=== PATIENT | female | born 1950 | race Caucasian/White ===

== ENCOUNTER → 2018-05-22 09:17 | Outpatient (CLI) | payer MEDICARE, BC, SELFPAY ==
--- NOTE | 2018-05-22 09:25 | XR_ITS ---
XR DEXA axial skeleton HISTORY: ITS.REASON: POST MENOPAUSAL ORDERING PHYSICIAN: Akhil Cunningham MD PATIENT AGE: 67 years COMPARISON: None FINDINGS: The BMD measured at the Right femoral neck is 0.922 g/cm squared with a T score of -0.8. This is considered Normal according to the World Health Organization criteria. Fracture risk is Low. Suggest follow-up exam May 2020. IMPRESSION: Normal bone density with low fracture risk
== END ==
PROVIDERS: PCP Family Medicine; Visit Provider Family Medicine
DX: Z78.0 Asymptomatic menopausal state (principal)
CPT/HCPCS: 77080

== ENCOUNTER 2022-08-27 11:24 | Day surgery (SDC) | payer MEDICARE, SELFPAY ==
[2022-08-27] VITALS (14 sets, daily range): BP systolic 119–183; BP diastolic 74–108; PULSE 76–85; RESP 15–17; TEMP 36.2–36.9; O2SAT 96–100; BMI 25.7
--- NOTE | 2022-08-27 12:30 | P.PN_ITS ---
[facility] Disclaimer: The information contained in this section may have been updated after the patient was seen, as this information can be updated by other users. Medical History (Updated 08/27/22 @ 11:50 by Ilene Pastor RN) Hyperlipidemia Hypertension Surgical History (Updated 08/27/22 @ 11:50 by Ilene Pastor, IAN) History of cholecystectomy Family History (Updated 08/27/22 @ 11:50 by Ilene Pastor RN) Other No significant family history Social History (Updated 08/27/22 @ 11:52 by Ilene Pastor RN) Smoking Status: Never smoker alcohol intake: never substance use type: denies use current occupational status: unemployed Travel in the last 8 weeks: None caffeine: Yes [facility] Anesthesia Checklist Patient Identification Patient Identification: Arm Band Structural Data Admitted From: Home Planned Operative Procedure/s: colonoscopy Consent for Planned Operative Procedure(s) Verified: Yes Verified Documents: Surgical Consent and History and Physical NPO Status Verified Time NPO: 00:00 Additional verifications Anesthesia Reactions: No Airway Assessment C-Spine Mobility Assessed: Yes TMJ Mobility Assessed: Yes Dentition: Good Dentition Neurological Assessment Level of Consciousness: Awake and Alert Anesthesia Plan Anesthesia Risk discussed: Yes Anesthesia Plan: Verified ASA Class: II Anesthesia Type: MAC
--- NOTE | 2022-08-27 13:03 | P.PCN_ITS ---
Procedure: Date: 08/27/22 Patient Date of :: 1950 Procedure Performed:: Total colonoscopy with biopsies of right colon mass Indications:: Patient is a 71-year-old female who underwent Cologuard testing which was positive. She was sent for colonoscopy. Has never had previous colonoscopy. Performing Provider:: Mack Ibrahim MD Referring Provider:: Jannet Streeter MD Sedation:: MAC sedation Procedure:: Patient history was obtained and appropriate physical examination was performed. Patient's medications and allergies were reviewed. Informed consent was obtained after explaining the benefits, alternatives, and risks of the procedure including, but not limited to, bleeding, perforation, missed lesions, and adverse reaction to anesthesia medications. Patient was transported to endoscopy procedure room. Patient was connected to monitoring devices. Throughout the procedure the patient's blood pressure, pulse, and oxygen saturations were monitored continuously. Patient identification and planned procedure were verified by the staff. Patient was positioned in lateral decubitus position. Digital anorectal exam was performed. Variable stiffness Olympus colonoscope was inserted and adva nced under direct visualization to the cecum. Adequacy of the colonic preparation was noted. The colonoscope was then slowly withdrawn while carefully examining the color, texture, anatomy, and integrity of the mucosoa circumferentially. Within the rectum retroflexion was performed. Colonoscope was then withdrawn. In the ascending colon there was a large hemicircumferential mass. Several bio psies were obtained using hot snare obtaining significant tissue samples. This was nonobstructing. Findings:: Scattered rare diverticuli Large semicircumferential irregular colon mass in the ascending colon Recommendations:: I will plan to obtain CT scan for radiographic staging as well as CEA level. She will need right hemicolectomy. Complications:: None immediately apparent Estimated blood obtained (mL): 3
--- NOTE | 2022-08-27 13:09 | CT_ITS ---
FINAL REPORT TECHNIQUE: After the administration of oral and intravenous contrast, axial images were obtained through the abdomen and pelvis by computed tomography. The study was performed with techniques to keep radiation dose as low as reasonably achievable, (ALARA). Individual dose reduction techniques using automated exposure control or adjustment of mA and/or kV according to the patient's size were employed. CLINICAL HISTORY: s/p colonoscopy, colon mass seen in ascending colon FINDINGS: Abdomen: There is mild atelectasis or scar in the lung bases. The liver is normal in size and attenuation. The patient is status post cholecystectomy. There is mild biliary ductal dilatation. The spleen is unremarkable. The adrenals are normal. The pancreas is unremarkable. The kidneys enhance appropriately. The aorta is normal in caliber. There is no free fluid or adenopathy. Pelvis: The appendix is not identified. There is an ascending colon mass measuring 3.5 cm worrisome for neoplasm. The cervix is heterogeneous worrisome for a mass. Fluid is seen in the endometrial cavity. The urinary bladder is unremarkable. There is no free fluid or adenopathy. Note is made of L5 pars defects. IMPRESSION: Ascending colon mass worrisome for neoplasm. Heterogeneous cervix worrisome for neoplasm with fluid in the endometrial cavity. Recommend correlation with gynecologic exam. Reviewed, Interpreted and Dictated by Mack Elaien III, MD Transcribed by Gilda Cabrales Authenticated and [facility]
[2022-08-27 13:36] LABS: Basophils % 0.2 % (0.1-2.0); Eosinophils % 0.6 % (0.1-12.0); Hematocrit 37.4 % (37.0-47.0); Lymphocytes # 1.4 K/mm3 (0.7-4.5); Lymphocytes % 26.2 % (10-50); Mean Corpuscular HGB Conc 32.2 g/dL (31.8-35.4); Mean Corpuscular Hemoglobin 29.1 pg (27.0-31.2); Mean Corpuscular Volume 90.2 fl (81-99); Mean Platelet Volume 8.2 fl (7.4-10.4); Monocytes # 0.3 K/mm3 (0.1-1.0); Monocytes % 4.9 % (1.7-9.3); Neutrophils # 3.5 K/mm3 (1.8-7.8); Neutrophils % 68.1 % (37.0-80.0); Platelet Count 269 K/mm3 (142-424); Red Blood Count 4.14 M/mm3 (4.20-5.40); Red Cell Distribution Width 14.4 % (11.5-17.5); White Blood Count 5.1 K/mm3 (4.8-10.8)
[2022-08-27 13:40] LABS: Alanine Aminotransferase 25 U/L (12-78); Albumin Level 3.8 g/dl (3.5-5.0); Albumin/Globulin Ratio 1.4 (1.1-1.8); Alkaline Phosphatase 72 U/L (38-126); Anion Gap 10.9 mEq/L (5-15); Aspartate Amino Transferase 40 U/L (14-36); Bilirubin,Total 0.8 mg/dl (0.2-1.3); Blood Urea Nitrogen 26 mg/dl (7-17); Calcium 8.8 mg/dl (8.4-10.2); Carbon Dioxide 24 mmol/L (22.0-30.0); Chloride 105 mmol/L (98-107); Creatinine Clearance Estimated 49 mL/min (50-200); Estimated Glomerular Filt Rate 49 ml/min (>60); GFR (African American) 59 ML/MIN (>60); Globulin 2.7 g/dL (1.3-3.2); Glucose 76 mg/dl (74-100); Potassium 3.9 mmoL/L (3.5-5.1); Sodium 136 mmol/L (136-145); Total Protein,Serum 6.5 g/dl (6.3-8.2)
--- NOTE | 2022-08-27 13:58 | SUR.PHASEII ---
1337 - Pt finished w/ oral contrast at this time. Rad aware. 1344 - R Feeback,[employer] made aware of elevation BP, HR 70's. Pt asymptomatic. Orders received for 5 mg Hydralazine IV now, may be repeated in 10 minutes if no improvement w/ parameters given. Pt resting comfortably in bed w/ family @ bedside. Call vega w/in reach. No further needs.
--- NOTE | 2022-08-27 15:29 | PC.NURSE ---
Pt resting in bed comfortably. No needs voiced. Awaiting scheduled CT scan w/ oral and IV contrast.
--- NOTE | 2022-08-27 15:43 | SUR.PHASEII ---
1538 - Pt to rad for CT scan.
--- NOTE | 2022-08-27 16:00 | SUR.PHASEII ---
Pt back to post op @ 1600.
--- NOTE | 2022-08-27 16:10 | SUR.PHASEII ---
1610 - Reviewed DC instructions w/ patient and family at bedside. Discussed following up w/ PCP about hypertension, prev mentioned to family and patient by anesthesia as well.
[2022-08-29 18:24] LABS: CEA 17.2 ng/mL (0.0-4.7)
== END 2022-08-27 16:10 | disposition home or self-care (01) ==
PROVIDERS: PCP Family Medicine; Visit Provider Surgery
PROC: 0DJD8ZZ Inspection of Lower Intestinal Tract, Via Natural or Artificial Opening Endoscopic (ICD-10-PCS; principal; 2022-08-27 12:30)
DX: D12.2 Benign neoplasm of ascending colon; R19.5 Other fecal abnormalities; Z79.899 Other long term (current) drug therapy
CPT/HCPCS: 45380; 36415; 74177; 80053; 82378; 85025; 88305; J2704; Q9967

== ENCOUNTER → 2022-09-09 14:15 | Outpatient (CLI) | payer MEDICARE, SELFPAY | PROVIDERS: PCP Family Medicine; Visit Provider Nurse Practitioner | DX: C18.2 Malignant neoplasm of ascending colon (principal); E78.5 Hyperlipidemia, unspecified; I10 Essential (primary) hypertension; Z01.810 Encounter for preprocedural cardiovascular examination | CPT/HCPCS: 93306 ==

== ENCOUNTER → 2022-09-20 15:44 | Outpatient (CLI) | payer MEDICARE, SELFPAY ==
--- NOTE | 2022-09-20 15:44 | MM_ITS ---
PROCEDURE INFORMATION: Exam: MG Bilateral Screening 3D Mammography Exam date and time: 09/20/2022 3:53 PM Age: 71 years old Clinical indication: Screening mammogram TECHNIQUE: Imaging protocol: Bilateral Screening tomosynthesis and 2D mammography including computer-aided detection (CAD) when performed. COMPARISON: No relevant prior studies available. FINDINGS: MAMMOGRAPHY: Breast composition: There are scattered areas of fibroglandular density. Mass: None. Architectural distortion: No new or suspicious architectural distortion. Calcifications: No new or suspicious calcifications are present Asymmetric density: No new or suspicious asymmetric density is present Skin thickening: None. Axillary adenopathy: None. IMPRESSION: No mammographic evidence of malignancy. Recommend annual screening mammography unless otherwise clinically indicated. ASSESSMENT: BI-RADS category 1: Negative
== END ==
PROVIDERS: PCP Family Medicine; Visit Provider Obstetrics & Gynecology
DX: Z12.31 Encounter for screening mammogram for malignant neoplasm of breast (principal)
CPT/HCPCS: 77063; 77067

== ENCOUNTER → 2022-09-30 10:54 | Outpatient (CLI) | payer MEDICARE, SELFPAY ==
[2022-09-30 11:26] LABS: Blood Urea Nitrogen 20 mg/dl (7-17); Estimated Glomerular Filt Rate 44 ml/min (>60); GFR (African American) 53 ML/MIN (>60)
--- NOTE | 2022-09-30 11:39 | MR_ITS ---
FINAL REPORT CLINICAL HISTORY: CERVIAL MASS COMPARISON: CT August 27, 2022 FINDINGS: Multiplanar MR imaging of the pelvis was performed without and with contrast. Many of the images are degraded by motion artifact. A polypoid mass is seen in the region of the cervix measuring up to 4 cm. Fluid is seen surrounding the mass in the upper vagina. Also noted is a moderate amount of fluid in the endometrial cavity. No other mass or adenopathy is identified. The bony structures are intact. The musculature is intact. IMPRESSION: Polypoid 4 cm cervical mass most worrisome for neoplasm. Moderate endometrial fluid likely related to cervical obstruction. Authenticated and [facility]
--- NOTE | 2022-09-30 12:49 | CT_ITS ---
FINAL REPORT TECHNIQUE: After the administration of intravenous contrast, axial images through the chest were performed by computed tomography.This study was performed with techniques to keep radiation doses as low as reasonably achievable, (ALARA). Individualized dose reduction techniques using automated exposure control or adjustment of mA and/or kV according to the patient''s size were employed. CLINICAL HISTORY: ENDOMETRIAL CANCER FINDINGS: There is no axillary adenopathy. There is no hilar or mediastinal adenopathy. There is a 22 mm right thyroid lobe nodule. The heart size is normal. There is no pericardial or pleural effusion. There is mild atelectasis or scar in the lung bases. No suspicious pulmonary nodule is identified. IMPRESSION: No acute cardiopulmonary process. Right thyroid lobe nodule. Thyroid ultrasound is recommended. Reviewed, Interpreted and Dictated by Mack Elaine III, MD Transcribed by Gilda Cabrales Authenticated and [facility]
--- NOTE | 2022-09-30 12:49 | CT_ITS ---
FINAL REPORT TECHNIQUE: After the administration of oral and intravenous contrast, axial images were obtained through the abdomen and pelvis by computed tomography. The study was performed with techniques to keep radiation dose as low as reasonably achievable, (ALARA). Individual dose reduction techniques using automated exposure control or adjustment of mA and/or kV according to the patient's size were employed. CLINICAL HISTORY: ENDOMETRIAL CANCER COMPARISON: 08/27/2022 FINDINGS: Abdomen: The lung bases are clear. The liver is normal in size and attenuation. The patient is status post cholecystectomy. There is mild biliary ductal dilatation, favor post cholecystectomy change. The spleen is unremarkable. The adrenals are normal. The pancreas is unremarkable. The kidneys enhance appropriately. The aorta is normal in caliber. There is no free fluid or adenopathy. Pelvis: The appendix is normal. There is soft tissue fullness in the ascending colon, mass is not excluded. There is a 4 cm polypoid mass in the cervix worrisome for neoplasm. There is a moderate amount of fluid in the endometrial cavity, likely represents cervical obstruction. Fluid is seen in the upper vagina, similar to prior CT. There are prominent parauterine veins which are worse than previous of uncertain significance. There are degenerative changes in the lumbar spine. The urinary bladder is unremarkable. There is no free fluid or adenopathy. IMPRESSION: Soft tissue fullness in the ascending colon, mass is not excluded. This could be further evaluated with colonoscopy. Stable polypoid mass in the cervix worrisome for neoplasm. Worsening prominent parauterine veins of uncertain significance. Reviewed, Interpreted and Dictated by Mack Ealine III, MD Transcribed by Gilda Cabrales Authenticated and [facility]
== END ==
PROVIDERS: PCP Family Medicine; Visit Provider Obstetrics & Gynecology Gynecologic Oncology
DX: N88.8 Other specified noninflammatory disorders of cervix uteri (principal); C54.1 Malignant neoplasm of endometrium
CPT/HCPCS: 36415; 71260; 72197; 74177; 82565; 84520; A9576; Q9967

== ENCOUNTER → 2023-03-11 09:45 | Outpatient (CLI) | payer MEDICARE, SELFPAY ==
--- NOTE | 2023-03-11 09:53 | US_ITS ---
FINAL REPORT CLINICAL HISTORY: SCREENING COMPARISON: None FINDINGS: THYROID ULTRASOUND: The right lobe of the thyroid is large containing multiple nodules. The right lobe measures 5.5 x 2.7 x 2.24 cm in size. The largest nodule measures 25 x 21 x 20 mm in size, is solid, with some cystic component and isoechoic. This is a TI-RADS category 3 nodule. There is a another nodule in the right lobe measuring 13 x 12 x 13 cm in size, cystic and solid, isoechoic, a TI-RADS 2 category nodule. A third nodule on the right side measures 13 x 13 x 7 mm in size, is solid, isoechoic, a TI-RADS category 3 nodule. The left lobe of the thyroid measures 2.8 x 1 x 1.1 cm in size. The largest nodule on the left side measures 9 x 6 x 6 mm in size, is solid, hypoechoic, a TI-RADS category 4 nodule. There are several other nodules present. The isthmus measures 3 mm in thickness and is unremarkable in appearance. IMPRESSION: Multiple large nodules, the largest of which is in the right lobe of the thyroid gland and measures 25 x 21 x 20 mm in size. This is a large TI-RADS category 3 nodule, and biopsy of this nodule is recommended. Reviewed, Interpreted and Dictated by Mack Elaine III, MD Transcribed by Leelee Saez Authenticated and [facility]
== END ==
PROVIDERS: PCP Family Medicine; Visit Provider Family Medicine
DX: R94.6 Abnormal results of thyroid function studies (principal)
CPT/HCPCS: 76536

== ENCOUNTER 2023-06-24 08:20 | Day surgery (SDC) | payer MEDICARE, SELFPAY ==
[2023-06-21 13:50] VITALS: BMI 27.4
[2023-06-24] MEDS: LACTATED RINGERS 1000ML 1,000 ML 25 ML IV (08:43)
[2023-06-24 08:51] VITALS: BP 176/99; PULSE 74; RESP 18; TEMP 36.4; O2SAT 98
[2023-06-24 10:04] VITALS: O2SAT 98
--- NOTE | 2023-06-24 10:15 | EXP.ANES.CKL ---
[facility] Disclaimer: The information contained in this section may have been updated after the patient was seen, as this information can be updated by other users. Medical History Adenocarcinoma in situ of cervix Cervical cancer Cervical mass Hyperlipidemia Hypertension Surgical History History of cholecystectomy History of colon resection History of colonoscopy Family History Other No significant family history Social History Smoking Status: Never smoker alcohol intake: never substance use type: denies use current occupational status: unemployed Travel in the last 8 weeks: None caffeine: Yes [facility] Anesthesia Checklist Patient Identification Patient Identification: Arm Band Structural Data Admitted From: Home Planned Operative Procedure/s: Colonoscopy Consent for Planned Operative Procedure(s) Verified: Yes Verified Documents: Surgical Consent and History and Physical NPO Status Verified Time NPO: 00:00 Additional verifications Anesthesia Reactions: No Airway Assessment Mallampati Score:: Class II C-Spine Mobility Assessed: Yes TMJ Mobility Assessed: Yes Dentition: Good Dentition Neurological Assessment Level of Consciousness: Awake and Alert Anesthesia Plan Anesthesia Risk discussed: Yes Anesthesia Plan: Verified ASA Class: II Anesthesia Type: MAC
[2023-06-24 10:28] VITALS: BP 113/80; PULSE 69; RESP 15; TEMP 36.6; O2SAT 98
--- NOTE | 2023-06-24 10:28 | P.PCN_ITS ---
Procedure: Date: 06/24/23 Patient Date of :: 1950 Procedure Performed:: Total colonoscopy to ileal colic anastomosis with biopsy Indications:: Patient is a 72-year-old female. She had a positive Cologuard and underwent colonoscopy on 08/27/2022 which revealed most notable a large Jeff circumferential irregular colon mass in the ascending colon. Interestingly biopsies revealed tubular adenoma. CEA level was 17.2. Patient also had noted some vaginal discharge. She had a CT scan done for radiographic imaging which revealed ascending colon mass and findings consistent with cervical carcinoma. She ultimately was taking care of of from an oncologic standpoint at [facility]. Consensus was that she needed a follow-up colonoscopy within 1 year. Performing Provider:: Mack Ibrahim MD Referring Provider:: MD Heriberto Balderas MD Sedation:: MAC sedation Procedure:: Patient history was obtained and appropriate physical examination was performed. Patient's medications and allergies were reviewed. Informed consent was obtained after explaining the benefits, alternatives, and risks of the procedure including, but not limited to, bleeding, perforation, missed lesions, and adverse reaction to anesthesia medications. Patient was transported to endoscopy procedure room. Patient was connected to monitoring devices. Throughout the procedure the patient's blood pressure, pulse, and oxygen saturations were monitored continuously. Patient identification and planned procedure were verified by the staff. Patient was positioned in lateral decubitus position. Digital anorectal exam was performed. Variable stiffness Olympus colonoscope was inserted and advanced under direct visualization to the ileocolic anastomosis. Adequacy of the colonic preparation was noted. The colonoscope was advanced a short distance into the terminal ileum. A couple biopsies were obtained at the anastomosis to rule out microscopic early recurrence although this seemed unlikely. The colonoscope was then slowly withdrawn while carefully examining the color, texture, anatomy, and integrity of the mucosoa circumferentially. Within the rectum retroflexion was performed. Colonoscope was then withdrawn. . Findings:: Rare diverticulosis No polyps or evidence of local recurrence Recommendations:: Consensus is from her medical oncology and surgical oncology team to proceed with colonoscopy in 1 year. Complications:: None immediately apparent Estimated blood obtained (mL): 1 Colonoscopy Component Colonoscopy Component Was a colonoscopy performed during today's procedure?: Yes Recommended follow up colonoscopy of at least 10 years?: No If no, follow up colonoscopy recommended in ___ years?: 1 Reason for not recommending >/= 10 yr follow-up interval?: Colon cancer
[2023-06-24 10:38] VITALS: BP 118/80; PULSE 72; RESP 17; O2SAT 97
[2023-06-24 10:48] VITALS: BP 140/82; PULSE 82; RESP 17; O2SAT 97
== END 2023-06-24 11:05 | disposition home or self-care (01) ==
PROVIDERS: PCP Family Medicine; Visit Provider Surgery
PROC: 0DJD8ZZ Inspection of Lower Intestinal Tract, Via Natural or Artificial Opening Endoscopic (ICD-10-PCS; CPT G0105; principal; 2023-06-24 09:30)
DX: Z85.038 Personal history of other malignant neoplasm of large intestine (principal); Z98.0 Intestinal bypass and anastomosis status; Z12.11 Encounter for screening for malignant neoplasm of colon; K57.90 Diverticulosis of intestine, part unspecified, without perforation or abscess without bleeding; Z86.010 Personal history of colon polyps
CPT/HCPCS: G0105; 88305

== ENCOUNTER 2023-09-23 09:15 | Outpatient (CLI) | payer MEDICARE, SELFPAY ==
--- NOTE | 2023-09-23 09:21 | XR_ITS ---
FINAL REPORT TECHNIQUE: Bone mineral density was calculated of the lumbar spine and hip. CLINICAL HISTORY: SCREENING COMPARISON: None FINDINGS: Using L1-4, the bone mineral density of the spine is 1.039 g/cm2, corresponding to T-score of -0.1. Using the left hip, the bone mineral density of the femoral neck is 0.724 g/cm2, corresponding to a T-score of -1.1. Using the right hip, the bone mineral density of the femoral neck is 0.708 g/cm?, corresponding to a T-score of -1.3. NOTE: T-score: Standard deviation compared with peak bone mass of young adult mean. *Following the recommendations of the International Society of Bone densitometry, classification of hip BMD is based on the lower of two T-scores; total hip or femoral neck. IMPRESSION: Diminished bone mineral density of the bilateral hips consistent with low bone density. Normal bone mineral density in the lumbar spine, however this is likely falsely elevated secondary to hypertrophic change. Reviewed, Interpreted and Dictated by Mack Elaine III, MD Transcribed by Leelee Saez Authenticated and [facility]
--- NOTE | 2023-09-23 09:50 | MM_ITS ---
PROCEDURE INFORMATION: Exam: MG Bilateral Screening 3D Mammography Exam date and time: 09/23/2023 9:44 AM Age: 72 years old Clinical indication: Screening examination TECHNIQUE: Imaging protocol: Bilateral Screening tomosynthesis and 2D mammography including computer-aided detection (CAD) when performed. Limited patient mobility COMPARISON: MG MM DIG SCREENING MAMM BI W/CAD 09/20/2022 3:53 PM FINDINGS: MAMMOGRAPHY: Breast composition: There are scattered areas of fibroglandular density. Mass: None. Architectural distortion: None. Calcifications: No suspicious calcifications. Asymmetric density: None. Skin thickening: None. Axillary adenopathy: Limited evaluation of the axilla bilaterally due to the patient's inability to fully cooperate with the examination IMPRESSION: No mammographic evidence of malignancy. Annual screening is recommended unless otherwise clinically indicated. ASSESSMENT: BI-RADS Category 1: Negative
== END 2023-09-23 23:59 | disposition home or self-care (01) ==
LOC: RAD 09:16
PROVIDERS: PCP Family Medicine; Visit Provider Family Medicine
DX: Z12.31 Encounter for screening mammogram for malignant neoplasm of breast (principal); Z13.820 Encounter for screening for osteoporosis; Z78.0 Asymptomatic menopausal state
CPT/HCPCS: 77063; 77067; 77080

== ENCOUNTER 2024-02-10 07:08 | Day surgery (SDC) | payer MEDICARE, SELFPAY ==
[2024-02-07 16:20] VITALS: BMI 25.7
[2024-02-10] VITALS (7 sets, daily range): BP systolic 89–180; BP diastolic 54–100; PULSE 60–64; RESP 14–18; TEMP 36.2–36.6; O2SAT 96–100
[2024-02-10] MEDS: LACTATED RINGERS 1000ML 1,000 ML 25 ML IV (07:26)
--- NOTE | 2024-02-10 07:53 | P.PNANES_ITS ---
[facility] Disclaimer: The information contained in this section may have been updated after the patient was seen, as this information can be updated by other users. Medical History COVID-19 Colon cancer Cervical cancer Adenocarcinoma in situ of cervix Cervical mass Hyperlipidemia Hypertension Surgical History History of colon resection History of colonoscopy History of cholecystectomy Family History Other No significant family history Social History Smoking Status: Never smoker alcohol intake: never substance use type: denies use current occupational status: unemployed Travel in the last 8 weeks: None caffeine: Yes [facility] Anesthesia Checklist Patient Identification Patient Identification: Arm Band Structural Data Admitted From: Home Planned Operative Procedure/s: Colonoscopy Consent for Planned Operative Procedure(s) Verified: Yes Verified Documents: Surgical Consent and History and Physical NPO Status Verified Time NPO: 00:00 Additional verifications Anesthesia Reactions: No Airway Assessment Mallampati Score:: Class II C-Spine Mobility Assessed: Yes TMJ Mobility Assessed: Yes Dentition: Good Dentition Neurological Assessment Level of Consciousness: Awake, Alert and Appropriate Anesthesia Plan Anesthesia Risk discussed: Yes Anesthesia Plan: Verified ASA Class: II Anesthesia Type: MAC
--- NOTE | 2024-02-10 08:37 | HMH.SCOPE ---
Procedure: Date: 02/10/24 Patient Date of :: 1950 Procedure Performed:: Colonoscopy to ileocolic anastomosis with biopsy Indications:: Patient is a 73-year-old female whom I had performed colonoscopy on for positive Cologuard on 08/27/2022. She was found to have a Jeff circumferential irregular colon mass in the ascending colon with biopsies revealing tubular adenoma. She ultimately was taken care of from an oncologic standpoint at [facility] with Dr. Heriberto Gupta performing colon resection for what was proven to be colon cancer and she has also been cared for from the gynecologic oncology team. Consensus was for colonoscopy within 1 year. I performed a colonoscopy on 06/24/2023 which revealed rare diverticulosis with no evidence of any polyps or local recurrence. Her oncology team requested 2 colonoscopies within 1 year for assurance. . Performing Provider:: Mack Ibrahim MD Referring Provider:: MD Heriberto Bazan MD . Sedation:: MAC sedation Procedure:: Patient history was obtained and appropriate physical examination was performed. Patient's medications and allergies were reviewed. Informed consent was obtained after explaining the benefits, alternatives, and risks of the procedure including, but not limited to, bleeding, perforation, missed lesions, and adverse reaction to anesthesia medications. Patient was transported to endoscopy procedure room. Patient was connected to monitoring devices. Throughout the procedure the patient's blood pressure, pulse, and oxygen saturations were monitored continuously. Patient identification and planned procedure were verified by the staff. Patient was positioned in lateral decubitus position. Digital anorectal exam was performed. Variable stiffness Olympus colonoscope was inserted and advanced. Adequacy of the colonic preparation was noted. Ileocolic anastomosis was identified. The colonoscope was advanced a short distance into the terminal ileum. There was some mild granulation tissue. Biopsies were performed. The colonoscope was then slowly withdrawn while carefully examining the color, texture, anatomy, and integrity of the mucosoa circumferentially. She had some sigmoid diverticulosis. Within the rectum retroflexion was performed. There was internal anal papilla. Colonoscope was then withdrawn. . Findings:: No evidence of any recurrence at ileocolic anastomosis, some granulation tissue, biopsied Rare sigmoid diverticulosis Internal anal papilla Recommendations:: Likely repeat colonoscopy 1 year Complications:: None immediately apparent Estimated blood obtained (mL): 1 Colonoscopy Component Colonoscopy Component Was a colonoscopy performed during today's procedure?: Yes Recommended follow up colonoscopy of at least 10 years?: No If no, follow up colonoscopy recommended in ___ years?: 1 Reason for not recommending >/= 10 yr follow-up interval?: Colon cancer
== END 2024-02-10 09:58 | disposition home or self-care (01) ==
PROVIDERS: PCP Family Medicine; Visit Provider Surgery
PROC: 0DJD8ZZ Inspection of Lower Intestinal Tract, Via Natural or Artificial Opening Endoscopic (ICD-10-PCS; CPT 45380; principal; 2024-02-10 08:30)
DX: Z85.038 Personal history of other malignant neoplasm of large intestine (principal); K57.30 Diverticulosis of large intestine without perforation or abscess without bleeding
CPT/HCPCS: 45380; J7120

== ENCOUNTER 2024-09-28 14:53 | Outpatient (CLI) | payer MEDICARE, SELFPAY ==
--- NOTE | 2024-09-28 15:30 | MM_ITS ---
PROCEDURE INFORMATION: Exam: MG Bilateral Screening 3D Mammography Exam date and time: 09/28/2024 3:20 PM Age: 73 years old Clinical indication: Screening. No family history of breast cancer. TECHNIQUE: Imaging protocol: Bilateral Screening tomosynthesis and 2D mammography including computer-aided detection (CAD) when performed. COMPARISON: 1. MG MM DIG SCREENING MAMM BI W/CAD 09/23/2023 9:44 AM 2. MG MM DIG SCREENING MAMM BI W/CAD 09/20/2022 3:53 PM FINDINGS: MAMMOGRAPHY: Breast composition: There are scattered areas of fibroglandular density. Mass: None. Architectural distortion: None. Calcifications: No suspicious calcifications. Asymmetric density: None. Skin thickening: None. Axillary adenopathy: None. IMPRESSION: No mammographic evidence of malignancy. Annual screening is recommended unless otherwise clinically indicated. ASSESSMENT: BI-RADS Category 1: Negative.
== END 2024-09-28 23:59 | disposition home or self-care (01) ==
LOC: RAD 14:54
PROVIDERS: PCP Family Medicine; Visit Provider Obstetrics & Gynecology
DX: Z12.31 Encounter for screening mammogram for malignant neoplasm of breast (principal); R92.323 Mammographic fibroglandular density, bilateral breasts
CPT/HCPCS: 77063; 77067

== ENCOUNTER 2024-12-25 14:35 | Outpatient (CLI) | payer MEDICARE, SELFPAY ==
--- OUTSIDE RECORDS SUMMARY | 2024-12-04 08:05 | XMS_ITS | Encounter Summary ---
Author Organization [facility] Address [address] [place] [address] Care Team Providers Care Decorating Supervisor Name Role Phone Nolberto Streeter MD Primary Care Provider [phone] Aniya Kathleen MD Unavailable [phone] Encounter Details Date Type Department Care Team (Late st Contact Info) Description 12/04/2024 8:05 AM EDT Ancillary Procedure [facility] [address] [place] [address] Social History Tobacco Use Types [...] [address] [place] [address] Anne Garland MD [address] [place] [address] 06/07/2025 9:15 AM EST Office Visit [facility] [address] [place] [address] Triston Velasquez MD [address] [place] [address] 06/28/2025 9:30 AM EST Appointment [facility] [id number] [place] [address] Aniya Kathleen MD [address] [place] [address] documented as of this encounter [...] documented as of this encounter Care Teams Decorating Supervisor Relationship Specialty Start Date End Date Nolberto Streeter MD 430 [facility] [address] [place] [address] PCP - General 09/28/22 Aniya Kathleen MD 800 [facility] [address] [place] [address] Consulting Physician Radiation Therapy 08/05/23 documented as of this encounter
--- OUTSIDE RECORDS SUMMARY | 2024-12-04 08:15 | XMS_ITS | Encounter Summary ---
Author Organization [facility] Address [address] [place] [address] Care Team Providers Care Client Director Name Role Phone Nolberto Streeter MD Primary Care Provider [phone] Aniya Kathleen MD Unavailable [phone] Reason for Visit * Reason Comments At high risk for open angle glaucoma of both eyes Encounter Details Date Type Department Care Team (Late st Contact Info) Description 12/04/2024 8:15 AM EDT Office Visit [facility] [address] [place] [address] Triston Velasquez MD [address] [address] At high risk for open [...] [address] [place] [address] Anne Garland MD [address] [place] [address] 06/07/2025 9:15 AM EST Office Visit [facility] [address] [place] [address] Triston Velasquez MD [address] [place] [address] 06/28/2025 9:30 AM EST Appointment [facility] [id number] [place] [address] Aniya Kathleen MD [address] [place] [address] documented as of this encounter [...] documented as of this encounter Care Teams Client Director Relationship Specialty Start Date End Date Nolberto Streeter MD 430 [facility] [address] [place] [address] PCP - General 09/28/22 Aniya Kathleen MD [address] [place] [address] [address] [place] [address] Consulting Physician Radiation Therapy 08/05/23 documented as of this encounter
--- OUTSIDE RECORDS SUMMARY | 2024-12-07 08:29 | XMS_ITS | Encounter Summary ---
Author Organization [facility] Address [address] [place] [address] Care Team Providers Care Day Care Director Name Role Phone Nolberto Streeter MD Primary Care Provider [phone] Aniya Kathleen MD Unavailable [phone] Reason for Visit * Reason Comments Follow-up Encounter Details Date Type Department Care Team (Latest Contact Info) Description 12/07/2024 8:29 AM EDT - 12/07/2024 11:59 PM EDT Hospital Encounter [facility] [id number] [place] [address] Aniya Kathleen MD [address] [place] [address] Malignant neoplasm of overlapping sites [...] vaginla discharge and was seen by a range operator that, in the pelvic exam identified a [...] four extremities. No edema. Pelvic: Performed with warhead maintenance specialist. normal external genitalia, vagina shows possible post-radiation [...] [address] [place] [address] Anne Garland MD [address] [facility] [address] [place] [address] 06/07/2025 9:15 AM EST Office Visit [facility] [address] [facility] [place] [address] Triston Velasquez MD [address] [facility] [address] [place] [address] 06/28/2025 9:30 AM EST Appointment [facility] [id number] [place] [address] Aniya Kathleen MD [address] [place] [address] documented as of this encounter Visit Diagnoses [...] documented as of this encounter Care Teams Day Care Director Relationship Specialty Start Date End Date Nolberto Streeter MD 430 [facility] [address] [place] [address] PCP - General 09/28/22 Aniya Kathleen MD [address] [address] Consulting Physician Radiation Therapy 08/05/23 documented as of this encounter
--- NOTE | 2024-12-25 14:39 | XR_ITS ---
FINAL REPORT CLINICAL HISTORY: RIB PAIN fall tuesday posterior rib pain COMPARISON: None FINDINGS: A single view of the chest with 2 views of the ribs were obtained. There is no acute cardiopulmonary process. No pneumothorax is identified. There is a questionable fracture of the posterior left 10th rib. IMPRESSION: Questionable left 10th posterior rib fracture. Reviewed, Interpreted and Dictated by Heriberto Rodríguez MD Transcribed by Chanelle Palencia Authenticated and [facility]
--- OUTSIDE RECORDS SUMMARY | 2024-12-25 14:39 | XMS_ITS | Encounter Summary ---
Author Organization [facility] Address [address] [place] [address] Care Team Providers Care Special Education Coordinator Name Role Phone Nolberto Streeter MD Primary Care Provider [phone] Aniya Kathleen MD Unavailable [phone] Encounter Details Date Type Department Care Team (Latest Contact Info) Description 12/07/2024 Travel Social History Tobacco Use Types Packs/Day Years [...] Upcoming Encounters Date Type Department Care Team ( Contact Info) Description 03/15/2025 8:00 AM EST Office Visit [facility] [address] [place] [address] Anne Garland MD [address] [place] [address] 06/07/2025 9:15 AM EST Office Visit [facility] [address] [place] [address] Triston Velasquez MD [address] [facility] [address] [place] [address] 06/28/2025 9:30 AM EST Appointment [facility] [id number] [place] [address] Aniya Kathleen MD 800 [facility] [address] [place] [address] documented as of this encounter Visit Diagnoses Not on filedocumented in this encounter Additional Health Concerns Assessment Noted Time A fall risk assessment has been complete d for the patient 12/07/2024 8:48 AM EDT A Body Mass Index follow-up plan has been documented for the patient 12/04/2024 9:30 AM EDT documented as of this encounter Care Teams Special Education Coordinator Relationship Specialty Start Date End Date Nolberto Streeter MD [address] [place] [address] [address] [place] [address] PCP - General 09/28/22 Aniya Kathleen MD [address] [place] [address]D [place] [address] Consulting Physician Radiation Therapy 08/05/23 documented as of this encounter
--- OUTSIDE RECORDS SUMMARY | 2024-12-25 14:39 | XMS_ITS | Encounter Summary ---
Author Organization [facility] Address [address] [place] [address] Care Team Providers Care School Nurse Name Role Phone Nolberto Streeter MD Primary Care Provider [phone] Aniya Kathleen MD Unavailable [phone] Encounter Details Date Type Department Care Team (Late st Contact Info) Description 09/30/2022 Lab Requisition [facility] [address] [place] [address] Anne Garland MD 800 [facility] [address] [place] [address] Other specified noninflammatory disorders of uterus Social History Tobacco Use Types Packs/Day Years Used Date Smoking Tobacco: Never Passive Smoke Exposure: Past Smokeless Tobacco: Never Alcohol Use Standard Drinks/Week Comments Never 0 (1 standard drink = 0.6 oz pur e alcohol) PHQ-2 Answer Date Recorded Patient Health Questionnaire-2 Score 0 09/29/2022 Comments No Sex and Gender Information Value [...] [address] [address] Anne Garland MD [address] [place] [address] 06/07/2025 9:15 AM EST Office Visit [facility] [address] [place] [address] Triston Velasquez MD [address] [facility] [address] [place] [address] 06/28/2025 9:30 AM EST Appointment [facility] Radiation [address] [id number] [place] [address] Aniya Kathleen MD [address] [place] [address] documented as of this encounter Procedures Procedure Name Priority Date/Time Associated Diagnosis Comments SURGICAL PATHOLOGY CONSULT Routine 09/30/2022 10:59 AM EDT Other specified noninflammatory disorders of uterus documented in this encounter Results * Surgical Pathology Consult (09/30/2022 10:59 AM EDT) Case Report Sugical Pathology Consult Case: [id number] Authorizing Provider: Anne Garland MD Collected: 09/30/2022 1059 Ordering Location: [facility] Received: 09/30/2022 1059 Pathologist: Xiomara Almonte MD Specimen: Cervix, [id number] 10/05/2022 3:42 PM EDT [facility] Final Diagnosis A. CERVIX, BIOPSY (OUTSIDE SLIDES [id number], 09/16/22): - AT LEAST ENDOCERVICAL ADENOCARCINOMA IN SITU; NO DEFINITE INVASION IDENTIFIED 10/05/2022 3:42 PM EDT [facility] at 1542 EDT Comment The tumor is morphologically similar to the subsequent biopsy [id number]. Please refer to that report for the immunohistochemical results. 10/05/2022 3:[address] [facility] Clinical Information N85.8 - Other specified noninflammatory disorders of uterus [ICD-10-CM] 10/05/2022 3:42 PM EDT [facility] Gross Description A. [id number] Received along with a corresponding pathology report from [facility] is 1 slide labeled outside case: [id number] collected on 09/16/2022. 10/05/2022 3:42 PM EDT [facility] Note: A resident was involved in the service. I attest I examined the relevant preparations for the specimens and confirmed the diagnosis or interpretation. 10/05/2022 3:[address] [facility] Tissue Cervix uteri structure / Unknown 09/30/2022 10:59 AM EDT 09/30/2022 10:59 AM EDT Anne Garland MD LAB PATHOLOGY ORDERABLES Final Result [facility] [address] [place] [address] documented in this encounter Visit Diagnoses Diagnosis Other specified noninflammatory disorders of uterus documented in this encounter Additional Health Concerns Assessment Noted Time A fall risk assessment has been complete d for the patient 09/29/2022 12:27 PM EDT A Body Mass Index follow-up plan has been documented for the patient 10/05/2022 9:28 AM EDT documented as of this encounter Care Teams School Nurse Relationship Specialty Start Date End Date Nolberto Streeter MD [address] [place] [address] [address] [place] [address] PCP - General 09/28/22 Aniya Kathleen MD [address] [place] [address] [address] [place] [address] Consulting Physician Radiation Therapy 08/05/23 documented as of this encounter
--- OUTSIDE RECORDS SUMMARY | 2024-12-25 14:39 | XMS_ITS ---
Author Organization [facility] Address [address] [place] [address] Care Team Providers Care Page Makeup System Operator Name Role Phone Nolberto Streeter MD Primary Care Provider [phone] Aniya Kathleen MD Unavailable [phone] Active Problems Problem Noted Date Diagnosed Date Primary hypertension 12/06/2022 Malignant neoplasm of overlapping sites of cervi x 11/30/2022 Cancer Staging:Clinical:FIGO Stage IIA2(cT2a2, cN0, cM0) - Signed by Anne Garland MD on 12/06/2022 Adenomatous polyp of ascending colon 10/05/2022 Overview (10/05/2022): Added automatically from request for surgery [id number] Current Treatment and Therapy Plans No current plan information found. Past Treatment and Therapy Plans Line Care Plan Name Start Date Discontinue Date Treatment Medications Discontinue Reason Plan Provider (ONC) MED ONC OUTPATIENT ELECTROLYTE REPLACEMENT PROTOCOL 01/11/2023 02/17/2024 No medications scheduled. Therapy Complete Anne Garland MD Oncology Treatment Plan Name Start Date Discontinue Date Treatment Medications Discontinue Reason Plan Provider Cycles CISplatin Weekly x 5 + XRT 12/28/2022 05/11/2023 CISplatin (Platinol) IVPB Therapy Complete Anne Garland MD 1 of 1 cycle started Current Radiation Episodes * VMAT: PelvisOverview* First Treatment Date Latest Treatment Date Treatment Site Technique Goal Episode Provider 12/29/2022 02/07/2023 Pelvis VMAT Curative * Linked Problems Cervical cancer Treatment Courses* Course C1 12/29/2022 - 02/07/2023 Treatment Period Fraction Dose Fractions Total Dose Plans Planned [id number] 12/29/2022 - 02/07/2023 220 cGy 5 ,500 cGy Reference Points Delivered [id number]_55Gy 12/29/2022 - 02/07/2023 5,500 cGy Resolved Problems Problem Noted Date Diagnosed Date Resolved Date Malignant neoplasm of cervix , unspecified site 12/09/2022 12/10/2022 Malignant neoplasm of ascending colon 09/29/2022 11/30/2022
--- OUTSIDE RECORDS SUMMARY | 2024-12-25 14:39 | XMS_ITS | Clinical Summary ---
Author Organization [facility] Address [address] [place] [address] Care Team Providers Care Silver Miner Blasting Name Role Phone Nolberto Streeter MD Primary Care Provider [phone] Aniya Kathleen MD Unavailable Allergies Active Allergy Reactions Criticality Noted Date Comments Hydrochlorothiazide Dizziness,Other - pl ease document in the comment field Low 08/27/2022 Medications atenolol (Tenormin) 25 MG tablet Take 1 tablet (25 mg) by mouth 2 (two) times a day. 3 Active aspirin 81 MG EC tablet Take 1 tablet (81 mg) by mouth daily. Active Multiple Vitamins-Minera ls (Womens Multi Vitamin & Mineral) tablet Take 1 tablet by mouth 1 (one) time each day. Active atorvastatin (Lipitor) 20 MG tablet Take 1 tablet (20 mg) by mouth daily. Active Dorzolamide HCl-Timolol Mal PF 2-0.5 % solution INSTILL 1 TWICE DAILY INTO EACH EYE 4 Active latanoprost (Xalatan) 0.005 % ophthalmic solution Administer 1 drop into both eyes every night. 2.5 mL 3 4 Active Additional Information Patient not taking.Reported on 12/07/2024 ofloxacin (Ocuflox) 0.3 % ophthalmic solution Administer 1 drop into the left eye 3 (three) times a day. 10 mL 1 10/14/202 4 Active Additional Information Patient not taking.Reported on 12/07/2024 prednisoLONE acetate (Pred-Forte) 1 % ophthalmic suspension Administer 1 drop into the right eye 4 (four) times a day. 10 mL 3 4 Active Additional Information Patient not taking.Reported on 12/07/2024 dorzolamide-paola olol (Cosopt) 2-0.5 % ophthalmic solution Administer 1 drop into both eyes in the morning and 1 drop before bedtime. 10 mL 6 5 Active dorzolamide-paola olol (Cosopt) 2-0.5 % ophthalmic solution Administer 1 drop into both eyes 2 times a day. 10 mL 6 5 Active Active Problems Problem Noted Date Diagnosed Date Primary hypertension 12/06/2022 Malignant neoplasm of overlapping sites of cervi x 11/30/2022 Cancer Staging:Clinical:FIGO Stage IIA2(cT2a2, cN0, cM0) - Signed by Anne Garland MD on 12/06/2022 Adenomatous polyp of ascending colon 10/05/2022 Overview (10/05/2022): Added automatically from request for surgery [id number] Resolved Problems Problem Noted Date Diagnosed Date Resolved Date Malignant neoplasm of cervix , unspecified site 12/09/2022 12/10/2022 Malignant neoplasm of ascending colon 09/29/2022 11/30/2022 Encounters Date Type Department Care Team Description 12/07/2024 8:29 AM EDT - 12/07/2024 11:59 PM EDT Hospital Encounter [facility] 800 [facility]. [id number] [place] [address] Aniya Kathleen MD Malignant neoplasm of overlapping sites of cervix (CMS/HCC) (Primary Dx) Discharge Disposition: Still a Patient 12/07/2024 Travel 12/04/2024 8:15 AM EDT Office Visit [facility] [address] [place] [address] Triston Velasquez MD At high risk for open angle glaucoma of both eyes (Primary Dx); Pseudophakia of both eyes 12/04/2024 8:05 AM EDT Ancillary Procedure [facility] [address] [place] [address] 12/04/2024 Telephone [facility] [id number] [place] [address] Aniya Kathleen MD 12/04/2024 Travel from Last 3 Months Immunizations Immunization Administration Dates Next Due Moderna COVID-19 Vaccine (Re d Cap) 12+ years 08/19/2021,03/18/2021,07/16/2020,2020 Moderna COVID-19 Vaccine Biv alent 6months+ 02/10/2022 Moderna Covid-19 Vaccine 12y +, Herson Protein, Preservative free 03/03/2023 Social History Tobacco Use Types Packs/Day Years [...] AM EDT Sexual Orientation Not on file Last Filed Vital Signs Vital Sign Reading [...] lb 11.7 oz) 8:45 AM EDT Height 162.6 cm (5' 4 ) 07/06/2024 8:02 AM EST Body Mass Index 27.25 07/06/2024 8:02 AM EST Plan of Treatment Upcoming Encounters Date Type Department Care Team (Late st Contact Info) Description 03/15/2025 8:00 AM EST Office Visit [facility] [address] [place] [address] Anne Garland MD [address] [place] [address] 06/07/2025 9:15 AM EST Office Visit [facility] [address] [place] [address] Triston Velasquez MD [address] [place] [address] 06/28/2025 9:30 AM EST Appointment [facility] [address] PG[address] [place] [address] Aniya Kathleen MD [address] [place] [address] Health Maintenance Due Date Last Done Comments [facility]-Bone Density Scan 1950 [facility]-Hepatitis C Screening 1950 [facility]-Medicare Annual Wellness (AWV) 1950 [facility]-Infant/Child/Adol SDOH Screenings 1948 [facility]- SDOH Screenings 1966 [facility]-Adult SDOH Screenings 1966 [facility]-Pneumococcal Vaccine: 50+ Years (1 of 2 - PCV) 12/14/1967 [facility]-Zoster Vaccines (1 of 2) 12/14/1967 [facility]-RSV Vaccine: 60+ Years or (1 - 1-dose 75+ series) 12/14/2023 [id number] Vaccine (8 - Moderna risk 2023- season) 2024 05/07/2024, 03/03/2023, 02/10/2022, Additional history exists [facility]-Influenza Vaccine (#1) 2025 05/07/2024, [facility]-Depression Screening 08/17/2025 08/17/2024 [facility]-DTaP,Tdap,and Td Vaccines (2 - Td or Tdap) 07/26/2033 07/27/2023 [facility]-Obesity Intervention Completed 025, 07/31/2024, 07/16/2024, Additional history exists HPV Vaccines Aged Out No longer eligi ble based on patient's age to complete this topic [facility]-HIB Vaccines Aged Out No longer e ligible based on patient's age to complete this topic [facility]-Hepatitis A Vaccines Aged Out No longer eligible based on patient's age to complete this topic [facility]-IPV Vaccines Aged Out No longer e ligible based on patient's age to complete this topic [facility]-Rotavirus Vaccines Aged Out No lo nger eligible based on patient's age to complete this topic Procedures Procedure Name Priority Date/Time Associated Diagnosis Comments OCT, OPTIC NERVE - OU - BOTH EYES Routine 12/04/2024 9:24 AM EDT At high risk for open angle glaucoma of both eyes from Last 3 Months Results * OCT, Optic Nerve - OU [...] Triston Velasquez MD OPHTH TOMOGRAPHY Final Result from Last 3 Months Insurance [facility] MEDICARE Advance Directives * Full Code (Latest Code Status on File) Date Activated Date Inactivated Comments 10/27/2022 11:51 AM 10/30/2022 2:28 PM Question Answer Comments Patient has decision-making capacity? Yes Care Teams Silver Miner Blasting Relationship Specialty Start Date End Date Nolberto Streeter MD [address] [place] [address] [address] [place] [address] PCP - General 09/28/22 Aniya Kathleen MD [address] [place] [address] [address] [place] [address] Consulting Physician Radiation Therapy 08/05/23
--- OUTSIDE RECORDS SUMMARY | 2024-12-25 14:39 | XMS_ITS | Encounter Summary ---
Author Organization [facility] Address [address] [place] [address] Care Team Providers Care Product Marketing Consultant Name Role Phone Nolberto Streeter MD Primary Care Provider [phone] Aniya Kathleen MD Unavailable [phone] Encounter Details Date Type Department Care Team (Late st Contact Info) Description 12/04/2024 Telephone [facility] [address] [place] [address] Aniya Kathleen MD [address] [place] [address] Social History Tobacco Use Types Packs/Day Years [...] [address] [place] [address] Anne Garland MD 800 [facility] [address] [facility] [address] [place] [address] 06/07/2025 9:15 AM EST Office Visit [facility] [address] [place] [address] Triston Velasquez MD 110 [facility] [address] [place] [address] 06/28/2025 9:30 AM EST Appointment [facility] 800 [facility]. [id number] [place] [address] Aniya Kathleen MD 800 [facility] [address] [place] [address] documented as of this encounter Visit Diagnoses Not on filedocumented in this encounter Additional Health Concerns Assessment Noted Time A fall risk assessment has been complete d for the patient 12/04/2024 8:31 AM EDT A Body Mass Index follow-up plan has been documented for the patient 12/04/2024 9:30 AM EDT documented as of this encounter Care Teams Product Marketing Consultant Relationship Specialty Start Date End Date Nolberto Streeter MD [address] [place] [address] [address] [place] [address] PCP - General 09/28/22 Aniya Kathleen MD [id number] [place] [address] Consulting Physician Radiation Therapy 08/05/23 documented as of this encounter
--- OUTSIDE RECORDS SUMMARY | 2024-12-25 14:39 | XMS_ITS | Encounter Summary ---
Author Organization [facility] Address [address] [address] Care Team Providers Care Cupola Tender Helper Name Role Phone Nolberto Streeter MD Primary Care Provider [phone] Aniya Kathleen MD Unavailable [phone] Encounter Details Date Type Department Care Team (Late st Contact Info) Description 08/27/2022 Orders Only External Location [address] [place] [address] Mack Ibrahim MD [address] [place], [place] [id number] Social History Tobacco Use Types Packs/Day Years Used Date Smoking Tobacco: Never Assessed Comments Unknown Sex and Gender Information Value Date Recorded Sex Assigned at Female 10/27/2022 8:11 AM EDT Legal Sex Female 3:50 PM EDT Gender Identity Female 10/27/2022 8:11 AM EDT Sexual Orientation Not on file documented as of this encounter Plan of Treatment Upcoming Encounters Date Type Department Care Team (Late Contact Info) Description 03/15/2025 8:00 AM EST Office Visit [facility] [address] [place] [address] Anne Garland MD [address] [place] [address] 06/07/2025 9:15 AM EST Office Visit [facility] [address] [place] [address] Triston Velasquez MD [address] [facility] [address] [place] [address] 06/28/2025 9:30 AM EST Appointment [facility] 800 [facility]. [id number] [place] [address] Aniya Kathleen MD [address] [address] documented as of this encounter Procedures Procedure Name Priority Date/Time Associated Diagnosis Comments CT ABDOMEN PELVIS W IV CONTRAST 08/27/2022 3:40 PM EDT documented in this encounter Results * CT Abdomen Pelvis w IV Contrast (08/27/2022 3:40 PM EDT) Anatomical Region Laterality Modality Abdomen, Pelvis Computed Tomogra phy 08/27/2022 3:40 PM EDT Mack Ibrahim MD IMG CT PROCEDURES Final Resu lt documented in this encounter Visit Diagnoses Not on filedocumented in this encounter Care Teams Cupola Tender Helper Relationship Specialty Start Date End Date Nolberto Streeter MD [address] [place] [address] [address] [place], [place] [id number] PCP - General 09/28/22 Aniya Kathleen MD [address] [address] Consulting Physician Radiation Therapy 08/05/23 documented as of this encounter
--- OUTSIDE RECORDS SUMMARY | 2024-12-25 14:39 | XMS_ITS | Encounter Summary ---
Author Organization [facility] Address [address] [place] [address] Care Team Providers Care Lokie Engineer Name Role Phone Nolberto Streeter MD Primary Care Provider [phone] Aniya Kathleen MD Unavailable [phone] Encounter Details Date Type Department Care Team (Latest Contact Info) Description 12/04/2024 Travel Social History Tobacco Use Types Packs/Day [...] Gynecology [address] [place] [address] Anne Garland MD [address] [place] [address] 06/07/2025 9:15 AM EST Office Visit [facility] [address] [place] [address] Triston Velasquez MD [address] [facility] [address] [place] [address] 06/28/2025 9:30 AM EST Appointment [facility] [address] [place] [address] Aniya Kathleen MD 800 [facility] [address] [place] [address] documented as of this encounter Visit Diagnoses Not on filedocumented in this encounter Additional Health Concerns Assessment Noted Time A fall risk assessment has been complete d for the patient 12/04/2024 8:31 AM EDT A Body Mass Index follow-up plan has been documented for the patient 12/04/2024 9:30 AM EDT documented as of this encounter Care Teams Lokie Engineer Relationship Specialty Start Date End Date Nolberto Streeter MD [address] [place] [address] [address] [place] [address] PCP - General 09/28/22 Aniya Kathleen MD [address] [place], [place] 852534D [place] [address] Consulting Physician Radiation Therapy 08/05/23 documented as of this encounter
--- OUTSIDE RECORDS SUMMARY | 2024-12-25 14:39 | XMS_ITS | Encounter Summary ---
Author Organization [facility] Address [address] [place] [address] Care Team Providers Care Founder Name Role Phone Nolberto Streeter MD Primary Care Provider [phone] Aniya Kathleen MD Unavailable [phone] Encounter Details Date Type Department Care Team (Late st Contact Info) Description 09/28/2022 Lab Requisition [facility] [address] [place] [address] Heriberto Gupta MD [address] [facility] [address] [place] [address] Malignant neoplasm of colon, unspecified (CMS/HCC) Social History Tobacco Use Types Packs/Day Years Used Date Smoking Tobacco: Never Smokeless Tobacco: Never PHQ-2 Answer Date Recorded Patient Health Questionnaire-2 Score 0 09/29/2022 Comments Unknown Sex and Gender Information Value Date Recorded Sex Assigned at Female 10/27/2022 8:11 AM EDT Legal Sex Female 3:50 PM EDT Gender Identity Female 10/27/2022 8:11 AM EDT Sexual Orientation Not on file documented as of this encounter Functional Status * Over the past 2 weeks, how often have you been bothered by any of the following problems? Question Answer Date of Assessment Author Little interest or pleasure in doing things Not at all 09/29/2022 12:27 PM EDT Terrell, Frederic K Feeling down, depressed, or hopeless Not at all 09/07 12:27 PM EDT Frederic Tejada Patient Health Questionnaire-2 Score 0 09/07 12:27 PM EDT Frederic Tejada documented as of this encounter Plan of Treatment Upcoming Encounters Date Type Department Care Team (Late st Contact Info) Description 03/15/2025 8:00 AM EST Office Visit [facility] [address] [place] [address] Anne Garland MD [address] [place] [address] 06/07/2025 9:15 AM EST Office Visit [facility] [address] [place] [address] Triston Velasquez MD [address] [place] [address] 06/28/2025 9:30 AM EST Appointment [facility] [id number] [place] [address] Aniya Kathleen MD [address] [place] [address] documented as of this encounter Procedures Procedure Name Priority Date/Time Associated Diagnosis Comments SURGICAL PATHOLOGY CONSULT Routine 09/28/2022 1:02 PM EDT Malignant neoplasm of colon, unspecified (CMS/HCC) documented in this encounter Results * Surgical Pathology Consult (09/28/2022 1:02 PM EDT) Case Report Sugical Pathology Consult Case: [id number] Authorizing Provider: Heriberto Gupta MD Collected: 09/28/2022 1302 Ordering Location: [facility] Received: 09/28/2022 1302 Pathologist: Jose Antonio Victor MD Specimen: Colon, [id number] 10/06/2022 6:56 PM EDT [facility] Final Diagnosis ASCENDING COLON, MASS, BIOPSY (OUTSIDE: [id number]; COLLECTION: 08/27/2022): - TUBULAR ADENOMA; LOW GRADE DYSPLASIA ONLY (SEE COMMENT) 10/06/2022 6:56 PM EDT [facility] at 1856 EDT Comment The apparent impression of a mass lesion is noted. Sections reveal the presence of low grade dysplasia, harboring some villous features which may indicate an advanced polyp, but no evidence of high grade dysplasia or carcinoma. Given this discordance, the specimen may not be entirely appeals representative of the targeted lesion. 10/06/2022 6:56 PM EDT [facility] Clinical Information C18.9 - Malignant neoplasm of colon, unspecified [ICD-10-CM] 10/06/2022 6:56 PM EDT [facility] Gross Description A. [id number] Received along with a corresponding pathology report from [facility] are 1 slide labeled outside case: [id number] collected on 08/27/2022. 10/06/2022 6:56 PM EDT [facility] Note: A resident was involved in the service. I attest I examined the relevant preparations for the specimens and confirmed the diagnosis or interpretation. 10/06/2022 6:56 PM EDT [facility] Tissue Colon structure / Unknown 09/28/2022 1:02 PM EDT 09/28/2022 1:02 PM EDT us Heriberto Gupta MD LAB PATHOLOGY ORDERABLES Final Result [facility] [address] [place] [address] documented in this encounter Visit Diagnoses Diagnosis Malignant neoplasm of colon, unspecified (CMS/HCC) documented in this encounter Additional Health Concerns Assessment Noted Time A fall risk assessment has been complete d for the patient 09/28/2022 8:00 AM EDT A Body Mass Index follow-up plan has been documented for the patient 10/05/2022 9:28 AM EDT documented as of this encounter Care Teams Founder Relationship Specialty Start Date End Date Nolberto Streeter MD [address] [place] [address] [address] [place] [address] PCP - General 09/28/22 Aniya Kathleen MD [address] [place] [address] [address] [place] [address] Consulting Physician Radiation Therapy 08/05/23 documented as of this encounter
== END 2024-12-25 23:59 | disposition home or self-care (01) ==
LOC: RAD 14:36
PROVIDERS: PCP Family Medicine; Visit Provider Family Medicine
DX: R93.7 Abnormal findings on diagnostic imaging of other parts of musculoskeletal system (principal); R07.81 Pleurodynia
CPT/HCPCS: 71101

== ENCOUNTER 2024-12-29 06:49 | Emergency (ER) | payer MEDICARE, SELFPAY ==
--- OUTSIDE RECORDS SUMMARY | 2024-12-04 08:05 | XMS_ITS | Encounter Summary ---
Author Organization [facility] Address [address] [place] [address] Care Team Providers Care Unleavened Dough Mixer Name Role Phone Nolberto Streeter MD Primary Care Provider [phone] Aniya Kathleen MD Unavailable [phone] Encounter Details Date Type Department Care Team (Late st Contact Info) Description 12/04/2024 8:05 AM EDT Ancillary Procedure [facility] [address] [place] [address] Social History Tobacco Use Types Packs/Day [...] Care Team (Late st Contact Info) Description 03/15/2025 8:00 AM EST Office Visit [facility] [address] [place] [address] Anne Garland MD [address] [place] [address] 06/07/2025 9:15 AM EST Office Visit [facility] [address] [place] [address] Triston Velasquez MD [address] [place] [address] 06/28/2025 9:30 AM EST Appointment [facility] [id number] [place] [address] Aniya Kathleen MD [address] [place] [address] documented as of this encounter [...] documented as of this encounter Care Teams Unleavened Dough Mixer Relationship Specialty Start Date End Date Nolberto Streeter MD [address] [facility] [address] [place] [address] PCP - General 09/28/22 Aniya Kathleen MD 800 [facility] [address] [place] [address] Consulting Physician Radiation Therapy 08/05/23 documented as of this encounter
--- OUTSIDE RECORDS SUMMARY | 2024-12-04 08:15 | XMS_ITS | Encounter Summary ---
Author Organization [facility] Address [address] [place] [address] Care Team Providers Care Vamp Stitcher Name Role Phone Nolberto Streeter MD Primary Care Provider [phone] Aniya Kathleen MD Unavailable [phone] Reason for Visit * Reason Comments At high risk for open angle glaucoma of both eyes Encounter Details Date Type Department Care Team (Late st Contact Info) Description 12/04/2024 8:15 AM EDT Office Visit [facility] [address] [place] [address] Triston Velasquez MD [address] [address] At high risk for open angle glaucoma of both eyes (Primary Dx); Pseudophakia of both eyes Social History Tobacco Use Types Packs/Day Years [...] on file documented as of this encounter Miscellaneous Notes * Progress Notes - Triston Velasquez MD - 12/04/2024 8:15 AM EDT Subjective Chief Complaint At high risk for open angle glaucoma of both eyes HPI 73 y o f presents to the clinic today for a 4 month follow up for At high risk for open angle glaucoma of both eyes and Pseudophakia of both eyes. Patient is using white top four times daily both eyes . Patient denies any vision changes, denies any pain/redness/pressure both eyes . Last edited by Sonya Swift on 12/04/2024 8:34 AM. ROS Positive for: Eyes (see hpi) Negative for: Constitutional, Gastrointestinal, Neurological, Skin, Genitourinary, Musculoskeletal,HENT, Endocrine, Cardiovascular, Respiratory, Psychiatric, Allergic/Imm, Heme/Lymph Last edited by Sonya Swift on 12/04/2024 8:33 AM. Objective Base Eye Exam Visual Acuity (Snellen - Linear) Right Left Dist sc 20/20-1 20/20 Near sc J7 -2 J7 -2 Tonometry (Tonopen, 8:38 AM) Right Left Pressure 14 14 Pupils Pupils Right PERRL Left PERRL Neuro/Psych Oriented x3: Yes Mood/Affect: Normal Assessment/Plan Assessment & Plan At high risk for open angle glaucoma of both eyes Orders: OCT, Optic Nerve - OU - Both Eyes Pseudophakia of both eyes Cpm as IOPs/rnfl stable ou; new Rx issued Rtc 6 mos oct rnfl ou Pt squeezes ou documented in this encounter Plan of Treatment Upcoming Encounters Date Type Department Care Team (Late st Contact Info) Description 03/15/2025 8:00 AM EST Office Visit [facility] [address] [place] [address] Anne Garland MD [address] [place] [address] 06/07/2025 9:15 AM EST Office Visit [facility] [address] [place] [address] Triston Velasquez MD [address] [place] [address] 06/28/2025 9:30 AM EST Appointment [facility] [id number] [place] [address] Aniya Kathleen MD [address] [place] [address] documented as of this encounter [...] Result documented in this encounter Visit Diagnoses Diagnosis At high risk for open angle glaucoma of both eyes- Primary Pseudophakia of both eyes Lens replaced by other means documented in this encounter Additional Health Concerns Assessment Noted Time A fall risk assessment has been complete d for the patient 12/04/2024 8:31 AM EDT A Body Mass Index follow-up plan has been documented for the patient 12/04/2024 9:30 AM EDT documented as of this encounter Care Teams Vamp Stitcher Relationship Specialty Start Date End Date Nolberto Streeter MD 430 [facility] [address] [place] [address] PCP - General 09/28/22 Aniya Kathleen MD [address] [place] [address] [address] [place] [address] Consulting Physician Radiation Therapy 08/05/23 documented as of this encounter
--- OUTSIDE RECORDS SUMMARY | 2024-12-07 08:29 | XMS_ITS | Encounter Summary ---
Author Organization [facility] Address [address] [place] [address] Care Team Providers Care Real Estate Listing Consultant Name Role Phone Nolberto Streeter MD Primary Care Provider [phone] Aniya Kathleen MD Unavailable [phone] Reason for Visit * Reason Comments Follow-up Encounter Details Date Type Department Care Team (Latest Contact Info) Description 12/07/2024 8:29 AM EDT - 12/07/2024 11:59 PM EDT Hospital Encounter [facility] [id number] [place] [address] Aniya Kathleen MD [address] [place] [address] Malignant neoplasm of overlapping sites [...] vaginla discharge and was seen by a brim plater that, in the pelvic exam identified a [...] four extremities. No edema. Pelvic: Performed with egg caser. normal external genitalia, vagina shows possible post-radiation [...] [address] [place] [address] Anne Garland MD [address] [facility] [address] [place] [address] 06/07/2025 9:15 AM EST Office Visit [facility] [address] [place] [address] Triston Velasquez MD [address] [facility] [address] [place] [address] 06/28/2025 9:30 AM EST Appointment [facility] [id number] [place] [address] Aniya Kathleen MD [address] [place] [address] documented as of this encounter Visit Diagnoses [...] documented as of this encounter Care Teams Real Estate Listing Consultant Relationship Specialty Start Date End Date Nolberto Streeter MD 430 [facility] [address] [place] [address] PCP - General 09/28/22 Aniya Kathleen MD [address] [address] Consulting Physician Radiation Therapy 08/05/23 documented as of this encounter
[2024-12-29] VITALS (11 sets, daily range): BP systolic 144–167; BP diastolic 49–103; PULSE 77–88; RESP 16–19; TEMP 36.6–36.9; O2SAT 98–100; BMI 29.0
--- NOTE | 2024-12-29 07:01 | ECG_ITS ---
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
--- OUTSIDE RECORDS SUMMARY | 2024-12-29 07:08 | XMS_ITS | Encounter Summary ---
Author Organization [facility] Address [address] [place] [address] Care Team Providers Care Seasonal Recruiter Name Role Phone Nolberto Streeter MD Primary Care Provider [phone] Aniya Kathleen MD Unavailable [phone] Encounter Details Date Type Department Care Team (Late st Contact Info) Description 09/30/2022 Lab Requisition [facility] [address] [place] [address] Anne Garland MD 800 [facility] [address] [place] [address] Other specified noninflammatory disorders of uterus Social [...] [address] [address] Anne Garland MD [address] [place] [address] 06/07/2025 9:15 AM EST Office Visit [facility] [address] [place] [address] Triston Velasquez MD 110 [facility] [address] [place] [address] 06/28/2025 9:30 AM EST Appointment [facility] Radiation [id number] [place] [address] Aniya Kathleen MD [address] [place] [address] documented as of this encounter Procedures Procedure Name Priority Date/Time Associated Diagnosis Comments SURGICAL PATHOLOGY CONSULT Routine 09/30/2022 10:59 AM EDT Other specified noninflammatory disorders of uterus documented in this encounter Results * Surgical Pathology Consult (09/30/2022 10:59 AM EDT) Case Report Sugical Pathology Consult Case: [id number] Authorizing Provider: Anne Garland MD Collected: 09/30/2022 1059 Ordering Location: [facility] Lab Received: 09/30/2022 1059 Pathologist: Xiomara Almonte MD Specimen: Cervix, [id number] 10/05/2022 3:42 PM EDT [facility] Final Diagnosis A. CERVIX, BIOPSY (OUTSIDE SLIDES [id number], 09/16/22): - AT LEAST ENDOCERVICAL ADENOCARCINOMA IN SITU; NO DEFINITE INVASION IDENTIFIED 10/05/2022 3:42 PM EDT [facility] at 1542 EDT Comment The tumor is morphologically similar to the subsequent biopsy [id number]. Please refer to that report for the immunohistochemical results. 10/05/2022 3:42 PM ED[address] [facility] Clinical Information N85.8 - Other specified noninflammatory disorders of uterus [ICD-10-CM] 10/05/2022 3:42 PM EDT [facility] Gross Description A. [id number] Received along with a corresponding pathology report from [facility] is 1 slide labeled outside case: [id number] collected on 09/16/2022. 10/05/2022 3:42 PM EDT [facility] Note: A resident was involved in the service. I attest I examined the relevant preparations for the specimens and confirmed the diagnosis or interpretation. 10/05/2022 3:42 PM EDT [facility] Tissue Cervix uteri structure / Unknown 09/30/2022 10:59 AM EDT 09/30/2022 10:59 AM EDT Anne Garland MD LAB PATHOLOGY ORDERABLES Final Result [facility] [address] [place] [address] documented in this encounter Visit Diagnoses Diagnosis Other specified noninflammatory disorders of uterus documented in this encounter Additional Health Concerns Assessment Noted Time A fall risk assessment has been complete d for the patient 09/29/2022 12:27 PM EDT A Body Mass Index follow-up plan has been documented for the patient 10/05/2022 9:28 AM EDT documented as of this encounter Care Teams Seasonal Recruiter Relationship Specialty Start Date End Date Nolberto Streeter MD [address] [place] [address] [address] [place] [address] PCP - General 09/28/22 Aniya Kathleen MD [address] [place] [address] [address] [place] [address] Consulting Physician Radiation Therapy 08/05/23 documented as of this encounter
--- OUTSIDE RECORDS SUMMARY | 2024-12-29 07:08 | XMS_ITS | Encounter Summary ---
Author Organization [facility] Address [address] [place] [address] Care Team Providers Care Jewelry Sales Associate Name Role Phone Nolberto Streeter MD Primary Care Provider [phone] Aniya Kathleen MD Unavailable [phone] Encounter Details Date Type Department Care Team (Late st Contact Info) Description 08/27/2022 Orders Only External Location [address] [place] [address] Mack Ibrahim MD [address] [place], [place] [id number] Social History Tobacco Use Types Packs/Day Years [...] Gynecology [address] [place] [address] Anne Garland MD [address] [place] [address] 06/07/2025 9:15 AM EST Office Visit [facility] [address] [place] [address] Triston Velasquez MD [address] [facility] [address] [place] [address] 06/28/2025 9:30 AM EST Appointment [facility] Radiation 800 [facility]. [id number] [place] [address] Aniya Kathleen MD [address] [address] documented as of this encounter [...] on filedocumented in this encounter Care Teams Jewelry Sales Associate Relationship Specialty Start Date End Date Nolberto Streeter MD [address] [place] [address] [address] [place], [place] [id number] PCP - General 09/28/22 Aniya Kathleen MD [address] [address] Consulting Physician Radiation Therapy 08/05/23 documented as of this encounter
--- OUTSIDE RECORDS SUMMARY | 2024-12-29 07:08 | XMS_ITS | Encounter Summary ---
Author Organization [facility] Address [address] [place] [address] Care Team Providers Care Wet And Dry Sugar Bin Operator Name Role Phone Nolberto Streeter MD Primary Care Provider [phone] Aniya Kathleen MD Unavailable [phone] Encounter Details Date Type Department Care [...] Gynecology [address] [place] [address] Anne Garland MD [address] [place] [address] 06/07/2025 9:15 AM EST Office Visit [facility] [address] [place] [address] Triston Velasquez MD 110 [address] [facility] [address] [place] [address] 06/28/2025 9:30 AM EST Appointment [facility] Radiation [id number] [place] [address] Aniya Kathleen MD 800 [facility] [address] [place] [address] documented as of this encounter Visit Diagnoses Not on filedocumented in this encounter Additional Health Concerns Assessment Noted Time A fall risk assessment has been complete d for the patient 12/04/2024 8:31 AM EDT A Body Mass Index follow-up plan has been documented for the patient 12/04/2024 9:30 AM EDT documented as of this encounter Care Teams Wet And Dry Sugar Bin Operator Relationship Specialty Start Date End Date Nolberto Streeter MD [address] [place] [address] [address] [place] [address] PCP - General 09/28/22 Aniya Kathleen MD [address] [place], [place] 56[address]64D [place] [address] Consulting Physician Radiation Therapy 08/05/23 documented as of this encounter
--- OUTSIDE RECORDS SUMMARY | 2024-12-29 07:08 | XMS_ITS | Encounter Summary ---
Author Organization [facility] Address [address] [place] [address] Care Team Providers Care Supervising Nurse Name Role Phone Nolberto Streeter MD Primary Care Provider [phone] Aniya Kathleen MD Unavailable [phone] Encounter Details Date Type Department Care Team (Late st Contact Info) Description 09/28/2022 Lab Requisition [facility] [address] [place] [address] Heriberto Gupta MD [address] [facility] [address] [place] [address] Malignant neoplasm of colon, unspecified (CMS/HCC) Social [...] [address] [place] [address] Anne Garland MD [address] [place] [address] 06/07/2025 9:15 AM EST Office Visit [facility] [address] [place] [address] Triston Velasquez MD [address] [place] [address] 06/28/2025 9:30 AM EST Appointment [facility] Radiation [id number] [place] [address] Aniya Kathleen MD [address] [place] [address] documented as of this encounter Procedures Procedure Name Priority Date/Time Associated Diagnosis Comments SURGICAL PATHOLOGY CONSULT Routine 09/28/2022 1:02 PM EDT Malignant neoplasm of colon, unspecified (CMS/HCC) documented in this encounter Results * Surgical Pathology Consult (09/28/2022 1:02 PM EDT) Case Report Sugical Pathology Consult Case: [id number] Authorizing Provider: Heriberto Gupta MD Collected: 09/28/2022 1302 Ordering Location: [facility] Lab Received: 09/28/2022 1302 Pathologist: Jose Antonio Victor MD Specimen: Colon, [id number] 10/06/2022 6:56 PM EDT [facility] Final Diagnosis ASCENDING COLON, MASS, BIOPSY (OUTSIDE: [id number]; COLLECTION: 08/27/2022): - TUBULAR ADENOMA; LOW GRADE DYSPLASIA ONLY (SEE COMMENT) 10/06/2022 6:56 PM EDT [facility] at 1856 EDT Comment The apparent impression of a mass lesion is noted. Sections reveal the presence of low grade dysplasia, harboring some villous features which may indicate an advanced polyp, but no evidence of high grade dysplasia or carcinoma. Given this discordance, the specimen may not be entirely administrative representative of the targeted lesion. 10/06/2022 6:56 PM EDT [facility] Clinical Information C18.9 - Malignant neoplasm of colon, unspecified [ICD-10-CM] 10/06/2022 6:56 PM EDT [facility] Gross Description A. [id number] Received along with a corresponding pathology report from [facility] are 1 slide labeled outside case: [id number] collected on 08/27/2022. 10/06/2022 6:56 PM EDT [facility] Note: A resident was involved in the service. I attest I examined the relevant preparations for the specimens and confirmed the diagnosis or interpretation. 10/06/2022 6:56 PM EDT [facility] Tissue Colon structure / Unknown 09/28/2022 1:02 PM EDT 09/28/2022 1:02 PM EDT us Heriberto Gupta MD LAB PATHOLOGY ORDERABLES Final Result [facility] [address] [place] [address] documented in this encounter Visit Diagnoses Diagnosis Malignant neoplasm of colon, unspecified (CMS/HCC) documented in this encounter Additional Health Concerns Assessment Noted Time A fall risk assessment has been complete d for the patient 09/28/2022 8:00 AM EDT A Body Mass Index follow-up plan has been documented for the patient 10/05/2022 9:28 AM EDT documented as of this encounter Care Teams Supervising Nurse Relationship Specialty Start Date End Date Nolberto Streeter MD [address] [place] [address] [address] [place] [address] PCP - General 09/28/22 Aniya Kathleen MD [address] [place] [address] [address] [place] [address] Consulting Physician Radiation Therapy 08/05/23 documented as of this encounter
--- OUTSIDE RECORDS SUMMARY | 2024-12-29 07:09 | XMS_ITS | Clinical Summary ---
Author Organization [facility] Address [address] [place] [address] Care Team Providers Care Warehouse Supervisor Name Role Phone Nolberto Streeter MD Primary Care Provider [phone] Aniya Kathleen MD Unavailable [phone] Allergies Active Allergy Reactions Criticality Noted Date [...] (10/05/2022): Added automatically from request for surgery [id number] Resolved Problems Problem Noted Date Diagnosed Date Resolved Date Malignant neoplasm of cervix , unspecified site 12/09/2022 12/10/2022 Malignant neoplasm of ascending colon 09/29/2022 11/30/2022 Encounters Date Type Department Care Team Description 12/07/2024 8:29 AM EDT - 12/07/2024 11:59 PM EDT Hospital Encounter [facility] Radiation 800 [facility]. [id number] [place] [address] Aniya Kathleen MD Malignant neoplasm of overlapping sites of cervix (CMS/HCC) (Primary Dx) Discharge Disposition: Still a Patient 12/07/2024 Travel 12/04/2024 8:15 AM EDT Office Visit [facility] [address] [place] [address] Triston Velasquez MD At high risk for open angle glaucoma of both eyes (Primary Dx); Pseudophakia of both eyes 12/04/2024 8:05 AM EDT Ancillary Procedure [facility] [address] [place] [address] 12/04/2024 Telephone [facility]iation [id number] [place] [address] Aniya Kathleen MD 12/04/2024 Travel [...] [address] [place] [address] Anne Garland MD [address] [place] [address] 06/07/2025 9:15 AM EST Office Visit [facility] [address] [place] [address] Triston Velasquez MD [address] [place] [address] 06/28/2025 9:30 AM EST Appointment [facility] [id number] [place] [address] Aniya Kathleen MD [address] [place] [address] Health Maintenance Due Date Last Done Comments [facility]-Bone Density Scan 1948 [facility]-Hepatitis C Screening 1950 [facility]-Medicare Annual Wellness (AWV) 1948 [facility]-Infant/Child/Adol SDOH Screenings 1948 [facility]- SDOH Screenings 1966 [facility]-Adult SDOH Screenings 1966 [facility]-Pneumococcal Vaccine: 50+ Years (1 of 2 - PCV) 12/14/1967 [facility]-Zoster Vaccines (1 of 2) 12/14/1967 [facility]-RSV Vaccine: 60+ Years or (1 - 1-dose 75+ series) 12/14/2023 [id number]-[id number] Vaccine (8 - Moderna risk 2023- season) [...] Final Result from Last [address] [facility] MEDICARE Advance Directives * Full Code (Latest Code Status on File) Date Activated Date Inactivated Comments 10/27/2022 11:51 AM 10/30/2022 2:28 PM Question Answer Comments Patient has decision-making capacity? Yes Care Teams Warehouse Supervisor Relationship Specialty Start Date End Date Nolberto Streeter MD [address] [place] [address] [address] [place] [address] PCP - General 09/28/22 Aniya Kathleen MD [address] [place] [address] [address] [place] [address] Consulting Physician Radiation Therapy 08/05/23
--- OUTSIDE RECORDS SUMMARY | 2024-12-29 07:09 | XMS_ITS ---
Author Organization [facility] Address [address] [place] [address] Care Team Providers Care Rn Social Work Name Role Phone Nolberto Streeter MD Primary Care Provider Aniya Kathleen MD Unavailable [phone] Active Problems Problem Noted Date Diagnosed Date Primary hypertension 12/06/2022 Malignant neoplasm of overlapping sites of cervi x 11/30/2022 Cancer Staging:Clinical:FIGO Stage IIA2(cT2a2, cN0, cM0) - Signed by Anne Garland MD on 12/06/2022 Adenomatous polyp of ascending colon 10/05/2022 Overview (10/05/2022): Added automatically from request for surgery [id number] Current Treatment and Therapy Plans No current [...] Fraction Dose Fractions Total Dose Plans Planned [id number] 12/29/2022 - 02/07/2023 220 cGy 5 ,500 cGy Reference Points Delivered PTV_55Gy 12/29/2022 - 02/07/2023 5,500 cGy Resolved Problems Problem Noted Date Diagnosed Date Resolved Date Malignant neoplasm of cervix , unspecified site 12/09/2022 12/10/2022 Malignant neoplasm of ascending colon 09/29/2022 11/30/2022
--- OUTSIDE RECORDS SUMMARY | 2024-12-29 07:09 | XMS_ITS | Encounter Summary ---
Author Organization [facility] Address [address] [place] [address] Care Team Providers Care Supply Crib Attendant Name Role Phone Nolberto Streeter MD Primary Care Provider [phone] Aniya Kathleen MD Unavailable [phone] Encounter Details Date Type Department Care Team (Late st Contact Info) Description 12/04/2024 Telephone [facility] [id number] [place] [address] Aniya Kathleen MD [address] [place] [address] Social History Tobacco Use Types Packs/Day Years [...] [address] [place] [address] Anne Garland MD 800 [facility] [address] [facility] [address] [place] [address] 06/07/2025 9:15 AM EST Office Visit [facility] [address] [place] [address] Triston Velasquez MD 110 [facility] [address] [place] [address] 06/28/2025 9:30 AM EST Appointment [facility] Radiation 800 [id number] [place] [address] Aniya Kathleen MD 800 [facility] [address] [place] [address] documented as of this encounter Visit Diagnoses Not on filedocumented in this encounter Additional Health Concerns Assessment Noted Time A fall risk assessment has been complete d for the patient 12/04/2024 8:31 AM EDT A Body Mass Index follow-up plan has been documented for the patient 12/04/2024 9:30 AM EDT documented as of this encounter Care Teams Supply Crib Attendant Relationship Specialty Start Date End Date Nolberto Streeter MD [address] [place] [address] [address] [place] [address] PCP - General 09/28/22 Aniya Kathleen MD [address] [place] [address] Consulting Physician Radiation Therapy 08/05/23 documented as of this encounter
--- OUTSIDE RECORDS SUMMARY | 2024-12-29 07:09 | XMS_ITS | Encounter Summary ---
Author Organization [facility] Address [address] [place] [address] Care Team Providers Care Flatwork Supervisor Name Role Phone Nolberto Streeter MD Primary Care Provider [phone] Aniya Kathleen MD Unavailable [phone] Encounter Details Date Type Department Care [...] Gynecology [address] [place] [address] Anne Garland MD [address] [place] [address] 06/07/2025 9:15 AM EST Office Visit [facility] [address] [place] [address] Triston Velasquez MD [address] [facility] [address] [place] [address] 06/28/2025 9:30 AM EST Appointment [facility] [id number] [place] [address] Aniya Kathleen MD 800 [facility] [address] [place] [address] documented as of this encounter Visit Diagnoses Not on filedocumented in this encounter Additional Health Concerns Assessment Noted Time A fall risk assessment has been complete d for the patient 12/07/2024 8:48 AM EDT A Body Mass Index follow-up plan has been documented for the patient 12/04/2024 9:30 AM EDT documented as of this encounter Care Teams Flatwork Supervisor Relationship Specialty Start Date End Date Nolberto Streeter MD [address] [place] [address] [address] [place] [address] PCP - General 09/28/22 Aniya Kathleen MD [address] [place], [place] 275[address]D [place] [address] Consulting Physician Radiation Therapy 08/05/23 documented as of this encounter
--- NOTE | 2024-12-29 07:11 | CT_ITS ---
PROCEDURE INFORMATION: Exam: CT Head Without Contrast Exam date and time: 12/29/2024 7:24 AM Age: 74 years old Clinical indication: Injury or trauma; Fall; Blunt trauma (contusions or hematomas); Additional info: Fall, on aspirin, hit head TECHNIQUE: Imaging protocol: Computed tomography of the head without contrast. Radiation optimization: All CT scans at this facility use at least one of these dose optimization techniques: automated exposure control; mA and/or kV adjustment per patient size (includes targeted exams where dose is matched to clinical indication); or iterative reconstruction. COMPARISON: US THYROID 03/11/2023 10:03 AM FINDINGS: Brain: 3.7 mm hyperdensity in the left frontal lobe may be within a sulcus series 3, image 36, 37. This may represent small amount of subarachnoid hemorrhage.. There is mild diffuse heterogeneity of the white matter attenuation, consistent with chronic white matter ischemic changes. Mild cerebral atrophy Cerebral ventricles: No ventriculomegaly. Paranasal sinuses: Visualized sinuses are unremarkable. No fluid levels. Mastoid air cells: Visualized mastoid air cells are well aerated. Bones: Unremarkable. No acute fracture. Soft tissues: Unremarkable. IMPRESSION: 3.7 mm hyperdensity in the left frontal lobe may be within a sulcus series 3, image 36, 37. This may represent small amount of subarachnoid hemorrhage.. THIS REPORT CONTAINS FINDINGS THAT MAY BE CRITICAL TO PATIENT CARE. The findings were verbally communicated via telephone conference with Marco Antonio Case at 8:20 AM EDT on 12/29/2024. The findings were acknowledged and understood.
--- NOTE | 2024-12-29 07:11 | XR_ITS ---
PROCEDURE INFORMATION: Exam: XR Chest Exam date and time: 12/29/2024 7:29 AM Age: 74 years old Clinical indication: Injury or trauma; Fall; Blunt trauma (contusions or hematomas); Additional info: Fall, has known left rib frx TECHNIQUE: Imaging protocol: Radiologic exam of the chest. Views: 1 view. COMPARISON: CR XR RIBS LT MIN 3V W CXR1V 12/25/2024 2:40 PM FINDINGS: Lungs: Unremarkable. No consolidation. Pleural spaces: Unremarkable. No pleural effusion. No pneumothorax. Heart/Mediastinum: Unremarkable. No cardiomegaly. Bones/joints: The left 10th rib fracture suggested on prior imaging is not appreciated on the current exam. There are chronic degenerative changes at each shoulder. IMPRESSION: No radiographic evidence of acute cardiopulmonary disease.
--- NOTE | 2024-12-29 07:11 | CT_ITS ---
PROCEDURE INFORMATION: Exam: CT Cervical Spine Without Contrast Exam date and time: 12/29/2024 7:27 AM Age: 74 years old Clinical indication: Injury or trauma; Fall; Blunt trauma; Additional info: Fall, hit head, on blood thinners TECHNIQUE: Imaging protocol: Computed tomography of the cervical spine without contrast. Radiation optimization: All CT scans at this facility use at least one of these dose optimization techniques: automated exposure control; mA and/or kV adjustment per patient size (includes targeted exams where dose is matched to clinical indication); or iterative reconstruction. COMPARISON: CT HEAD/BRAIN WO CON 12/29/2024 7:24 AM FINDINGS: Bones: No acute fracture of the cervical spine. No subluxation or dislocation of the cervical spine. Intervertebral disc space narrowing C5 through C7 may represent degenerative disc disease.. Anterior osteophyte formation C5 through C7. Posterior osteophyte formation C5 through C7. Degenerative changes in the facets at multiple levels. Degenerative changes at C1/C2 Paranasal sinuses: Air-fluid level in the left sphenoid sinus may represent acute sinusitis or hemorrhage Lungs: Lung apices are normal. Thyroid: The thyroid is heterogeneous with calcifications. 2.3 cm nodule right lobe of the thyroid Soft tissues: Unremarkable. IMPRESSION: 1. No acute fracture of the cervical spine. 2. No subluxation or dislocation of the cervical spine. 3. Intervertebral disc space narrowing C5 through C7 may represent degenerative disc disease.. 4 2.3 cm nodule right lobe of the thyroid. Recommend thyroid ultrasound
--- NOTE | 2024-12-29 07:11 | XR_ITS ---
PROCEDURE INFORMATION: Exam: XR Pelvis Exam date and time: 12/29/2024 7:29 AM Age: 74 years old Clinical indication: Injury or trauma; Fall; Blunt trauma (contusions or hematomas); Bilateral; Pelvic region TECHNIQUE: Imaging protocol: Radiologic exam of the pelvis. Views: 1 or 2 view. COMPARISON: CT ABDOMEN PELVIS W CON 09/30/2022 1:06 PM FINDINGS: Bones/joints: No evidence of a pelvic fracture or hip fracture on either side. There are chronic degenerative changes in the lower lumbar spine. There are chronic degenerative changes at each hip. There are sclerotic changes of the pubic symphysis. Soft tissues: Unremarkable. IMPRESSION: Chronic degenerative changes but no evidence of a hip fracture or pelvic fracture.
--- NOTE | 2024-12-29 07:15 | ED_ITS ---
Discharge Plan Disposition Patient Disposition: Still a Patient Condition: Good Prescriptions Prescriptions: No Action multivitamin [Daily Multi-Vitamin] Tablet 1 tab PO DAILY amlodipine 5 mg tablet PO DAILY Patient Comments: TAKE 1 TABLET BY MOUTH ONCE DAILY dorzolamide-timolol 22.3-6.8 mg/mL drops Eye-Both ONCE Patient Comments: INSTILL 1 DROP INTO EACH EYE TWICE DAILY hydrochlorothiazide 12.5 mg tablet PO DAILY Patient Comments: TAKE 1 TABLET BY MOUTH ONCE DAILY IN THE MORNING atorvastatin 20 mg Tablet 20 mg PO HS aspirin 81 mg Capsule 81 mg PO DAILY Referrals Follow up/Referrals: Tashi Streeter MD [Primary Care Provider, Medical] - See instructions Clinical Impressions Clinical Impression: SAH (subarachnoid hemorrhage) Print Language Print Language: Korean Discharge ED Provider: Marco Antonio Case JR General Adult HPI General Chief complaint: Fall Stated complaint: fall 299, broken rib past fall, low bp, confusion Time Seen by Provider: 12/29/24 07:03 Mode of Arrival: Ambulatory Source of Information: Patient and Relative Limitations: No Limitations Description of Symptoms (Recalled from ER Triage Doc. by RN): PT brought to the ED for evaluation of confusion post fall. Son stated Pt fell around 0300 and was dazed and confused . Pt remembers falling and stated she tripped over her flipflops, son stated she had on socks with flip flops. Pt denies pain. PT has a dx of a broke rib from a fall 2 weeks ago. Pt has Hypertension dx. History of Present Illness HPI narrative: 74 year old female patient with hx of recent fall 2 weeks resulting in left rib fracture, HTN, hyperlipidemia, hx of colon cancer presents to the Emergency Department after mechanical fall at home. Patient was walking around wearing flip flops at home when she excellently tripped and fell. Ground-level fall. No loss consciousness. Patient did fall and hit her head. She has no acute complaints this time. She is able to walk without difficulty and is tolerating p.o. intake. She denies headache, neck pain, chest pain, pelvic pain. Able to move all 4 extremities without difficulty. On daily aspirin. No further complaints at this time. Acting appropriately per family. Onset (ago): hour(s) (Fall 1 hour ago) Related Data Home Medications ?Medication ?Instructions ?Recorded ?Confirmed aspirin 81 mg capsule 81 mg PO DAILY heart [facility] 08/27/22 07/03/24 atorvastatin 20 mg tablet 20 mg PO HS High cholesterol 08/27/22 07/03/24 multivitamin (Daily Multi-Vitamin 1 tab PO DAILY 07/0307/03/24 tablet) amlodipine 5 mg tablet mg PO DAILY 12/25/24 5 dorzolamide 22.3 mg-timolol 6.8 Eye-Both ONCE 12/25/24 12/25/24 mg/mL eye drops hydrochlorothiazide 12.5 mg tablet mg PO DAILY 5 12/25/24 Allergies Allergy/AdvReac Type Severity Reaction Status Date / Time hydrochlorothiazide Allergy Unknown SYNCOPE Verified 12/25/24 13:38 (HYDROCHLOROTHIAZIDE) [facility] Disclaimer: The information contained in this section may have been updated after the patient was seen, as this information can be updated by other users. Medical History Impacted cerumen of both ears Hearing loss COVID-19 Colon cancer Cervical cancer Adenocarcinoma in situ of cervix Cervical mass Hyperlipidemia Hypertension Surgical History History of colon resection History of colonoscopy History of cholecystectomy Family History Other No significant family history Social History Smoking Status: Never smoker alcohol intake: never substance use type: denies use current occupational status: unemployed Travel in the last 8 weeks?: None caffeine: Yes Have you lived/traveled outside [place] in past 30 days?: No Contact w/someone who lives/traveled outside US past 30 days?: No Exposure to someone with infectious disease in past 14 days?: No Do you have a fever (greater than 100.4 F or 38 C)?: No Have you tested positive for COVID-19?: No Exposed to someone with COVID-19 in past 14 days?: No Do you have a sore throat?: No Do you have a cough?: No Do you have any weakness?: No Do you have any diarrhea?: No Are you experiencing any unusual bleeding?: No Do you have any muscle aches/pain?: No Do you have any abdominal pain?: No Are you experiencing loss of taste or smell?: No Other Medical History Have you received the Pneumonia Vaccine: Yes ROS Obtained: Yes All systems reviewed & no additional complaints except as documented and Yes Systems reviewed as appropriate & no additional complaints except as documented Constitutional Constitutional: Reports system reviewed and no additional complaints, except as documented, Reports as per HPI and Denies headache(s) Eyes Eyes: Reports system reviewed and no additional complaints, except as documented, Reports as per HPI and Denies loss of vision ENT Ears, Nose, Mouth, and Throat: Reports system reviewed and no additional complaints, except as documented, Reports as per HPI, Denies dizziness, Denies headache(s) and Denies neck pain Cardiovascular Cardiovascular: Reports system reviewed and no additional complaints, except as documented, Reports as per HPI and Denies chest pain Respiratory Respiratory: Denies shortness of breath Gastrointestinal Gastrointestingal: Denies abdominal pain Genitourinary Female Genitourinary: Reports system reviewed and no additional complaints, except as documented Musculoskeletal Musculoskeletal: Reports as per HPI, Denies abnormal gait, Denies arthralgias, Denies back pain, Denies deformity, Denies neck pain, Denies numbness and Denies tingling Neurologic Neurologic: Denies abnormal gait, Denies confusion, Denies dizziness, Denies focal weakness, Denies headache(s), Denies lack of coordination, Denies loss of vision, Denies memory loss, Denies numbness, Denies restless legs, Denies seizure-like activity, Denies sensory deficit and Denies tingling Physical Exam General General appearance: alert and in no apparent distress Head Head exam: atraumatic, normocephalic and normal inspection Eye Eye exam: Present PERRL and EOMI ENT ENT exam: Present normal exam Neck Neck exam: Present normal inspection and full ROM; Absent tenderness Chest Chest inspection: Present normal inspection; Absent tenderness Respiratory Respiratory exam: Present normal lung sounds bilaterally; Absent respiratory distress Cardiovascular Cardiovascular exam: Present regular rate and normal rhythm Abdominal Exam Abdominal exam: Present soft; Absent tenderness, guarding or rebound Extremities Exam Extremities exam: Present normal inspection and full ROM; Absent tenderness or joint swelling Back Exam Back exam: Present normal inspection and full ROM; Absent tenderness Neurological Exam Neurological exam: Present alert and oriented X3; Absent CN II-XII intact or motor sensory deficit Skin Skin exam: Present warm and dry Medical Decision Making Medical Records Screening: Per USPSTF and CDC recommendations, given the prevalence of disease in our region, it is our hospital?s policy to screen for HIV and viral Hepatitis for all patients aged 18 and over and those with ongoing risk factors. Mau Inquiry Pt receiving controlled substance: No Vital Signs: 12/29/24 07:01 12/29/24 07:25 12/29/24 07:40 Temperature 98.4 F Temperature Source Oral Pulse Rate 79 Pulse Rate [Right] 77 Respiratory Rate 16 19 Blood Pressure 158/101 H Blood Pressure [Right Arm] 163/103 H Blood Pressure Mean 124 Blood Pressure Mean [Right Arm] 123 02 Sat by Pulse Oximetry 100 100 98 Oxygen Delivery Method Room Air Room Air Room Air 12/29/24 08:00 12/29/24 08:23 12/29/24 08:30 Temperature Temperature Source Pulse Rate 83 84 81 Pulse Rate [Right] Respiratory Rate 17 19 Blood Pressure 157/97 H 158/102 H 167/100 H Blood Pressure [Right Arm] Blood Pressure Mean 134 129 130 Blood Pressure Mean [Right Arm] 02 Sat by Pulse Oximetry 98 99 98 Oxygen Delivery Method Room Air Room Air Room Air 12/29/24 08:35 12/29/24 08:38 12/29/24 08:38 Temperature Temperature Source Pulse Rate 88 83 Pulse Rate [Right] Respiratory Rate 17 Blood Pressure 157/103 H 147/93 H Blood Pressure [Right Arm] Blood Pressure Mean 123 Blood Pressure Mean [Right Arm] 02 Sat by Pulse Oximetry 98 98 Oxygen Delivery Method Room Air Orders (Tests/Meds): ED MEDICATIONS Generic Name Dose Route Start Last Admin Trade Name Freq PRN Reason Stop Dose Admin Levetiracetam 2,000 mg/ Sodium 120 mls @ 220 mls/hr 12/29/24 08:45 Chloride IV 12/29/24 09:17 ONCE ONE Levetiracetam 2,000 mg/ Sodium 120 mls @ 240 mls/hr 12/29/24 08:35 Chloride IV 12/29/24 08:36 ONCE ONE Labetalol HCl 10 mg 12/29/24 08:22 12/29/24 08:35 Labetalol 5mg/Ml 20ml Mdv IV 01/28/25 08:21 10 mg NEEDED PRN Administration systolic goal under 150 ORDERS Category Date Time Status CT cervical spine wo con Stat Cat Scan 12/29/24 07:[address] head/brain wo con Stat Cat Scan 12/29/24 07:11 Completed CXR --portable [XR chest portable] Stat Exams 12/29/24 07:11 Completed Pelvis XR 1-2 views [XR pelvis 1-2V] Stat Exams 12/29/24 07:11 Completed Complete Blood Count Auto Diff Stat Lab 12/29/24 08:25 Received Comprehensive Metabolic Panel Stat Lab 12/29/24 08:25 Received Troponin I Q3H Lab 12/29/24 11:30 Ordered Troponin I Q3H Lab 12/29/24 14:30 Ordered Troponin I Stat Lab 12/29/24 08:[address] CT Scan: Head (Reviewed and independently interpreted, significant for small subarachnoid hemorrhage) Time Received: 08:[address] Reviewed: Yes I have reviewed the patient's CT results, I discussed the CT results w/the radiologist and I have viewed the radiologist's interpretation US Data ED US Reviewed: Yes I have reviewed the patient's US results, I discussed the US results w/the radiologist and I have viewed radiologist's interpretation Physician Consults Physician Consulted: Discussed case with transfer center, accepted to emergency department Reason -: Transfer to another facilty Reason -: Transfer to another facilty Reason -: Transfer to another facilty Medical Decision Narrative: This is a 74-year-old female presenting after a mechanical fall at home. Patient was walking with flip flops and tripped and fell. Family reports that patient hit her head. Patient denies loss of consciousness. No focal deficits. Patient denies any chest pain or pelvic pain. No vomiting or seizures. Arrives here stable, no acute distress, tolerating p.o. intake, able to ambulate without difficulty. Family was concerned due to patient's recent left rib fracture. Patient does take aspirin daily. Due to patient being on aspirin daily, will obtain CT imaging of the head. Due to patient having recent left rib fracture, we will obtain chest x-ray. Patient denies any chest pain or shortness of breath. EKG reviewed and independent interpreted, significant for normal sinus rhythm, no salvation, no STEMI. CT imaging reviewed and independently interpreted, significant for subarachnoid hemorrhage. Please see radiology report for further details. Chest x-ray, pelvic x-ray, CT cervical spine reviewed and independently interpreted, significant for no acute findings. No DDAVP available here. On aspirin daily. Will load with Keppra for seizure prophylaxis. Labetalol as needed ordered for systolic goal under 150. Discussed case with transfer center. Patient will need to be transferred for neurosurgery evaluation, repeat head CT in 6 hours, discussion with neurosurgery about reversal, and likely admission for observation. Accepeted to emergency department. Accepting physician Dr. Villegas. Radiology reads of CT imaging IMPRESSION: 1. No acute fracture of the cervical spine. 2. No subluxation or dislocation of the cervical spine. 3. Intervertebral disc space narrowing C5 through C7 may represent degenerative disc disease.. 4 2.3 cm nodule right lobe of the thyroid. Recommend thyroid ultrasound IMPRESSION: 3.7 mm hyperdensity in the left frontal lobe may be within a sulcus series 3, image 36, 37. This may represent small amount of subarachnoid hemorrhage.. Critical Care Critical Care Time Critical Care Time: No
--- NOTE | 2024-12-29 08:28 | PC.NURSE ---
Alessandra Gandhi is on the phone with for a patient transfer per Dr. Case.
--- NOTE | 2024-12-29 08:34 | PC.NURSE ---
pt has been accepted to [facility] for neuro.
[2024-12-29] MEDS: LABETALOL 5MG/ML 20ML MDV 10 MG IV (08:35)
[2024-12-29 08:40] LABS: Albumin Level 4.5 g/dl (3.5-5.0); Chloride 101 mmol/L (98-107); Hematocrit 36.1 % (37.0-47.0); Hemoglobin 12.1 g/dL (12.2-16.2); Immature Granulocytes % 0.4 %; Mean Corpuscular HGB Conc 33.5 g/dL (31.8-35.4); Mean Corpuscular Hemoglobin 30.4 pg (27.0-31.2); Mean Corpuscular Volume 90.7 fl (81-99); Nucleated Red Blood Cells % 0 %; Platelet Count 256 K/mm3 (142-424); Red Blood Count 3.98 M/mm3 (4.20-5.40); Red Cell Distribution Width-SD 42.8 fL; Sodium 140 mmol/L (136-145); White Blood Count 5.3 K/mm3 (4.8-10.8)
[2024-12-29 08:43] LABS: Alanine Aminotransferase 23 U/L (12-78); Albumin/Globulin Ratio 1.6 (1.1-1.8); Alkaline Phosphatase 88 U/L (38-126); Anion Gap 11.9 mEq/L (5-15); Aspartate Amino Transferase 34 U/L (14-36); Bilirubin,Total 0.7 mg/dl (0.2-1.3); Blood Urea Nitrogen 34 mg/dl (7-17); Calcium 10.0 mg/dl (8.4-10.2); Carbon Dioxide 30 mmol/L (22.0-30.0); Creatinine Clearance Estimated 38 mL/min (50-200); Creatinine,Serum 1.40 mg/dl (0.52-1.04); Estimated Glomerular Filt Rate 37 ml/min (>60); GFR (African American) 44 ML/MIN (>60); Globulin 2.9 g/dL (1.3-3.2); Glucose 103 mg/dl (74-100); Total Protein,Serum 7.4 g/dl (6.3-8.2)
--- NOTE | 2024-12-29 08:48 | PC.NURSE ---
Report called to [facility] to IAN Galaviz.
[2024-12-29 08:54] LABS: Potassium 2.9 mmoL/L (3.5-5.1)
[2024-12-29] MEDS: levETIRAcetam 2,000 MG in 0.9 % SODIUM CHLORIDE 100 ML 220 MG IV (08:55)
[2024-12-29] MEDS: POTASSIUM CHLORIDE 20MEQ TAB 60 MEQ PO (08:58)
[2024-12-29 09:01] LABS: Troponin I < 0.01 ng/ml (0.00-0.034)
--- NOTE | 2024-12-29 09:10 | PC.NURSE ---
EMS at bedside for transport to [facility]. Patient is alert with mild confusion, VSS, Respirations even and unlabored. and [id number] at bedside.
== END 2024-12-29 09:15 | disposition short-term general hospital (02) ==
PROVIDERS: Emergency Provider Student in an Organized Health Care Education/Training Program; PCP Family Medicine
DX: S06.6X0A Traumatic subarachnoid hemorrhage without loss of consciousness, initial encounter (principal); E78.5 Hyperlipidemia, unspecified; I10 Essential (primary) hypertension; W01.0XXA Fall on same level from slipping, tripping and stumbling without subsequent striking against object, initial encounter
CPT/HCPCS: 70450; 71045; 72125; 72170; 80053; 84484; 85025; 93005; 96365; 96375; 99285; J1920; J1953

== ENCOUNTER 2025-01-17 08:39 | Emergency (ER) | payer MEDICARE, SELFPAY ==
--- OUTSIDE RECORDS SUMMARY | 2024-12-04 08:05 | XMS_ITS | Encounter Summary ---
Author Organization [facility] Address [address] [place] [address] Care Team Providers Care Hr Associate Name Role Phone Nolberto Streeter MD Primary Care Provider [phone] Aniya Kathleen MD Unavailable [phone] Encounter Details Date Type Department Care Team (Late Contact Info) Description 12/04/2024 8:05 AM EDT Ancillary Procedure [facility] [address] [place] [address] Social History Tobacco Use Types Packs/Day [...] Department Care Team (Late Contact Info) Description 03/15/2025 8:00 AM EST Office Visit [facility] [address] [place] [address] Anne Garland MD [address] [place] [address] 06/07/2025 9:15 AM EST Office Visit [facility] [address] [place] [address] Triston Velasquez MD [address] [place] [address] 06/28/2025 9:30 AM EST Appointment [facility] [id number] [place] [address] Aniya Kathleen MD [address] [place] [address] documented as of this encounter [...] documented as of this encounter Care Teams Hr Associate Relationship Specialty Start Date End Date Nolberto Streeter MD 430 [facility] [address] [place] [address] PCP - General 09/28/22 Aniya Kathleen MD 800 [facility] [address] [place] [address] Consulting Physician Radiation Therapy 08/05/23 documented as of this encounter
--- OUTSIDE RECORDS SUMMARY | 2024-12-04 08:15 | XMS_ITS | Encounter Summary ---
Author Organization [facility] Address [address] [place] [address] Care Team Providers Care Warehouse Traffic Supervisor Name Role Phone Nolberto Streeter MD Primary Care Provider [phone] Aniya Kathleen MD Unavailable [phone] Reason for Visit * Reason Comments At high risk for open angle glaucoma of both eyes Encounter Details Date Type Department Care Team (Late st Contact Info) Description 12/04/2024 8:15 AM EDT Office Visit [facility] [address] [place] [address] Triston Velasquez MD [address] [address] At high risk for open [...] [address] [place] [address] Anne Garland MD [address] [place] [address] 06/07/2025 9:15 AM EST Office Visit [facility] [address] [place] [address] Triston Velasquez MD [address] [place] [address] 06/28/2025 9:30 AM EST Appointment [facility] [id number] [place] [address] Aniya Kathleen MD [address] [place] [address] documented as of this encounter Procedures Procedure [...] documented as of this encounter Care Teams Warehouse Traffic Supervisor Relationship Specialty Start Date End Date Nolberto Streeter MD [address] [place] [address] [address] [place] [address] PCP - General 09/28/22 Aniya Kathleen MD [address] [place] [address] [address] [place] [address] Consulting Physician Radiation Therapy 08/05/23 documented as of this encounter
--- OUTSIDE RECORDS SUMMARY | 2024-12-07 08:29 | XMS_ITS | Encounter Summary ---
Author Organization [facility] Address [address] [place] [address] Care Team Providers Care Liquid Compounder Name Role Phone Nolberto Streeter MD Primary Care Provider [phone] Aniya Kathleen MD Unavailable [phone] Reason for Visit * Reason Comments Follow-up Encounter Details Date Type Department Care Team (Latest Contact Info) Description 12/07/2024 8:29 AM EDT - 12/07/2024 11:59 PM EDT Hospital Encounter [facility] Rad[facility] [id number] [place] [address] Aniya Kathleen MD [id number] [place] [address] Malignant neoplasm of overlapping sites of cervix (CMS/HCC) (Primary Dx) Discharge Disposition: Still a Patient Social History Tobacco Use Types Packs/Day Years [...] on file documented as of this encounter Last Filed Vital Signs Vital Sign Reading Time Taken Comments Blood Pressure 145/89 12/07/2024 8:50 AM EDT notified Pulse 53 12/07/2024 8:45 AM EDT Temperature 36.4 C (97.5 F) 12/07/2024 8:45 AM EDT Respiratory Rate 16 12/07/2024 8:45 AM EDT Oxygen Saturation 98% 12/07/2024 8:4 5 AM EDT Inhaled Oxygen Concentration - - Weight 72 kg (158 lb 11.7 oz) 8:45 AM EDT Height - - Body Mass Index 27.25 07/06/2024 8:02 AM EST documented in this encounter Medications at Time of Discharge aspirin 81 MG EC tablet Take 1 tablet (81 mg) by mouth daily. atenolol (Tenormin) 25 MG tablet Take 1 tablet (25 mg) by mouth 2 (two) times a day. 07/10/2022 atorvastatin (Lipitor) 20 MG tablet Take 1 tablet (20 mg) by mouth daily. Dorzolamide HCl-Timolol Mal PF 2-0.5 % solution INSTILL 1 TWICE DAILY INTO EACH EYE 11/22/2023 dorzolamide-huang lol (Cosopt) 2-0.5 % ophthalmic solution Administer 1 drop into both eyes in the morning and 1 drop before bedtime. 10 mL 6 07/31/2024 dorzolamide-huang lol (Cosopt) 2-0.5 % ophthalmic solution Administer 1 drop into both eyes 2 times a day. 10 mL 6 12/04/2024 latanoprost (Xalatan) 0.005 % ophthalmic solution Administer 1 drop into both eyes every night. 2.5 mL 3 12/30/2023 Multiple Vitamins-Mineral s (Womens Multi Vitamin & Mineral) tablet Take 1 tablet by mouth 1 (one) time each day. ofloxacin (Ocuflox) 0.3 % ophthalmic solution Administer 1 drop into the left eye 3 (three) times a day. 10 mL 1 02/20/2024 prednisoLONE acetate (Pred-Forte) 1 % ophthalmic suspension Administer 1 drop into the right eye 4 (four) times a day. 10 mL 3 02/20/2024 documented as of this encounter Miscellaneous Notes * Progress Notes - Harrison Villanueva MD - 12/07/2024 9:00 AM EDT RADIATION ONCOLOGY FOLLOW-UP VISIT CC/ID: Tania Irby is a 73 y.o. 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 History of Present Illness: Oncologic History: Patient is previously asymptomatic. She was seen by her PCP a few months ago that requested a screening occult blood test, which resulted positive. By this reason, she was referred for a colonoscopy.The exam was performed on 08/27/2022 and revealed an ascending colon mass, worrisome for neoplasm .Biopsy was performed and resulted negative. In this meantime, the patient started occasional vaginla discharge and was seen by a java android developer that, in the pelvic exam identified a carvical mass. Biopsy on 09/16/2022 resulted endocervical adenocarcinoma in situ. She underwent pre-op work-up with: 09/30/2022. CT chest, abdomen and pelvis with contrast: Soft tissue fullness in the ascending colon, mass is not excluded. This could be further evaluated with colonoscopy. Stable polypoid mass in the cervix worrisome for neoplasm. 09/30/2022. MRI pelvis with contrast: Polypoid 4 centimerers cervical mass most worrisome for neoplasm. Moderate endometrial fluid likelyrelated to cervical obstruction. She was seen by Dr. Garland on 09/29/2022, that proceed with in clinic biopsy. Pathology showed at least endocervical adenocarcinoma in situ , HPV associated. On 10/27/2022, she underwent right colectomy and regional lymph node resection (Dr. Gupta), in addition to exam under anesthesia and cervical biopsy (Dr. Garland), exam findings described below: circumferential replacement of cervix with polypoid tissue, ~5-6cm in diameter. Fixed to vaginal apex with obliterated fornices, some apparent extension to vaginal mucosa on right apex. No obvious parametrial disease. Surgical pathology resulted negative for malignancy in the right colon and in the 16 regional lymphnodes resected. Cervical biopsy resulted at least endocervical adenocarcinoma in situ , no definitive invasion identified. PET 12/17/2022 showedThe biopsy-proven cervical malignancy shows expected intense hypermetabolic uptake with a hypermetabolic right common/external iliac lymph node. 02/17/2023- Completed chemoradiation and brachytherapy. -EBRT: 4500 cGy in 25 fractions to the pelvis and regional lymphatics with a SIB to 5500 cGy in 25 fractions to jong disease was delivered sing VMAT photon plan-tandem and ovoid HDR brachytherapy: 5 fractions, at 550 cGy per fraction Concurrent chemotherapy: yes, cisplatin TREATMENT DATES: 12/29/2022 to 02/17/2023 04/22/2023: PET shows Remarkable treatment response with near complete metabolic resolution of the irradiated primary cervical malignancy as well as suspected right external iliac lymph node (compared to PET/CT 12/17/2022. 05/11/2023: Clinic visit with KYM Morales 08/05/2023: Clinic visit with KYM Shah 08/12/2023: Clinic f/u with Dr. Garland. Hernandez area in vagina, no scans but will repeat exam in 3 months 11/18/2023: Repeat pelvic exam redemonstrated hernandez area. Couldn't obtain biopsy. Pap smear returned ASCUS. 07/06/24: Last saw Dr. Kathleen. Doing well with KYM on exam. 08/17/24: Visit with Dr. Garland. Doing well with KYM on exam. Interval History: Today, patient reports doing very well. Energy and appetite good. States that she is not having diarrhea, abdominal pain, dysuria, vaginal bleeding or discharge. No pain. Using dilator regularly 3x weekly. Radiation Treatment History: Treatment Site: Pelvis Total Dose: 45 Gy in 25 fractions with a 55 Gy SIB in 25 fractions to lymph nodes Treatment Site: Pelvic Brachythearpy Total Dose: 550cGy x 5 fractions Date RT completed: 02/17/2023 Ms. Irby has no history of collagen vascular diseases, such as lupus or scleroderma. She does havea history of prior radiation therapy as detailed above. Ms. Irby had prior systemic therapy concurrent cisplatin. I have reviewed Ms. Irby's medical, surgical and other pertinent history in detail, and have updated medication and allergy information in the computerized patient record. Past Medical History: She has a past medical history of Cancer (CMS/HCC), Cataracts, bilateral, Glaucoma (increased eye pressure), Heartburn, abnormal cervical Pap smear, Hyperlipidemia, and Hypertension. Past Surgical History: She has a past surgical history that includes Colonoscopy; endoscopy; Cholecystectomy; Colon surgery (12/01/2022); Cataract extraction, extracapsular w/ intraocular lens implant (Left, 02/27/2024); and Cataract extraction w/ intraocular lens implant (Right, 03/12/2024). Medications: Current Outpatient Medications Medication Instructions aspirin 81 mg, Daily atenolol (TENORMIN) 25 mg, 2 times daily atorvastatin (LIPITOR) 20 mg, Daily Dorzolamide HCl-Timolol Mal PF 2-0.5 % solution INSTILL 1 TWICE DAILY INTO EACH EYE dorzolamide-timolol (Cosopt) 2-0.5 % ophthalmic solution 1 drop, Both Eyes, 2 times daily dorzolamide-timolol (Cosopt) 2-0.5 % ophthalmic solution 1 drop, Both Eyes, 2 times daily latanoprost (Xalatan) 0.005 % ophthalmic solution 1 drop, Both Eyes, Nightly Multiple Vitamins-Minerals (Womens Multi Vitamin & Mineral) tablet 1 tablet, Daily ofloxacin (Ocuflox) 0.3 % ophthalmic solution 1 drop, Left Eye, 3 times daily prednisoLONE acetate (Pred-Forte) 1 % ophthalmic suspension 1 drop, Right Eye, 4 times daily Allergies: Hydrochlorothiazide Physical Exam: Vital Signs: Visit Vitals LMP 09/30/1979 (Approximate) OB Status Postmenopausal Smoking Status Never General/Constitutional: Well developed, well nourished female, who looks her stated age of 73 y.o..No acute distress. HEENT: Head: Normocephalic and atraumatic. Moist mucus membranes. Eyes: Extraocular movements are intact. Sclerae are anicteric. Neck: Supple, with no lymphadenopathy. Cardiac: Regular rate and rhythm. Pulmonary/Chest: Normal respiratory effort. Symmetric chest rise. Neurological: Conscious, alert and oriented. Cranial nerves II through XII are intact grossly. No focal neurologic deficit. Gait is coordinated and non-antalgic. Skin: Skin is warm and dry. Flush, pallor and rash absent. Abdomen: Soft, non-tender, non-distended. Extremities: Normal range of motion in all four extremities. No edema. Pelvic: Performed with brake mechanic. normal external genitalia, vagina shows possible post-radiation changes. She has a L healed vaginal laceration with surrounding tissue brown has continue to heal. Data: Radiographic Studies: PET 04/22/2023 IMPRESSION: Remarkable treatment response with near complete metabolic resolution of the irradiated primary cervical malignancy as well as suspected right external iliac lymph node (compared to PET/CT 12/17/2022. Other unchanged potentially benign FDG avid and non-FDG avid findings are described above. Pathology: Interpretation (no units) Date/Time Value 11/18/2023 1417 (A) ATYPICAL SQUAMOUS CELLS OF UNDETERMINED SIGNIFICANCE (ASCUS) Laboratory studies: Asymptomatic Assessment and Plan: In summary, Tania Irby is a 73 y.o. 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 In overall assessment: Diagnosis of endocervical adenocarcinoma: She has done well, exam no obvious evidence of disease recurrence Sequelae of treatment: none Vaginal dilator with instructions given: yes Follow-up plan: She will see Dr. Garland in 03/2025. We will have her return in 06/2025. No orders of the defined types were placed in this encounter. Thank you for allowing us to participate in the care of this very pleasant patient. Please do not hesitate to contact me should any questions arise. I spent approximately 30 minutes with the patient and with patient-related care coordination. Harrison Villanueva MD, MPH Radiation Oncology PGY2 Cosigned by Aniya Kathleen MD at 12/07/2024 10:10 AM EDT Associated attestation - Aniya Kathleen MD - 12/07/2024 10:10 AM EDT I saw and evaluated the patient with the resident/fellow. I discussed the case with the resident/fellow and agree with the findings and plan as documented. documented in this encounter Plan of Treatment Upcoming Encounters Date Type Department Care Team (Late st Contact Info) Description 03/15/2025 8:00 AM EST Office Visit [facility] [address] [place] [address] Anne Garland MD 800 [facility] [address] [facility] [address] [place] [address] 06/07/2025 9:15 AM EST Office Visit [facility] [address] [place] [address] Triston Velasquez MD 110 [facility] [address] [place] [address] 06/28/2025 9:30 AM EST Appointment [facility] [id number] [place] [address] Aniya Kathleen MD 800 [facility] [address] [place] [phone] documented as of this encounter Visit Diagnoses Diagnosis Malignant neoplasm of overlapping sites of cervix (CMS/HCC)- Primary documented in this encounter Additional Health Concerns Assessment Noted Time A fall risk assessment has been complete d for the patient 12/07/2024 8:48 AM EDT A Body Mass Index follow-up plan has been documented for the patient 12/04/2024 9:30 AM EDT documented as of this encounter Care Teams Liquid Compounder Relationship Specialty Start Date End Date Nolberto Streeter MD [address] [place] [address] [address] [place] [address] PCP - General 09/28/22 Aniya Kathleen MD [address] [place] [address] [address] [place] [address] Consulting Physician Radiation Therapy 08/05/23 documented as of this encounter
--- OUTSIDE RECORDS SUMMARY | 2024-12-29 10:19 | XMS_ITS | Encounter Summary ---
Author Organization Healthcare Address [address] [place] [address] Care Team Providers Care Energy Control Officer Name Role Phone Nolberto Streeter MD Primary Care Provider [phone] Aniya Kathleen MD Unavailable Reason for Referral * Consultation (Routine) - Authorized Specialty Diagnoses / Procedures Referred By Giana ferrer Referred To Contact Neurosurgery Diagnoses Other closed fracture of eleventh thoracic vertebra, initial encounter ([facility]) Fall, initial encounter Mario Montesinos MD [address] [place] [id number] Phone: tel: fax: Referral ID Status Reason Start Date Expiration Date Visits Requested Visits Authorized [id number] Authorized Specialty Services Required 12/29/2024 06/30/2026 1 1 Reason for Visit * Reason Comments Fall Encounter Details Date Type Department Care Team ([facility] Contact Info) Description 12/29/2024 10:19 AM EDT - 12/29/2024 3:18 PM EDT Emergency [facility] [address] [place] [address] Mario Montesinos MD [address] [place] [phone] Other closed fracture of eleventh thoracic vertebra, initial encounter ([facility]) (Primary Dx); Fall, initial encounter [...] MD Resident Physician, PGY-2 Department of Neurosurgery [facility] [1] No family history on file. [2] [...] and time. EASI ?? Total Score: 0 [place] Coma Scale Score: 15 TRST Assessment Total: [...] fracture of eleventh thoracic vertebra, initial encounter ([facility]) Fall, initial encounter Social Determinates of Health Risks (including Economic Stability, Education and level of understanding, Healthcare access and quality and concerning social factors): None identified on this visit Ultimately, this patient was Was discharged Home (Discharge) The primary encounter diagnosis was Other closed fracture of eleventh thoracic vertebra, initial encounter ([facility]). A diagnosis of Fall, initial [...] OSH scans. Pt takes aspirin. GCS 15. Plsds7a keppra and 10mg labetolol at osh. Also has right rib fx from fall 2 weeks ago. documented in this encounter Plan of Treatment Upcoming Encounters Date Type Department Care Team (Late st Contact Info) Description 03/15/2025 8:00 AM EST Office Visit [facility] [address] [place] [phone] Anen Garland MD [address] [place] [phone] 06/07/2025 9:15 AM EST Office Visit [facility] [address] [place] [address] Triston Velasquez MD [address] [place] [address] 06/28/2025 9:30 AM EST Appointment [facility] Radiation [address] [place] [phone] Aniya Kathleen MD [address] [place] [phone] Scheduled Referrals Name Type Priority Associated Diagnoses Order Schedule Discharge Ambulatory referral to Neurosurgery Outpatient Referral Routine Other closed fracture of eleventh thoracic vertebra, initial encounter ([facility]) Fall, initial encounter Expected: 12/29/2024 [...] Total DLP (Dose-Length Product): 2367.61 mGy.cm (accession [id number]), 2367.61 mGy.cm (accession [id number]). Please note: The reported value represents the [...] Total DLP (Dose-Length Product): 2367.61 mGy.cm (accession [id number]),2367.61 mGy.cm (accession [id number]). Please note: The reported valuerepresents the total [...] Total DLP (Dose-Length Product): 2367.61 mGy.cm (accession [id number]), 2367.61 mGy.cm (accession [id number]). Please note: The reported value represents the [...] Total DLP (Dose-Length Product): 2367.61 mGy.cm (accession [id number]),2367.61 mGy.cm (accession [id number]). Please note: The reported valuerepresents the total [...] Total DLP (Dose-Length Product): 2367.61 mGy.cm (accession [id number]), 2367.61 mGy.cm (accession [id number]), 2367.61 mGy.cm (accession [id number]). Please note: The reported value represents the [...] Total DLP (Dose-Length Product): 2367.61 mGy.cm (accession [id number]),2367.61 mGy.cm (accession [id number]), 2367.61 mGy.cm (accession [id number]).Please note: The reported value represents the total [...] 1:21 PM EDT) Anatomical Region Laterality Modality [place] Computed Tomogr aphy Impressions 12/29/2024 [...] Total DLP (Dose-Length Product): 2367.61 mGy.cm (accession [id number]), 2367.61 mGy.cm (accession [id number]), 2367.61 mGy.cm (accession [id number]). Please note: The reported value represents the [...] Total DLP (Dose-Length Product): 2367.61 mGy.cm (accession [id number]),2367.61 mGy.cm (accession [id number]), 2367.61 mGy.cm (accession [id number]).Please note: The reported value represents the total [...] Total DLP (Dose-Length Product): 2367.61 mGy.cm (accession [id number]), 2367.61 mGy.cm (accession [id number]), 2367.61 mGy.cm (accession [id number]). Please note: The reported value represents the [...] Total DLP (Dose-Length Product): 2367.61 mGy.cm (accession [id number]),2367.61 mGy.cm (accession [id number]), 2367.61 mGy.cm (accession [id number]).Please note: The reported value represents the total [...] HIV 1/2 Differentiation (12/29/2024 11:13 AM EDT) HIV 1 & 2 Antibody/Antigen Screen Non Reactive Non Reactive 12/29/2024 12:13 PM EDT [facility] Comment:Screening for HIV 1 & 2 antibodies, and P24 antigen is NONREACTIVE. No confirmatory testing is required. Blood Venous blood specimen / Unknown Venipuncture / Unknown 12/29/2024 11:13 AM EDT 12/29/2024 11:32 AM EDT us Mario Montesinos MD LAB BLOOD ORDERABLES Final Result [facility] [address] [place] [address] * Hepatitis C Antibody - ED (12/29/2024 11:13 AM EDT) Hepatitis C Antibody Negative Negative 12/29/2024 12:10 PM EDT [facility] Blood Venous blood specimen / Unknown Venipuncture / Unknown 12/29/2024 11:13 AM EDT 12/29/2024 11:29 AM EDT us Mario Montesinos MD LAB BLOOD ORDERABLES Final Result [facility] [address] [place] [address] * (ABNORMAL) CBC w/diff (12/29/2024 11:13 AM EDT) WBC Count 5.48 3.70 - 10.30 10*3/uL LAB HEMATOLOGY METHOD 12/29/2024 11:17 AM EDT [facility] RBC Count 3.92 3.90 - 5.20 10*6/uL LAB HEMATOLOGY METHOD 12/29/2024 11:17 AM EDT [facility] HGB 11.8 11.2 - 15.7 g/dL LAB HEMATOLOGY METHOD 12/29/2024 11:17 AM EDT [facility] HCT 35.4 34.0 - 45.0 % LAB HEMATOLOGY METHOD 12/29/2024 11:17 AM EDT [facility] Platelet Count 236 155 - 369 10*3/uL LAB HEMATOLOGY METHOD 12/29/2024 11:17 AM EDT [facility] MCV 90 79 - 98 fL LAB HEMATOLOGY METHOD 12/29/2024 11:17 AM EDT [facility] MCH 30.1 26.0 - 32.0 pg LAB HEMATOLOGY METHOD 12/29/2024 11:17 AM EDT [facility] MCHC 33.3 30.7 - 35.5 g/dL LAB HEMATOLOGY METHOD 12/29/2024 11:17 AM EDT [facility] RDW 13.1 11.5 - 14.5 % LAB HEMATOLOGY METHOD 12/29/2024 11:17 AM EDT [facility] MPV 8.1(L) 8.8 - 12.5 fL LAB HEMATOLOGY METHOD 12/29/2024 11:17 AM EDT [facility] nRBC 0.0 <=0.0 per 100 WBCs LAB HEMATOLOGY METHOD 12/29/2024 11:17 AM EDT [facility] Differential Type Automated LAB HEMATOLOGY METHOD 12/29/2024 11:17 AM EDT [facility] Neutrophils % 69 % LAB HEMATOLOGY METHOD 12/29/2024 11:17 AM EDT [facility] Lymphocytes % 21 % LAB HEMATOLOGY METHOD 12/29/2024 11:17 AM EDT [facility] Monocytes % 7 % LAB HEMATOLOGY METHOD 12/29/2024 11:17 AM EDT [facility] Eosinophils % 2 % LAB HEMATOLOGY METHOD 12/29/2024 11:17 AM EDT [facility] Basophils % 1 % LAB HEMATOLOGY METHOD 12/29/2024 11:17 AM EDT [facility] Immature Granulocytes % 0 % LAB HEMATOLOGY METHOD 12/29/2024 11:17 AM EDT [facility] Neutrophils Absolute 3.81 1.60 - 6.10 10*3/uL LAB HEMATOLOGY METHOD 12/29/2024 11:17 AM EDT [facility] Lymphocytes Absolute 1.16(L) 1.20 - 3.90 10*3/uL LAB HEMATOLOGY METHOD 12/29/2024 11:17 AM EDT [facility] Monocytes Absolute 0.36 0.30 - 0.90 10*3/uL LAB HEMATOLOGY METHOD 12/29/2024 11:17 AM EDT [facility] Eosinophils Absolute 0.10 0.00 - 0.50 10*3/uL LAB HEMATOLOGY METHOD 12/29/2024 11:17 AM EDT [facility] Basophils Absolute 0.04 0.00 - 0.10 10*3/uL LAB HEMATOLOGY METHOD 12/29/2024 11:17 AM EDT [facility] Immature Granulocytes Absolute 0.01 0.00 - 0.06 10*3/uL LAB HEMATOLOGY METHOD 12/29/2024 11:17 AM EDT [facility] Blood Venous blood specimen / Unknown Venipuncture / Unknown 12/29/2024 11:13 AM EDT 12/29/2024 11:15 AM EDT Narrative [facility] - 12/29/2024 11:17 AM EDT Therapeutic decision making should be based on absolute values, rather than percentages. us Mario Montesinos MD LAB BLOOD ORDERABLES Final Result [facility] [address] [place] [address] * (ABNORMAL) CMP (12/29/2024 11:13 AM EDT) Glucose, Plasma 95 74 - 99 mg/dL 12/29/2024 11:37 AM EDT [facility] BUN, Plasma 30(H) 8 - 23 mg/dL 12/29/2024 11:37 AM EDT [facility] Creatinine, Plasma 1.25(H) 0.60 - 1.10 mg/dL 12/29/2024 11:37 AM EDT [facility] BUN/Creatinine Ratio 24 12/29/2024 11:37 AM EDT [facility] Sodium, Plasma 138 136 - 145 mmol/L 12/29/2024 11:37 AM EDT [facility] Potassium, Plasma 2.9(L) 3.6 - 4.9 mmol/L 12/29/2024 11:37 AM EDT [facility] Chloride, Plasma 98 97 - 107 mmol/L 12/29/2024 11:37 AM EDT [facility] CO2, Plasma 26 22 - 29 mmol/L 12/29/2024 11:37 AM EDT [facility] Anion Gap 14 6 - 16 mmol/L 12/29/2024 11:37 AM EDT [facility] Total Calcium, Plasma 9.8 8.9 - 10.2 mg/dL 12/29/2024 11:37 AM EDT [facility] Total Protein 7.1 6.3 - 7.9 g/dL 12/29/2024 11:37 AM EDT [facility] Albumin, Plasma 4.2 3.5 - 5.2 g/dL 12/29/2024 11:37 AM EDT [facility] AST, Plasma 22 10 - 35 U/L 12/29/2024 11:37 AM EDT [facility] ALT, Plasma 20 10 - 35 U/L 12/29/2024 11:37 AM EDT [facility] Alkaline Phosphatase, Plasma 72 46 - 142 U/L 12/29/2024 11:37 AM EDT [facility] Total Bilirubin, Plasma 0.5 0.2 - 1.1 mg/dL 12/29/2024 11:37 AM EDT [facility] eGFRcr 44.8 mL/min/1.7 3m*2 12/29/2024 11:37 AM EDT [facility] Comment:Reported eGFRcr in m L/min/1.73m2 is based the CKD-EPI 2020 equation that does not use a race coefficient. Blood Venous blood specimen / Unknown Venipuncture / Unknown 12/29/2024 11:13 AM EDT 12/29/2024 11:15 AM EDT us Mario Montesinos MD LAB BLOOD ORDERABLES Final Result [facility] [address] [place] [id number] documented in this encounter Visit Diagnoses Diagnosis Other closed fracture of eleventh thoracic vertebra, initial encounter ([facility])- Primary Fall, initial encounter documented [...] Routine 1313 (Given - Provid er: Fabi Dennsi RN) documented in this encounter Additional Health Concerns Assessment Noted Time A fall risk assessment has been complete d for the patient 12/07/2024 8:48 AM EDT A Body Mass Index follow-up plan has been documented for the patient 12/04/2024 9:30 AM EDT documented as of this encounter Care Teams Energy Control Officer Relationship Specialty Start Date End Date Nolberto Streeter MD [address] [facility] [address] [place] [address] PCP - General 09/28/22 Aniya Kathleen MD [address] [place] [address] [address] [place] [address] Consulting Physician Radiation Therapy 08/05/23 documented as of this encounter
[2025-01-17] VITALS (11 sets, daily range): BP systolic 80–155; BP diastolic 53–91; PULSE 79–98; RESP 11–17; TEMP 36.5–36.9; O2SAT 96–100; BMI 27.8
--- NOTE | 2025-01-17 08:46 | ECG_ITS ---
APPROVED REPORT Exam: Resting ECG HR:84 bpm ECG Measurements Heart Rate 84 AXES TN 183 P 57 QRSd 96 QRS -26 QT 383 T 53 QTc 425 Conclusion SINUS RHYTHM WITH OCCASIONAL VENTRICULAR PREMATURE COMPLEXES BORDERLINE LEFT AXIS DEVIATION [QRS AXIS < -20] No STEMI Electronically signed by : EDWARD VAUGHAN, 01/18/2025 02:52:42
--- NOTE | 2025-01-17 08:52 | HMH.EDGENADL ---
Discharge Plan Disposition Patient Disposition: Home, Self-Care Condition: Fair Prescriptions Prescriptions: New potassium chloride [Klor-Con M20] 20 mEq tablet,ER particles/crystals 40 meq PO DAILY Qty: 14 0RF Continued multivitamin [Daily Multi-Vitamin] Tablet 1 tab PO DAILY dorzolamide-timolol 22.3-6.8 mg/mL drops 1 drp Eye-Both BID Patient Comments: INSTILL 1 DROP INTO EACH EYE TWICE DAILY atorvastatin 20 mg Tablet 20 mg PO HS aspirin 81 mg Capsule 81 mg PO DAILY Held amlodipine 5 mg tablet 5 mg PO DAILY Hold Instructions: pcp f/u Patient Comments: TAKE 1 TABLET BY MOUTH ONCE DAILY hydrochlorothiazide 12.5 mg tablet 12.5 mg PO DAILY Hold Instructions: until PCP f/u Discontinued atenolol 25 mg tablet 25 mg PO BID Referrals Follow up/Referrals: Tashi Streeter MD [Primary Care Provider, Medical] - 01/23/25 9:15 am Patrick Low MD [Staff Physician, Cardiology] - 01/23/25 10:30 am Activity Restrictions/Add. Instructions Additional Instructions/Restrictions: Stop taking your HCTZ and start taking potassium chloride. Return to the emergency department for new or worsening symptoms. Follow-up with cardiology as soon as possible. Clinical Impressions Clinical Impression: Diuretic-induced hypokalemia Instructions Patient Instructions: DI for Syncope in Adults (Fainting), DI for Syncope in Children (Fainting) Print Language Print Language: Azeri Discharge ED Provider: Jerilyn Carranza General Adult HPI General Chief complaint: Syncope Stated complaint: confusion, passing out Time Seen by Provider: 01/17/25 08:46 History of Present Illness HPI narrative: Patient is a 74-year-old with past medical history significant for hypertension hyperlipidemia presents to the emergency department with syncopal episodes. Patient has had multiple syncopal episodes 2 in the last 24 hours that are worse than ever she stands up. She had a fall 2 weeks ago that caused her to have rib fractures and a subarachnoid hemorrhage due to similar problems in the past was given a referral to neurology but was unable to get insurance to approve it yet. Patient says that whenever she stands up she feels lightheaded like she is about to pass out will have a shuffling gait and then will have to lower herself to the ground. This episode happened this morning. Patient was caught by her loved 1 and was lowered to the ground but was fully passed out for approximately 1 minute. They have also been checking patient's blood pressure that has been variable and on the lower side. Patient denies any headache chest pain shortness of breath or palpitations. She says that she has been eating and drinking normally but per this is not very much. Related Data Home Medications ?Medication ?Instructions ?Recorded ?Confirmed aspirin 81 mg capsule 81 mg PO DAILY 08/27/22 01/17/25 atorvastatin 20 mg tablet 20 mg PO HS 08/27/22 01/17/25 multivitamin (Daily Multi-Vitamin 1 tab PO DAILY 07/03/24 01/17/25 tablet) amlodipine 5 mg tablet 5 mg PO DAILY 12/25/24 01/17/25 Held on 01/17/25. Instructions: pcp f/u dorzolamide 22.3 mg-timolol 6.8 1 drp Eye-Both BID 12/25/24 01/17/25 mg/mL eye drops hydrochlorothiazide 12.5 mg tablet 12.5 mg PO DAILY 01/17/25 01/17/25 Held on 01/17/25. Instructions: until PCP f/u Previous Rx's ?Medication ?Instructions ?Recorded potassium chloride 20 mEq 40 meq (2 x 20 mEq) PO DAILY #14 01/17/25 tablet,extended tabs release(part/cryst) (Klor-Con M) Allergies Allergy/AdvReac Type Severity Reaction Status Date / Time hydrochlorothiazide Allergy Unknown SYNCOPE Verified 12/25/24 13:38 (HYDROCHLOROTHIAZIDE) [facility] Disclaimer: The information contained in this section may have been updated after the patient was seen, as this information can be updated by other users. Medical History Impacted cerumen of both ears Hearing loss COVID-19 Colon cancer Cervical cancer Adenocarcinoma in situ of cervix Cervical mass Hyperlipidemia Hypertension Surgical History History of colon resection History of colonoscopy History of cholecystectomy Family History Other No significant family history Social History Smoking Status: Never smoker alcohol intake: never substance use type: denies use current occupational status: unemployed Travel in the last 8 weeks?: None caffeine: Yes Other Medical History Have you received the Pneumonia Vaccine: Yes ROS Obtained: Yes All systems reviewed & no additional complaints except as documented Physical Exam General General appearance: alert and in no apparent distress Head Head exam: atraumatic Eye Eye exam: Present normal appearance, PERRL and EOMI ENT ENT exam: Present normal exam and mucous membranes moist Neck Neck exam: Present normal inspection and full ROM Chest Chest inspection: Present normal inspection and symmetric chest wall rise Respiratory Respiratory exam: Present normal lung sounds bilaterally; Absent respiratory distress Cardiovascular Cardiovascular exam: Present regular rate and normal rhythm Abdominal Exam Abdominal exam: Present soft; Absent distention or tenderness Neurological Exam Neurological exam: Present alert, oriented X3, CN II-XII intact, normal gait and other (Normal [id number] and qmyh-[id number]); Absent motor sensory deficit Skin Skin exam: Present warm and dry Medical Decision Making Medical Records Screening: Per USPSTF and CDC recommendations, given the prevalence of disease in our region, it is our hospital?s policy to screen for HIV and viral Hepatitis for all patients aged 18 and over and those with ongoing risk factors. Mau Inquiry Pt receiving controlled substance: No Vital Signs: 01/17/25 08:54 01/17/25 09:00 01/17/25 09:24 Temperature 97.7 F Temperature Source Oral Pulse Rate 84 94 H Pulse Rate [Left] 85 Pulse Rate [Orthostatic Lying Left] Pulse Rate [Orthostatic Sitting Left] Pulse Rate [Orthostatic Standing Left] Respiratory Rate 16 16 14 Blood Pressure 136/85 115/74 Blood Pressure [Orthostatic Lying Right Arm] Blood Pressure [Orthostatic Sitting Right Arm] Blood Pressure [Orthostatic Standing Right Arm] Blood Pressure [Right Arm] 153/90 H Blood Pressure Mean 102 Blood Pressure Mean [Right Arm] 111 Blood Pressure Source [Right Arm] Automatic Cuff Blood Pressure Position [Right Arm] Supine 02 Sat by Pulse Oximetry 98 97 96 Oxygen Delivery Method Room Air Room Air 01/17/25 09:25 01/17/25 09:27 01/17/25 09:31 Temperature Temperature Source Pulse Rate 88 80 Pulse Rate [Left] Pulse Rate [Orthostatic Lying Left] 79 Pulse Rate [Orthostatic Sitting Left] 89 Pulse Rate [Orthostatic Standing Left] 90 Respiratory Rate 11 L 14 Blood Pressure 113/69 140/88 Blood Pressure [Orthostatic Lying Right Arm] 115/74 Blood Pressure [Orthostatic Sitting Right Arm] 113/69 Blood Pressure [Orthostatic Standing Right Arm] 80/53 L Blood Pressure [Right Arm] Blood Pressure Mean Blood Pressure Mean [Right Arm] Blood Pressure Source [Right Arm] Blood Pressure Position [Right Arm] 02 Sat by Pulse Oximetry 98 98 Oxygen Delivery Method 01/17/25 10:30 01/17/25 11:00 01/17/25 11:30 Temperature Temperature Source Pulse Rate 94 H 94 H 98 H Pulse Rate [Left] Pulse Rate [Orthostatic Lying Left] Pulse Rate [Orthostatic Sitting Left] Pulse Rate [Orthostatic Standing Left] Respiratory Rate 14 14 15 Blood Pressure 117/78 140/77 137/85 Blood Pressure [Orthostatic Lying Right Arm] Blood Pressure [Orthostatic Sitting Right Arm] Blood Pressure [Orthostatic Standing Right Arm] Blood Pressure [Right Arm] Blood Pressure Mean 98 Blood Pressure Mean [Right Arm] Blood Pressure Source [Right Arm] Blood Pressure Position [Right Arm] 02 Sat by Pulse Oximetry 100 98 98 Oxygen Delivery Method Room Air 01/17/25 12:00 01/17/25 12:50 Temperature 98.5 F Temperature Source Oral Pulse Rate 95 H 79 Pulse Rate [Left] Pulse Rate [Orthostatic Lying Left] Pulse Rate [Orthostatic Sitting Left] Pulse Rate [Orthostatic Standing Left] Respiratory Rate 15 17 Blood Pressure 155/91 H 124/79 Blood Pressure [Orthostatic Lying Right Arm] Blood Pressure [Orthostatic Sitting Right Arm] Blood Pressure [Orthostatic Standing Right Arm] Blood Pressure [Right Arm] Blood Pressure Mean 108 Blood Pressure Mean [Right Arm] Blood Pressure Source [Right Arm] Blood Pressure Position [Right Arm] 02 Sat by Pulse Oximetry 98 Oxygen Delivery Method Room Air Room Air Lab Data Lab Results 01/17/25 08:50: WBC 7.3, RBC 4.15 L, Hgb 12.1 L, Hct 37.5, MCV 90.4, MCH 29.2, MCHC 32.3, RDW 12.8, Plt Count 259, MPV 9.1, Neut % (Auto) 72.5, Lymph % (Auto) 18.2, [place] % (Auto) 7.0, Eos % (Auto) 1.5, Baso % (Auto) 0.5, Neut # (Auto) 5.3, Lymph # (Auto) 1.3, [place] # (Auto) 0.5, Eos # (Auto) 0.1, Baso # (Auto) 0.0, Sodium 139, Potassium 2.9 L*, Chloride 96 L, Carbon Dioxide 34 H, Anion Gap 11.9, BUN 29 H, Creatinine 1.20 H, Estimated Creat Clear 43, Estimated GFR 44 L, Est GFR ( Amer) 53 L, Glucose 112 H, Calcium 9.9, Phosphorus 3.0, Magnesium 1.7, Total Bilirubin 1.0, AST 34, ALT 21, Alkaline Phosphatase 72, Troponin I < 0.01, NT-Pro-B Natriuret Pep 365, Total Protein 7.3, Albumin 4.6, Globulin 2.7, Albumin/Globulin Ratio 1.7 01/17/25 10:30: Troponin I < 0.01 01/17/25 08:50 01/17/25 08:50 Orders (Tests/Meds): ED MEDICATIONS Discontinued Medications Generic Name Dose Route Start Last Admin Trade Name Ezequiel PRN Reason Stop Dose Admin Lactated Ringer's 500 mls @ 999 mls/hr 01/17/25 09:05 01/17/25 10:31 Lactated Ringer's 500ml IV 01/17/25 09:35 Infused .Q31M ONE Infusion Lactated Ringer's 500 mls @ 999 mls/hr 01/17/25 11:39 01/17/25 12:49 Lactated Ringer's 500ml IV 01/17/25 12:09 Infused .Q31M ONE Infusion Iopamidol 160 ml 01/17/25 10:01 01/17/25 10:02 Iopamidol-370 (76%);100ml Bottle IV 01/17/25 10:02 160 ml ONCE ONE Administration Potassium Chloride 40 meq 01/17/25 09:44 01/17/25 10:26 Potassium Chloride 20meq Tab PO 01/17/25 09:45 40 meq ONCE ONE Administration Sodium Chloride 10 ml 01/17/25 10:01 01/17/25 10:02 Sodium Chloride 0.9% 10ml Syr (Rad Only) IV 01/17/25 10:02 10 ml ONCE ONE Administration Sodium Chloride 100 ml 01/17/25 10:01 01/17/25 10:02 0.9 % Sodium Chloride 50 Ml Vial IV 01/17/25 10:02 100 ml ONCE ONE Administration ORDERS Category Date Time Status CT angio chest PE protocol Stat Cat Scan 01/17/25 09:[address] angio head Stat Cat Scan 01/17/25 09:[address] angio neck Stat Cat Scan 01/17/25 09:[address] head/brain wo con Stat Cat Scan 01/17/25 09:02 Completed CA echo limited Stat Exams 01/17/25 09:14 Completed POCUS Point of Care (ER Only) Stat Exams 01/17/25 09:02 Completed Complete Blood Count Auto Diff Stat Lab 01/17/25 08:50 Completed Comprehensive Metabolic Panel Stat Lab 01/17/25 08:50 Completed Magnesium Stat Lab 01/17/25 08:50 Completed NT Pro Brain Natriuretic Pep. Stat Lab 01/17/25 08:50 Completed Phosphorous Stat Lab 01/17/25 08:50 Completed Troponin I Q3H Lab 01/17/25 10:30 Completed Troponin I Stat Lab 01/17/25 08:50 Completed Medical Decision Narrative: In summary, this 74-year-old female presents to the emergency department today with syncopal episode. On initial evaluation patient is hemodynamically stable saturating appropriately on room air afebrile in no acute distress. Differential diagnosis includes but is not limited to polypharmacy, medication side effect, orthostatic syncope, cardiogenic syncope including valvular disease, vertebrobasilar or carotid insufficiency. Based on these concerns, I ordered CBC CMP orthostatic vitals CTA head and neck CT PE BMP phosphorus troponin magnesium ECG personally interpreted demonstrates normal sinus rhythm no ST elevation ST pression T wave inversions concerning for ischemia Patient received 1 L LR and 40 mg of p.o. for treatment. Labs personally reviewed demonstrate hypokalemia, elevated bicarb mild elevation in creatinine. CT imaging personally interpreted demonstrate no saddle PE no intracranial hemorrhage no large vessel occlusion I had an interactive discussion with hospitalist due to concern of orthostatic syncope in the setting of HCTZ side effect. They evaluated patient and at this time patient and family feel that they can manage patient's hypoglycemia and orthostatic syncope at home. Ultimately patient was discharged with outpatient follow-up with her PCP instructed to hold HCTZ at this time as it is likely contributing to her syncope. Was given prescription for outpatient potassium and outpatient follow-up with cardiology as well. Procedures Limited Ultrasound Indication:: Syncope Findings:: Limited Cardiac Ultrasound Indication: Syncope Identified cardiac views: [-Cardiac parasternal long axis] [-Cardiac apical four-chamber] Findings: [-Cardiac activity present -Gross wall motion normal -Pericardial effusion absent -Right heart strain absent Impression: - Normal limited cardiac ultrasound Images saved to permanent archive The study was technically adequate CPT: 48577 This study was performed by me, and I personally interpreted all images/videos. Based on my clinical judgement, these images were [adequate/inadequate] and [did/did not] necessitate further imaging. Critical Care Critical Care Time Critical Care Time: No
--- NOTE | 2025-01-17 09:02 | CT_ITS ---
FINAL REPORT TECHNIQUE: Thin section axial images were obtained from the aortic arch to the skull base after intravenous contrast injection per CTA protocol. Multiplanar reconstruction images were obtained. Exam was performed using dose reduction techniques and the ALARA principle. CLINICAL HISTORY: syncope, cp FINDINGS: CTA NECK: Aortic arch: There is a normal three-vessel configuration to the aortic arch. There is no significant stenosis of the great vessels at their origins. Right carotid artery: The right common carotid artery is patent without stenosis. The cervical portions of the right internal carotid artery are patent without stenosis. 0% stenosis per NASCET criteria. Left carotid artery: The left common carotid artery is patent without stenosis. The cervical portions of the left internal carotid artery are patent without stenosis. 0% stenosis per NASCET criteria. Vertebral arteries: The vertebral arteries are patent. No significant stenosis. Other soft tissues: No acute soft tissue abnormality.. IMPRESSION: No evidence of carotid stenosis. Patent vertebral arteries. Reviewed, Interpreted and Dictated by Nanda Gregorio MD Transcribed by Gilda Cabrales Authenticated and [facility]
--- NOTE | 2025-01-17 09:02 | CT_ITS ---
FINAL REPORT TECHNIQUE: Thin section axial images were obtained through the head after contrast administration per CT angiogram protocol. Multiplanar reconstruction images were obtained from the axial data. Exam was performed using dose reduction techniques such as automated exposure control, adjustment of the mA and kV according to patient's size, and use of iterative reconstruction technique. CLINICAL HISTORY: syncope, cp FINDINGS: CTA HEAD: The intracerebral portions of the carotid arteries are patent. The anterior and posterior circulation are patent. The basilar artery is patent. The vertebral arteries are patent. There is no significant stenosis, aneurysm, or AVM. IMPRESSION: No evidence of stenosis or major branch occlusion. Reviewed, Interpreted and Dictated by Nanda Gregorio MD Transcribed by Gilda Cabrales Authenticated and . [facility]
--- NOTE | 2025-01-17 09:02 | CT_ITS ---
FINAL REPORT TECHNIQUE: Axial imaging of the chest is obtained after the administration of contrast. 3-D MIP reformatted images were also obtained and reviewed per PE protocol. This study was performed with techniques to keep radiation doses as low as reasonably achievable, (ALARA). Individualized dose reduction techniques using automated exposure control or adjustment of mA and/or kV according to the patient's size were employed. CLINICAL HISTORY: syncope, cp FINDINGS: The pulmonary arteries are well filled. There is no evidence of pulmonary embolus. There is no aortic dissection. Heart size is normal. There is a complex right thyroid nodule. There is no mediastinal, hilar, or axillary lymphadenopathy. The lungs are clear. There is no pleural or pericardial effusion. Limited evaluation of the upper abdomen is without acute abnormality. No acute osseous abnormality. IMPRESSION: No evidence of pulmonary embolism or aortic dissection. Complex right thyroid nodule. Consider follow-up ultrasound. Reviewed, Interpreted and Dictated by Nanda Gregorio MD Transcribed by Gilda Cabrales Authenticated and [facility]
--- NOTE | 2025-01-17 09:02 | CT_ITS ---
FINAL REPORT TECHNIQUE: Thin section axial images were obtained from skull base to vertex without contrast. Coronal reconstruction images were obtained from the axial data. Exam was performed using dose reduction techniques such as automated exposure control, adjustment of the mA and kV according to patient size, and use of iterative reconstruction technique. CLINICAL HISTORY: syncope, cp FINDINGS: There is atrophy. No mass effect or midline shift. No intracranial hemorrhage. No hydrocephalus. Periventricular low density is likely related to changes of chronic small vessel ischemia. The basilar cisterns are preserved. The posterior fossa is without acute abnormality. There is mild mucoperiosteal thickening of the sphenoid sinus. No acute osseous abnormality is identified. IMPRESSION: No acute intracranial abnormality. Atrophy and changes suggesting chronic small vessel ischemia. Reviewed, Interpreted and Dictated by Nanda Gregorio MD Transcribed by Gilda Cabrales Authenticated and [facility]
--- OUTSIDE RECORDS SUMMARY | 2025-01-17 09:07 | XMS_ITS | Encounter Summary ---
Author Organization [facility] Address [address] [place] [address] Care Team Providers Care Armament Installer Name Role Phone Nolberto Streeter MD Primary Care Provider [phone] Aniya Kathleen MD Unavailable [phone] Encounter Details Date Type Department Care Team [...] Gynecology [address] [place] [id number] Anne Garland MD [address] [place] [id number] 06/07/2025 9:15 AM EST Office Visit [facility] [address] [place] [address] Triston Velasquez MD [address] [place] [address] 06/28/2025 9:30 AM EST Appointment [facility] [id number] [place] [phone] Aniya Kathleen MD [address] [facility] [address] [place] [address] documented as of this encounter Visit Diagnoses Not on filedocumented in this encounter Additional Health Concerns Assessment Noted Time A fall risk assessment has been complete d for the patient 12/04/2024 8:31 AM EDT A Body Mass Index follow-up plan has been documented for the patient 12/04/2024 9:30 AM EDT documented as of this encounter Care Teams Armament Installer Relationship Specialty Start Date End Date Nolberto Streeter MD [address] [place] [address] [address] [place], [place] [id number] PCP - General 09/28/22 Aniya Kathleen MD [id number] [place] [id number] Consulting Physician Radiation Therapy 08/05/23 documented as of this encounter
[2025-01-17] MEDS: RINGERS SOLUTION,LACTATED 500 ML 999 ML IV ×2 (09:09→12:01)
--- OUTSIDE RECORDS SUMMARY | 2025-01-17 09:09 | XMS_ITS | Encounter Summary ---
Author Organization [facility] Address [address] [place] [address] Care Team Providers Care Airline Station Agent Name Role Phone Nolberto Streeter MD Primary Care Provider [phone] Aniya Kathleen MD Unavailable [phone] Encounter Details Date Type Department Care Team (Late st Contact Info) Description 12/29/2024 Orders Only External Location [address] [place] [address] Provider, External Social History Tobacco Use Types Packs/Day Years [...] as of this encounter Functional Status * Calculated C-SSRS Risk Score (Lifetime/Recent) Answer Date of Assessment Author No Risk Indicated 12/29/2024 10:47 AM EDT Blanka ross, Fabi Akins RN * Question Answer Date of Assessment Author 1. Wish to be (Past 1 Month) No 12/29/2024 10:47 AM EDT Deejay Dennis RN 2. Non-Specific Active Suicidal Thoughts (Past 1 Month) No 12/29/2024 10:47 AM EDT Deejay Dennis RN 6. Suicidal Behavior (Lifetime) No 12/29/2024 10:47 AM EDT Deejay Dennis RN documented as of this encounter Plan of Treatment Upcoming Encounters Date Type Department Care Team (Late st Contact Info) Description 03/15/2025 8:00 AM EST Office Visit [facility] [address] [place] [address] Anne Garland MD [address] [place] [phone] 06/07/2025 9:15 AM EST Office Visit [facility] [address] [place] [address] Triston Velasquez MD [address] [place] [address] 06/28/2025 9:30 AM EST Appointment [facility] [id number] [place] [phone] Aniya Kathleen MD [address] [place] [phone] documented as of this encounter Procedures Procedure Name Priority Date/Time Associated Diagnosis Comments CT NEURO OUTSIDE IMAGES 12/29/2024 7:27 AM EDT documented in this encounter Results * CT NEURO OUTSIDE IMAGES (12/29/2024 7:27 AM EDT) Anatomical Region Laterality Modality Computed Tomogra phy 12/29/2024 7:27 AM EDT us External Provider IMG CT PROCEDURES Final Result documented in this encounter Visit Diagnoses Not on filedocumented in this encounter Additional Health Concerns Assessment Noted Time A fall risk assessment has been complete d for the patient 12/07/2024 8:48 AM EDT A Body Mass Index follow-up plan has been documented for the patient 12/04/2024 9:30 AM EDT documented as of this encounter Care Teams Airline Station Agent Relationship Specialty Start Date End Date Nolberto Streeter MD [address] [facility] [address] [place] [address] PCP - General 09/28/22 Aniya Kathleen MD [address] [place], [place] [id number] [place] [address] Consulting Physician Radiation Therapy 08/05/23 documented as of this encounter
--- OUTSIDE RECORDS SUMMARY | 2025-01-17 09:09 | XMS_ITS | Encounter Summary ---
Author Organization [facility] Address [address] [id number] Care Team Providers Care Orientation And Mobility Instructor Name Role Phone Nolberto Streeter MD Primary Care Provider [phone] Aniya Kathleen MD Unavailable [phone] Encounter Details Date Type Department Care Team (Late Contact Info) Description 09/30/2022 Lab Requisition [facility] [address] [place] [address] Anne Garland MD 800 [facility] [address] [place] [address] Other specified noninflammatory disorders of uterus Social [...] [address] [place] [address] Anne Garland MD [address] [place] [address] 06/07/2025 9:15 AM EST Office Visit [facility] [address] [place] [address] Triston Velasquez MD [address] [place] [address] 06/28/2025 9:30 AM EST Appointment [facility] Radiation [address] [id number] [place] [address] Aniya Kathleen MD 800 [facility] [address] [place] [address] documented as of this encounter Procedures Procedure Name Priority Date/Time Associated Diagnosis Comments SURGICAL PATHOLOGY CONSULT Routine 09/30/2022 10:59 AM EDT Other specified noninflammatory disorders of uterus documented in this encounter Results * Surgical Pathology Consult (09/30/2022 10:59 AM EDT) Case Report Sugical Pathology Consult Case: [id number] Authorizing Provider: Anne Garland MD Collected: 09/30/2022 1059 Ordering Location: [facility] Lab Received: 09/30/2022 1059 Pathologist: Xiomara Almonte MD Specimen: Cervix, [id number] 10/05/2022 3:42 PM EDT [facility] Final Diagnosis A. 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 Please refer to that report for the immunohistochemical results. 10/05/2022 3:42 PM EDT [facility] Clinical Information N85.8 - Other specified noninflammatory disorders of uterus [ICD-10-CM] 10/05/2022 3:42 PM EDT [facility] Gross Description A. [id number] Received along with a corresponding pathology report from [facility] is 1 slide labeled outside case: [id number] collected on 09/16/2022. 10/05/2022 3:42 PM EDT [facility] Note: A resident was involved in the service. I attest I examined the relevant preparations for the specimens and confirmed the diagnosis or interpretation. 10/05/2022 3:42 PM EDT [facility] Tissue Cervix uteri structure / Unknown 09/30/2022 10:59 AM EDT 09/30/2022 10:59 AM EDT Anne Garland MD LAB PATHOLOGY ORDERABLES Final Result [facility] [address] [place] [address] documented in this encounter Visit Diagnoses Diagnosis Other specified noninflammatory disorders of uterus documented in this encounter Additional Health Concerns Assessment Noted Time A fall risk assessment has been complete d for the patient 09/29/2022 12:27 PM EDT A Body Mass Index follow-up plan has been documented for the patient 10/05/2022 9:28 AM EDT documented as of this encounter Care Teams Orientation And Mobility Instructor Relationship Specialty Start Date End Date Nolberto Streeter MD [address] [place] [address] [address] [place] [address] PCP - General 09/28/22 Aniya Kathleen MD [address] [place] [address] [address] [place] [address] Consulting Physician Radiation Therapy 08/05/23 documented as of this encounter
--- OUTSIDE RECORDS SUMMARY | 2025-01-17 09:09 | XMS_ITS | Encounter Summary ---
Author Organization [facility] Address [address] [place] [address] Care Team Providers Care Derrick Worker Name Role Phone Nolberto Streeter MD Primary Care Provider [phone] Aniya Kathleen MD Unavailable [phone] Encounter Details Date Type Department Care Team (Late st Contact Info) Description 12/04/2024 Telephone [facility] Radiation [address] [id number] [place] [address] Aniya Kathleen MD [address] [place] [address] Social History Tobacco Use Types Packs/Day Years [...] [address] [place] [address] Anne Garland MD [address] Singer [facility] [address] [place] [address] 06/07/2025 9:15 AM EST Office Visit [facility] [address] [place] [address] Triston Velasquez MD [address] [place] [address] 06/28/2025 9:30 AM EST Appointment [facility] Radiation 800 [facility] [id number] [place] [address] Aniya Kathleen MD 800 [facility] [address] [place] [address] documented as of this encounter Visit Diagnoses Not on filedocumented in this encounter Additional Health Concerns Assessment Noted Time A fall risk assessment has been complete d for the patient 12/04/2024 8:31 AM EDT A Body Mass Index follow-up plan has been documented for the patient 12/04/2024 9:30 AM EDT documented as of this encounter Care Teams Derrick Worker Relationship Specialty Start Date End Date Nolberto Streeter MD [address] [place] [address] [address] [place] [address] PCP - General 09/28/22 Aniya Kathleen MD 800 [facility] [address] [place] [address] Consulting Physician Radiation Therapy 08/05/23 documented as of this encounter
--- OUTSIDE RECORDS SUMMARY | 2025-01-17 09:09 | XMS_ITS | Encounter Summary ---
Author Organization [facility] Address [address] [place] [address] Care Team Providers Care Trade Analyst Name Role Phone Nolberto Streeter MD Primary Care Provider [phone] Aniya Kathleen MD Unavailable [phone] Encounter Details Date Type Department Care Team (Late st Contact Info) Description 08/27/2022 Orders Only External Location 800 [place] [address] Mack Ibrahim MD [address] [place] [address] Social History Tobacco Use Types Packs/Day Years [...] Gynecology [address] [place] [address] Anne Garland MD [address] [facility] [address] [place] [address] 06/07/2025 9:15 AM EST Office Visit [facility] [address] [place] [address] Triston Velasquez MD [address] [place] [address] 06/28/2025 9:30 AM EST Appointment [facility] [address] [id number] [place] [address] Aniya Kathleen MD [address] [place] [address] documented as of this encounter [...] on filedocumented in this encounter Care Teams Trade Analyst Relationship Specialty Start Date End Date Nolberto Streeter MD [address] [place] [address] [address] [place] [address] PCP - General 09/28/22 Aniya Kathleen MD [address] [place] [address] Consulting Physician Radiation Therapy 08/05/23 documented as of this encounter
--- OUTSIDE RECORDS SUMMARY | 2025-01-17 09:09 | XMS_ITS | Encounter Summary ---
Author Organization [facility] Address [address] [place] [address] Care Team Providers Care News Librarian Name Role Phone Nolberto Streeter MD Primary Care Provider [phone] Aniya Kathleen MD Unavailable [phone] Encounter Details Date Type Department Care Team (Late st Contact Info) Description 12/29/2024 Orders Only External Location 800 [place] [address] Provider, External Social History Tobacco Use Types [...] Gynecology [address] [place] [address] Anne Garland MD [address] [place] [address] 06/07/2025 9:15 AM EST Office Visit [facility] [address] [place] [address] Triston Velasquez MD [address] [place] [address] 06/28/2025 9:30 AM EST Appointment [facility] [address] [id number] [place] [address] Aniya Kathleen MD [address] [place] [address] documented as of this encounter Procedures Procedure Name Priority Date/Time Associated Diagnosis Comments XR MSK OUTSIDE IMAGES 12/29/2024 7:29 AM EDT documented in this encounter Results * XR MSK OUTSIDE IMAGES (12/29/2024 7:29 AM EDT) Anatomical Region Laterality Modality Radiographic Radha ging 12/29/2024 7:29 AM EDT us External Provider IMG XR PROCEDURES Final Result documented in this encounter Visit Diagnoses Not on filedocumented in this encounter Additional Health Concerns Assessment Noted Time A fall risk assessment has been complete d for the patient 12/07/2024 8:48 AM EDT A Body Mass Index follow-up plan has been documented for the patient 12/04/2024 9:30 AM EDT documented as of this encounter Care Teams News Librarian Relationship Specialty Start Date End Date Nolberto Streeter MD [address] [place] [address] PCP - General 09/28/22 Aniya Kathleen MD [address] [place], [place] [address]D [place] [address] Consulting Physician Radiation Therapy 08/05/23 documented as of this encounter
--- OUTSIDE RECORDS SUMMARY | 2025-01-17 09:09 | XMS_ITS | Encounter Summary ---
Author Organization [facility] Address [address] [place] [address] Care Team Providers Care Transit Proof Machine Operator Name Role Phone Nolberto Streeter MD Primary Care Provider Aniya Kathleen MD Unavailable [phone] Encounter Details Date Type Department Care Team (Late st Contact Info) Description 12/29/2024 Orders Only External Location 800 [place] [address] Provider, External Social History Tobacco Use Types [...] [address] [address] Anne Garland MD [address] [place] [address] 06/07/2025 9:15 AM EST Office Visit [facility] [address] [place] [address] Triston Velasquez MD [address] [place] [address] 06/28/2025 9:30 AM EST Appointment [facility] [address] [id number] [place] [address] Aniya Kathleen MD [address] [place] [address] documented as of this encounter Procedures Procedure Name Priority Date/Time Associated Diagnosis Comments XR OUTSIDE IMAGES 12/29/2024 7:29 AM EDT documented in this encounter Results * XR OUTSIDE IMAGES (12/29/2024 7:29 AM EDT) Anatomical [...] documented as of this encounter Care Teams Transit Proof Machine Operator Relationship Specialty Start Date End Date Nolberto Streeter MD 430 [facility] [address] [place] [address] PCP - General 09/28/22 Aniya Kathleen MD [address] [place] [address] [address] [place] [address] Consulting Physician Radiation Therapy 08/05/23 documented as of this encounter
--- OUTSIDE RECORDS SUMMARY | 2025-01-17 09:09 | XMS_ITS | Encounter Summary ---
Author Organization [facility] Address [address] [place] [address] Care Team Providers Care Ear Machine Operator Name Role Phone Nolberto Streeter MD Primary Care Provider [phone] Aniya Kathleen MD Unavailable [phone] Encounter Details Date Type Department Care Team (Latest Contact Info) Description 12/29/2024 Travel Social History Tobacco Use Types Packs/Day [...] Month) No 12/29/2024 10:47 AM EDT Deejay Dennis, RN 6. Suicidal Behavior (Lifetime) No 12/29/2024 10:47 AM EDT Deejay Dennis, RN documented as of this encounter Plan of Treatment Upcoming Encounters Date Type Department Care Team (Late st Contact Info) Description 03/15/2025 8:00 AM EST Office Visit [facility] Gynecology [address] [place] [address] Anne Garland MD [address] Singer [facility] [address] [place] [address] 06/07/2025 9:15 AM EST Office Visit [facility] [address] [facility] [place] [address] Triston Velasquez MD 110 [facility] 550 [place] [address] 06/28/2025 9:30 AM EST Appointment [facility] Radiation [id number] [place] [address] Aniya Kathleen MD 800 [facility] [address] [place] [address] documented as of this encounter Visit Diagnoses Not on filedocumented in this encounter Additional Health Concerns Assessment Noted Time A fall risk assessment has been complete d for the patient 12/07/2024 8:48 AM EDT A Body Mass Index follow-up plan has been documented for the patient 12/04/2024 9:30 AM EDT documented as of this encounter Care Teams Ear Machine Operator Relationship Specialty Start Date End Date Nolberto Streeter MD [address] [place] [address] [address] [place] [address] PCP - General 09/28/22 Aniya Kathleen MD [id number] [place] [address] Consulting Physician Radiation Therapy 08/05/23 documented as of this encounter
--- OUTSIDE RECORDS SUMMARY | 2025-01-17 09:09 | XMS_ITS | Encounter Summary ---
Author Organization [facility] Address [address] [place] [address] Care Team Providers Care Screen Printing Stencil Preparer Name Role Phone Nolberto Streeter MD Primary Care Provider [phone] Aniya Kathleen MD Unavailable [phone] Encounter Details Date Type Department Care [...] Gynecology [address] [place] [address] Anne Garland MD [address] [place] [address] 06/07/2025 9:15 AM EST Office Visit [facility] [address] [place] [address] Triston Velasquez MD [address] [place] [address] 06/28/2025 9:30 AM EST Appointment [facility] Radiation [address] [id number] [place] [address] Aniya Kathleen MD 800 [facility] [address] [place] [address] documented as of this encounter Visit Diagnoses Not on filedocumented in this encounter Additional Health Concerns Assessment Noted Time A fall risk assessment has been complete d for the patient 12/07/2024 8:48 AM EDT A Body Mass Index follow-up plan has been documented for the patient 12/04/2024 9:30 AM EDT documented as of this encounter Care Teams Screen Printing Stencil Preparer Relationship Specialty Start Date End Date Nolberto Streeter MD [address] [place] [address] [address] [place], [place] [address] PCP - General 09/28/22 Aniya Kathleen MD [id number] [place] [address] Consulting Physician Radiation Therapy 08/05/23 documented as of this encounter
--- OUTSIDE RECORDS SUMMARY | 2025-01-17 09:09 | XMS_ITS | Encounter Summary ---
Author Organization [facility] Address [address] [place] [address] Care Team Providers Care Elevator Examiner And Adjuster Name Role Phone Nolberto Streeter MD Primary Care Provider [phone] Aniya Kathleen MD Unavailable [phone] Encounter Details Date Type Department Care Team (Late st Contact Info) Description 09/28/2022 Lab Requisition [facility] Lab [address] [place] [address] Heriberto Gupta MD [address] [facility] [address] [place] [address] Malignant neoplasm of colon, unspecified (CMS/HCC) Social [...] Not at all 09/29/2022 12:27 PM EDT Frederic Tejada Feeling down, depressed, or hopeless Not at all 09/07 12:27 PM EDT Frederic Tejada Patient Health Questionnaire-2 Score 0 09/07 12:27 PM EDT Frederic Tejada documented as of this encounter Plan of Treatment Upcoming Encounters Date Type Department Care Team (Late st Contact Info) Description 03/15/2025 8:00 AM EST Office Visit [facility] Gynecology [address] [place] [address] Anne Garland MD [address] [place] [address] 06/07/2025 9:15 AM EST Office Visit [facility] [address] [facility] [place] [address] Triston Velasquez MD 110 [facility] [address] [place] [address] 06/28/2025 9:30 AM EST Appointment [facility] Radiation [address] [id number] [place] [address] Aniya Kathleen MD [address] [place] [address] documented as of this encounter Procedures Procedure Name Priority Date/Time Associated Diagnosis Comments SURGICAL PATHOLOGY CONSULT Routine 09/28/2022 1:02 PM EDT Malignant neoplasm of colon, unspecified (CMS/HCC) documented in this encounter Results * Surgical Pathology Consult (09/28/2022 1:02 PM EDT) Case Report Sugical Pathology Consult Case: [id number] Authorizing Provider: Heriberto Gupta MD Collected: 09/28/2022 1302 Ordering Location: [facility] Lab Received: 09/28/2022 1302 Pathologist: Jose Antonio Victor MD Specimen: Colon, [id number] 10/06/2022 6:56 PM EDT [facility] Final Diagnosis ASCENDING COLON, MASS, BIOPSY (OUTSIDE: [id number]; COLLECTION: 08/27/2022): - TUBULAR ADENOMA; LOW GRADE DYSPLASIA ONLY (SEE COMMENT) 10/06/2022 6:56 PM EDT [facility] at 1856 EDT Comment The apparent impression of a mass lesion is noted. Sections reveal the presence of low grade dysplasia, harboring some villous features which may indicate an advanced polyp, but no evidence of high grade dysplasia or carcinoma. Given this discordance, the specimen may not be entirely agency service representative of the targeted lesion. 10/06/2022 6:56 PM EDT [facility] Clinical Information C18.9 - Malignant neoplasm of colon, unspecified [ICD-10-CM] 10/06/2022 6:56 PM EDT [facility] Gross Description A. [id number] Received along with a corresponding pathology report from [facility] are 1 slide labeled outside case: [id number] collected on 08/27/2022. 10/06/2022 6:56 PM EDT [facility] Note: A resident was involved in the service. I attest I examined the relevant preparations for the specimens and confirmed the diagnosis or interpretation. 10/06/2022 6:56 PM EDT [facility] Tissue Colon structure / Unknown 09/28/2022 1:02 PM EDT 09/28/2022 1:02 PM EDT Heriberto Gupta MD LAB PATHOLOGY ORDERABLES Final Result Performing Organization Address City/State/[facility] Co de Phone Number [facility] [address] [place] [address] documented in this encounter Visit Diagnoses Diagnosis Malignant neoplasm of colon, unspecified (CMS/HCC) documented in this encounter Additional Health Concerns Assessment Noted Time A fall risk assessment has been complete d for the patient 09/28/2022 8:00 AM EDT A Body Mass Index follow-up plan has been documented for the patient 10/05/2022 9:28 AM EDT documented as of this encounter Care Teams Elevator Examiner And Adjuster Relationship Specialty Start Date End Date Nolberto Streeter MD [address] [place] [address] [address] [place] [address] PCP - General 09/28/22 Aniya Kathleen MD [id number] [place] [address] Consulting Physician Radiation Therapy 08/05/23 documented as of this encounter
--- OUTSIDE RECORDS SUMMARY | 2025-01-17 09:09 | XMS_ITS | Encounter Summary ---
Author Organization [facility] Address [address] [place] [address] Care Team Providers Care Water Chemist Name Role Phone Nolberto Streeter MD Primary Care Provider [phone] Aniya Kathleen MD Unavailable [phone] Encounter Details Date Type Department Care Team (Late st Contact Info) Description 12/29/2024 Orders Only External Location [address] [place] [address] Provider, External Social History Tobacco Use Types [...] [address] [place] [address] Anne Garland MD [address] Singer [address] [place] [address] 06/07/2025 9:15 AM EST Office Visit [facility] [address] [place] [address] Triston Velasquez MD [address] [place] [address] 06/28/2025 9:30 AM EST Appointment [facility] Rad[facility] [address] [id number] [place] [address] Aniya Kathleen MD [address] [place] [address] documented as of this encounter Procedures Procedure Name Priority Date/Time Associated Diagnosis Comments CT NEURO OUTSIDE IMAGES 12/29/2024 7:24 AM EDT documented in this encounter Results * CT NEURO OUTSIDE IMAGES (12/29/2024 7:24 AM EDT) Anatomical Region Laterality Modality Computed Tomogra phy 12/29/2024 7:24 AM EDT us External Provider IMG CT [...] documented as of this encounter Care Teams Water Chemist Relationship Specialty Start Date End Date Nolberto Streeter MD [address] [facility] [address] [place] [address] PCP - General 09/28/22 Aniya Kathleen MD [address] [place], [place] [id number] [place] [address] Consulting Physician Radiation Therapy 08/05/23 documented as of this encounter
--- OUTSIDE RECORDS SUMMARY | 2025-01-17 09:10 | XMS_ITS | Clinical Summary ---
Author Organization [facility] Address [address] [place] [address] Care Team Providers Care Superintendent Menagerie Name Role Phone Nolberto Streeter MD Primary Care Provider [phone] Aniya Kathleen MD Unavailable [phone] Allergies Active Allergy Reactions Criticality Noted Date Comments Hydrochlorothiazide Dizziness,Other - pl ease document in the comment field Low 08/27/2022 Medications atenolol (Tenormin) 25 MG tablet Take 1 tablet (25 mg) by mouth 2 (two) times a day. 07/11/19 23 Active aspirin 81 MG EC tablet Take 1 tablet (81 mg) by mouth daily. Active Multiple Vitamins-Dubois als (Womens Multi Vitamin & Mineral) tablet Take 1 tablet by mouth 1 (one) time each day. Active atorvastatin (Lipitor) 20 MG tablet Take 1 tablet (20 mg) by mouth daily. Active Dorzolamide HCl-Timolol Mal PF 2-0.5 % solution INSTILL 1 TWICE DAILY INTO EACH EYE 11/22/19 Active latanoprost (Xalatan) 0.005 % ophthalmic solution Administer 1 drop into both eyes every night. 2.5 mL 3 12/30/19 24 Active Additional Information Patient not taking.Reported on 12/07/2024 ofloxacin (Ocuflox) 0.3 % ophthalmic solution Administer 1 drop into the left eye 3 (three) times a day. 10 mL 1 02/20/20 Active Additional Information Patient not taking.Reported on 12/07/2024 prednisoLONE acetate (Pred-Forte) 1 % ophthalmic suspension Administer 1 drop into the right eye 4 (four) times a day. 10 mL 3 02/20/20 Active Additional Information Patient not taking.Reported on 12/07/2024 dorzolamide-ti molol (Cosopt) 2-0.5 % ophthalmic solution Administer 1 drop into both eyes in the morning and 1 drop before bedtime. 10 mL 6 08/01/19 25 Active dorzolamide-ti molol (Cosopt) 2-0.5 % ophthalmic solution Administer 1 drop into both eyes 2 times a day. 10 mL 6 12/05/19 25 Active methocarbamol (Robaxin) 750 MG tablet Take 2 tablets by mouth 3 times a day as needed for muscle spasms for up to 7 days. 42 tablet 12/30/19 25 Active methocarbamol (Robaxin) 750 MG tablet Take 2 tablets by mouth 3 times a day as needed for muscle spasms for up to 7 days. 42 tablet 12/30/19 025 Discontinued Active Problems Problem Noted Date Diagnosed Date Primary hypertension 12/06/2022 Malignant neoplasm of overlapping sites of cervi x 11/30/2022 Cancer Staging:Clinical:FIGO Stage IIA2(cT2a2, cN0, cM0) - Signed by Anne Garland MD on 12/06/2022 Adenomatous polyp of ascending colon 10/05/2022 Overview (10/05/2022): Added automatically from request for surgery [id number] Resolved Problems Problem Noted Date Diagnosed Date Resolved Date Malignant neoplasm of cervix , unspecified site 12/09/2022 12/10/2022 Malignant neoplasm of ascending colon 09/29/2022 11/30/2022 Encounters Date Type Department Care Team Description 12/29/2024 10:19 AM EDT - 12/29/2024 3:18 PM EDT Emergency [facility] Emergency Department [address] [place] [phone] Eric Montesinos MD Other closed fracture of eleventh thoracic vertebra, initial encounter (CMS/[facility]) (Primary Dx); Fall, initial encounter Discharge Disposition: Home or Self Care 12/29/2024 Travel 12/29/2024 Orders Only External Location [address] [place] [phone] Provider, External 12/29/2024 Orders Only External Location [address] [place] [phone] Provider, External 12/29/2024 Orders Only External Location [address] [place] [phone] Provider, External 12/29/2024 Orders Only External Location [address] [place] [address] Provider, External 12/07/2024 8:29 AM EDT - 12/07/2024 11:59 PM EDT Hospital Encounter [facility] Rad[facility] [address] [address] Aniya Kathleen MD Malignant neoplasm of overlapping sites of cervix (CMS/HCC) (Primary Dx) Discharge Disposition: Still a Patient 12/07/2024 Travel 12/04/2024 8:15 AM EDT Office Visit [facility] [address] [place] [address] Triston Velasquez MD At high risk for open angle glaucoma of both eyes (Primary Dx); Pseudophakia of both eyes 12/04/2024 8:05 AM EDT Ancillary Procedure [facility] [address] [place] [address] 12/04/2024 Telephone [facility] [address] [phone] Aniya Kathleen MD 12/04/2024 Travel from [...] 6.3 oz) 12/29/2024 10:23 AM EDT Height 162.6 cm (5' 4 ) 07/06/2024 8:02 AM EST Body Mass Index 27.36 07/06/2024 8:02 AM EST Plan of Treatment Upcoming Encounters Date Type Department Care Team (Late st Contact Info) Description 03/15/2025 8:00 AM EST Office Visit [facility] Gynecology [address] [place] [address] Anne Garland MD [address] [facility] [address] [place] [phone] 06/07/2025 9:15 AM EST Office Visit [facility] [address] [place] [address] Triston Velasquez MD [address] [place] [address] 06/28/2025 9:30 AM EST Appointment [facility] [id number] [place] [address] Aniya Kathleen MD [address] [place] [address] [address] [place] [address] Health Maintenance Due Date Last Done Comments [facility]-Bone Density Scan 1950 [facility]-Medicare Annual Wellness (AWV) 1950 [facility]-Infant/Child/Adol SDOH Screenings 1950 [facility]- SDOH Screenings 1966 [facility]-Adult SDOH Screenings 1966 [facility]-Pneumococcal Vaccine: 50+ Years (1 of 2 - PCV) 12/14/1967 [facility]-Zoster Vaccines (1 of 2) 12/14/1967 [facility]-RSV Vaccine: 60+ Years or (1 - 1-dose 75+ series) 12/14/2023 UND-WMLGE-25 Vaccine (8 - Moderna risk season) 2025 05/07/2024, 03/03/2023, 02/10/2022, Additional history exists [facility]-Influenza Vaccine (#1) 2025 05/07/2024, [facility]-Depression Screening 08/17/2025 08/17/2024 [facility]-DTaP,Tdap,and Td Vaccines (2 - Td or Tdap) 07/26/2033 07/27/2023 [facility]-Obesity Intervention Completed 025, 07/31/2024, 07/16/2024, Additional history exists [facility]-Hepatitis C Screening Completed 12/29/2024 HPV Vaccines Aged Out No longer eligi [...] NECK STAT 12/29/2024 1:[address] ANGIO HEAD STAT 12/29/2024 1:[address] HEAD WO IV CONTRAST STAT 1:21 PM EDT ED HIV 1/2 ANTIBODY/ANTIGEN [...] PANEL, PLASMA STAT 12/29/2024 11:13 AM EDT XR OUTSIDE IMAGES 12/29/2024 7:2 9 AM EDT XR MSK OUTSIDE IMAGES 12/29/2024 7:[address] NEURO OUTSIDE IMAGES 12/30/19 7:[address] NEURO OUTSIDE IMAGES 12/30/19 7:24 AM EDT OCT, OPTIC NERVE - OU - BOTH EYES Routine 12/04/2024 9:24 AM EDT At high risk for open angle glaucoma of both eyes from Last 3 Months Results * CT Lumbar Spine wo IV [...] Total DLP (Dose-Length Product): 2367.61 mGy.cm (accession [id number]), 2367.61 mGy.cm (accession [id number]). Please note: The reported value represents the [...] Total DLP (Dose-Length Product): 2367.61 mGy.cm (accession [id number]),2367.61 mGy.cm (accession [id number]). Please note: The reported valuerepresents the total [...] Destini House MD on 12/29/2024 2:11 PM Eric Montesinos MD IMG CT PROCEDURES Final Res [...] Total DLP (Dose-Length Product): 2367.61 mGy.cm (accession [id number]), 2367.61 mGy.cm (accession [id number]). Please note: The reported value represents the [...] Total DLP (Dose-Length Product): 2367.61 mGy.cm (accession [id number]),2367.61 mGy.cm (accession [id number]). Please note: The reported valuerepresents the total [...] House MD on 12/29/2024 2:11 PM us Eric Montesinos MD IMG CT PROCEDURES Final Res [...] Total DLP (Dose-Length Product): 2367.61 mGy.cm (accession [id number]), 2367.61 mGy.cm (accession [id number]), 2367.61 mGy.cm (accession [id number]). Please note: The reported value represents the [...] Total DLP (Dose-Length Product): 2367.61 mGy.cm (accession [id number]),2367.61 mGy.cm (accession [id number]), 2367.61 mGy.cm (accession [id number]).Please note: The reported value represents the total [...] Urena MD on 12/29/2024 1:47 PM us Eric Montesinos MD IMG CT PROCEDURES Final Res [...] Total DLP (Dose-Length Product): 2367.61 mGy.cm (accession [id number]), 2367.61 mGy.cm (accession [id number]), 2367.61 mGy.cm (accession [id number]). Please note: The reported value represents the [...] Total DLP (Dose-Length Product): 2367.61 mGy.cm (accession [id number]),2367.61 mGy.cm (accession [id number]), 2367.61 mGy.cm (accession [id number]).Please note: The reported value represents the total [...] Urena MD on 12/29/2024 1:47 PM us Eric Montesinos MD IMG CT PROCEDURES Final Res ult * CT Angio Head (12/29/2024 1:21 PM EDT) Anatomical Region Laterality Modality Arco of Rubina Computed Tomogr aphy Impressions 12/29/2024 1:47 PM [...] Total DLP (Dose-Length Product): 2367.61 mGy.cm (accession [id number]), 2367.61 mGy.cm (accession [id number]), 2367.61 mGy.cm (accession [id number]). Please note: The reported value represents the [...] Total DLP (Dose-Length Product): 2367.61 mGy.cm (accession [id number]),2367.61 mGy.cm (accession [id number]), 2367.61 mGy.cm (accession [id number]).Please note: The reported value represents the total [...] Chris Urena MD on 12/29/2024 1:47 PM Eric Montesinos MD IM CT PROCEDURES Final Res ult * ED HIV 1/2 Antibody/Antigen Screen w/Reflex to HIV 1/2 Differentiation (12/29/2024 11:13 AM EDT) Pathologist [facility] HIV 1 & 2 Antibody/Antigen Screen Non Reactive Non Reactive 12/29/2024 12:13 PM EDT [facility] Comment:Screening for HIV 1 & 2 antibodies, and P24 antigen is NONREACTIVE. No confirmatory testing is required. Blood Venous blood specimen / Unknown Venipuncture / Unknown 12/29/2024 11:13 AM EDT 12/29/2024 11:32 AM EDT Eric Montesinos MD LAB BLOOD ORDERABLES Final Result [facility] [address] [place] [address] * Hepatitis C Antibody - ED (12/29/2024 11:13 AM EDT) Pathologist [facility] Hepatitis C Antibody Negative Negative 12/29/2024 12:10 PM EDT [facility] Blood Venous blood specimen / Unknown Venipuncture / Unknown 12/29/2024 11:13 AM EDT 12/29/2024 11:29 AM EDT Eric Montesinos MD LAB BLOOD ORDERABLES Final Result Performing Organization Address [facility]/ZIP Co de Phone Number [facility] [address] [place] [address] * (ABNORMAL) CBC w/diff (12/29/2024 11:13 AM EDT) [facility] WBC Count 5.48 3.70 - 10.30 10*3/uL LAB HEMATOLOGY METHOD 12/29/2024 11:17 AM EDT [facility] RBC Count 3.92 3.90 - 5.20 10*6/uL LAB HEMATOLOGY METHOD 12/29/2024 11:17 AM EDT [facility] HGB 11.8 11.2 - 15.7 g/dL LAB HEMATOLOGY METHOD 12/29/2024 11:17 AM EDT [facility] HCT 35.4 34.0 - 45.0 % LAB HEMATOLOGY METHOD 12/29/2024 11:17 AM EDT [facility] Platelet Count 236 155 - 369 10*3/uL LAB HEMATOLOGY METHOD 12/29/2024 11:17 AM EDT [facility] MCV 90 79 - 98 fL LAB HEMATOLOGY METHOD 12/29/2024 11:17 AM EDT [facility] MCH 30.1 26.0 - 32.0 pg LAB HEMATOLOGY METHOD 12/29/2024 11:17 AM EDT [facility] MCHC 33.3 30.7 - 35.5 g/dL LAB HEMATOLOGY METHOD 12/29/2024 11:17 AM EDT [facility] RDW 13.1 11.5 - 14.5 % LAB HEMATOLOGY METHOD 12/29/2024 11:17 AM EDT [facility] MPV 8.1(L) 8.8 - 12.5 fL LAB HEMATOLOGY METHOD 12/29/2024 11:17 AM EDT [facility] nRBC 0.0 <=0.0 per 100 WBCs LAB HEMATOLOGY METHOD 12/29/2024 11:17 AM EDT [facility] Differential Type Automated LAB HEMATOLOGY METHOD 12/29/2024 11:17 AM EDT [facility] Neutrophils % 69 % LAB HEMATOLOGY METHOD 12/29/2024 11:17 AM EDT [facility] Lymphocytes % 21 % LAB HEMATOLOGY METHOD 12/29/2024 11:17 AM EDT [facility] Monocytes % 7 % LAB HEMATOLOGY METHOD 12/29/2024 11:17 AM EDT [facility] Eosinophils % 2 % LAB HEMATOLOGY METHOD 12/29/2024 11:17 AM EDT [facility] Basophils % 1 % LAB HEMATOLOGY METHOD 12/29/2024 11:17 AM EDT [facility] Immature Granulocytes % 0 % LAB HEMATOLOGY METHOD 12/29/2024 11:17 AM EDT [facility] Neutrophils Absolute 3.81 1.60 - 6.10 10*3/uL LAB HEMATOLOGY METHOD 12/29/2024 11:17 AM EDT [facility] Lymphocytes Absolute 1.16(L) 1.20 - 3.90 10*3/uL LAB HEMATOLOGY METHOD 12/29/2024 11:17 AM EDT [facility] Monocytes Absolute 0.36 0.30 - 0.90 10*3/uL LAB HEMATOLOGY METHOD 12/29/2024 11:17 AM EDT [facility] Eosinophils Absolute 0.10 0.00 - 0.50 10*3/uL LAB HEMATOLOGY METHOD 12/29/2024 11:17 AM EDT [facility] Basophils Absolute 0.04 0.00 - 0.10 10*3/uL LAB HEMATOLOGY METHOD 12/29/2024 11:17 AM EDT [facility] Immature Granulocytes Absolute 0.01 0.00 - 0.06 10*3/uL LAB HEMATOLOGY METHOD 12/29/2024 11:17 AM EDT [facility] Blood Venous blood specimen / Unknown Venipuncture / Unknown 12/29/2024 11:13 AM EDT 12/29/2024 11:15 AM EDT Narrative [facility] - 12/29/2024 11:17 AM EDT Therapeutic decision making should be based on absolute values, rather than percentages. us Eric Montesinos MD LAB BLOOD ORDERABLES Final Result [facility] [address] [place] [address] * (ABNORMAL) CMP (12/29/2024 11:13 AM EDT) Glucose, Plasma 95 74 - 99 mg/dL 12/29/2024 11:37 AM EDT [facility] BUN, Plasma 30(H) 8 - 23 mg/dL 12/29/2024 11:37 AM EDT [facility] Creatinine, Plasma 1.25(H) 0.60 - 1.10 mg/dL 12/29/2024 11:37 AM EDT [facility] BUN/Creatinine Ratio 24 12/29/2024 11:37 AM EDT [facility] Sodium, Plasma 138 136 - 145 mmol/L 12/29/2024 11:37 AM EDT [facility] Potassium, Plasma 2.9(L) 3.6 - 4.9 mmol/L 12/29/2024 11:37 AM EDT [facility] Chloride, Plasma 98 97 - 107 mmol/L 12/29/2024 11:37 AM EDT [facility] CO2, Plasma 26 22 - 29 mmol/L 12/29/2024 11:37 AM EDT [facility] Anion Gap 14 6 - 16 mmol/L 12/29/2024 11:37 AM EDT [facility] Total Calcium, Plasma 9.8 8.9 - 10.2 mg/dL 12/29/2024 11:37 AM EDT [facility] Total Protein 7.1 6.3 - 7.9 g/dL 12/29/2024 11:37 AM EDT [facility] Albumin, Plasma 4.2 3.5 - 5.2 g/dL 12/29/2024 11:37 AM EDT [facility] AST, Plasma 22 10 - 35 U/L 12/29/2024 11:37 AM EDT [facility] ALT, Plasma 20 10 - 35 U/L 12/29/2024 11:37 AM EDT [facility] Alkaline Phosphatase, Plasma 72 46 - 142 U/L 12/29/2024 11:37 AM EDT [facility] Total Bilirubin, Plasma 0.5 0.2 - 1.1 mg/dL 12/29/2024 11:37 AM EDT [facility] eGFRcr 44.8 mL/min/1.7 3m*2 12/29/2024 11:37 AM EDT [facility] Comment:Reported eGFRcr in m L/min/1.73m2 is based the CKD-EPI 2020 equation that does not use a race coefficient. Blood Venous blood specimen / Unknown Venipuncture / Unknown 12/29/2024 11:13 AM EDT 12/29/2024 11:15 AM EDT Eric Montesinos MD LAB BLOOD ORDERABLES Final Result [facility] [address] [place] [address] * XR OUTSIDE IMAGES (12/29/2024 7:29 AM EDT) Anatomical Region Laterality Modality Radiographic Radha ging 12/29/2024 7:29 AM EDT us External Provider IMG XR PROCEDURES Final Result * XR MSK OUTSIDE IMAGES (12/29/2024 7:29 AM EDT) Anatomical Region Laterality Modality Radiographic Radha ging 12/29/2024 7:29 AM EDT us External Provider IMG XR PROCEDURES Final Result * CT NEURO OUTSIDE IMAGES (12/29/2024 7:27 AM EDT) Only the most recent of2 resultswithin the time period is included. Anatomical Region Laterality Modality Computed Tomogra phy 12/29/2024 7:27 AM EDT us External Provider IMG CT PROCEDURES Final Result * OCT, Optic Nerve - OU - [...] Final Result from Last 3 Months Insurance [facility] Advance Directives * Full Code (Latest Code Status on File) Date Activated Date Inactivated Comments 10/27/2022 11:51 AM 10/30/2022 2:28 PM Question Answer Comments Patient has decision-making capacity? Yes Care Teams Superintendent Menagerie Relationship Specialty Start Date End Date Nolberto Streeter MD [address] [place] [address] [address] [place] [address] PCP - General 09/28/22 Aniya Kathleen MD [address] [place] [address] [address] [place] [id number] Consulting Physician Radiation Therapy 08/05/23
--- OUTSIDE RECORDS SUMMARY | 2025-01-17 09:10 | XMS_ITS ---
Author Organization [facility] Address [address] [place] [address] Care Team Providers Care Phd Internship Name Role Phone Nolberto Streeter MD Primary Care Provider [phone] Aniya Kathleen MD Unavailable Active Problems Problem Noted Date Diagnosed Date Primary hypertension 12/06/2022 Malignant neoplasm of overlapping sites of cervi x 11/30/2022 Cancer Staging:Clinical:FIGO Stage IIA2(cT2a2, cN0, cM0) - Signed by Anne Garland MD on 12/06/2022 Adenomatous polyp of ascending colon 10/05/2022 Overview (10/05/2022): Added automatically from request for surgery [id number] Current Treatment and Therapy Plans No current [...] Fraction Dose Fractions Total Dose Plans Planned [id number] 12/29/2022 - 02/07/2023 220 cGy 5 ,500 cGy Reference Points Delivered PTV_55Gy 12/29/2022 - 02/07/2023 5,500 cGy Resolved Problems Problem Noted Date Diagnosed Date Resolved Date Malignant neoplasm of cervix , unspecified site 12/09/2022 12/10/2022 Malignant neoplasm of ascending colon 09/29/2022 11/30/2022
--- NOTE | 2025-01-17 09:14 | CA_ITS ---
APPROVED REPORT EXAM: Limited 2D Echocardiogram Broach Grinder: Ange Velazquez RVT Ht: 5 ft 2 in Wt: 152lbs BSA: 1.70 BP: 140/88 mmHg Indications: SYNCOPE,DIZZINESS M-Mode Dimensions RVDd 2.00 cm (0.9-2.6) LA Diam 2.76 cm (1.9-4.0) LVDd 4.21 cm (3.5-5.7) LVDs 3.00 cm (3.5-5.7) IVSd 1.28 cm (0.6-1.1) PWd 0.43 cm (0.6-1.1) EF (Teich) 55.70% FS 28.70% EDV (Teich) 79.00 mL ESV (Teich) 35.00 mL Other Information Study Quality: Fair Conclusion This is a limited TTE to evaluate for biventricular systolic function The left ventricle is normal in size. There is increased LV wall thickness. There is hyperdynamic LV systolic function. LVEF is 70%. The right ventricle is normal in size and function. Electronically signed by : Sumi Low MD 01/17/2025 14:36:21
[2025-01-17 09:16] LABS: Magnesium 1.7 mg/dl (1.6-2.3); Phosphorous 3.0 mg/dl (2.5-4.5)
[2025-01-17 09:17] LABS: Hematocrit 37.5 % (37.0-47.0); Hemoglobin 12.1 g/dL (12.2-16.2); Immature Granulocytes % 0.3 %; Mean Corpuscular HGB Conc 32.3 g/dL (31.8-35.4); Mean Corpuscular Hemoglobin 29.2 pg (27.0-31.2); Mean Corpuscular Volume 90.4 fl (81-99); Nucleated Red Blood Cells % 0 %; Platelet Count 259 K/mm3 (142-424); Red Blood Count 4.15 M/mm3 (4.20-5.40); Red Cell Distribution Width-SD 42.1 fL; White Blood Count 7.3 K/mm3 (4.8-10.8)
[2025-01-17 09:28] LABS: NT Pro Brain Natriuretic Pep. 365 pg/mL (0-450)
[2025-01-17 09:30] LABS: Troponin I < 0.01 ng/ml (0.00-0.034)
[2025-01-17 09:32] LABS: Alanine Aminotransferase 21 U/L (12-78); Albumin Level 4.6 g/dl (3.5-5.0); Albumin/Globulin Ratio 1.7 (1.1-1.8); Alkaline Phosphatase 72 U/L (38-126); Anion Gap 11.9 mEq/L (5-15); Aspartate Amino Transferase 34 U/L (14-36); Bilirubin,Total 1.0 mg/dl (0.2-1.3); Blood Urea Nitrogen 29 mg/dl (7-17); Calcium 9.9 mg/dl (8.4-10.2); Carbon Dioxide 34 mmol/L (22.0-30.0); Chloride 96 mmol/L (98-107); Creatinine Clearance Estimated 43 mL/min (50-200); Creatinine,Serum 1.20 mg/dl (0.52-1.04); Estimated Glomerular Filt Rate 44 ml/min (>60); GFR (African American) 53 ML/MIN (>60); Globulin 2.7 g/dL (1.3-3.2); Glucose 112 mg/dl (74-100); Sodium 139 mmol/L (136-145); Total Protein,Serum 7.3 g/dl (6.3-8.2)
[2025-01-17 09:42] LABS: Potassium 2.9 mmoL/L (3.5-5.1)
[2025-01-17] MEDS: 0.9 % SODIUM CHLORIDE 50 ML VIAL 100 ML IV (10:02)
[2025-01-17] MEDS: IOPAMIDOL-370 (76%);100ML BOTTLE 160 ML IV (10:02)
[2025-01-17] MEDS: SODIUM CHLORIDE 0.9% 10ML SYR (RAD ONLY) 10 ML IV (10:02)
[2025-01-17] MEDS: POTASSIUM CHLORIDE 20MEQ TAB 40 MEQ PO (10:26)
--- NOTE | 2025-01-17 11:02 | PC.NURSE ---
property supervisor contacted for bed
--- NOTE | 2025-01-17 11:22 | HMH.PHAINT1 ---
Pharmacy Intervention Comments: MEDICATION RECONCILIATION COMPLETED ON PATIENT USING EXTERNAL FILL HISTORY FROM PHARMACY. -PRICE PAYNE, RODOD
--- NOTE | 2025-01-17 11:35 | PC.NURSE ---
Patient report called to IAN Guzman.
--- NOTE | 2025-01-17 11:55 | P.CONS_ITS ---
<Statement entered by Triston Dominguez MD - 01/21/25 12:09> Patient's syncopal episode is most consistent with vasovagal syncope given prodromal symptoms, positive orthostatic vitals, and dehydration from starting hydrochlorothiazide. Low suspicion for cardiogenic syncope. Symptoms improved with IV fluid resuscitation, will hold hydrochlorothiazide and amlodipine and will follow-up with PCP for further evaluation management. Rest of plan as outlined by the NURSE ANESTHESIA PROGRAM DIRECTOR. History of Present Illness *Admission Date: 01/17/25 *Reason for visit:: passed out, low BP *History of present illness: Ms. Irby is a 74-year-old female who presented to the emergency department today with complaints of a syncopal episode. She has a primary medical history of hypertension, hyperlipidemia, and hypokalemia. Family is at bedside, patient and family state that she has been having recent episodes of syncope. She is scheduled to see a neurologist hopefully in the next few weeks. She had a previous cardiac workup in 2022 including heart cath and echo which were normal at the time. She currently does deny any chest pain, abdominal pain, shortness of breath, dizziness, lightheadedness. She states that she was recently switched from atenolol to hydrochlorothiazide for her blood pressure. She has been keeping a log of her blood pressures and they have consistently been low. [facility] Disclaimer: The information contained in this section may have been updated after the patient was seen, as this information can be updated by other users. Medical History Impacted cerumen of both ears Hearing loss COVID-19 Colon cancer Cervical cancer Adenocarcinoma in situ of cervix Cervical mass Hyperlipidemia Hypertension Surgical History History of colon resection History of colonoscopy History of cholecystectomy Family History Other No significant family history Social History Smoking Status: Never smoker alcohol intake: never substance use type: denies use current occupational status: unemployed Travel in the last 8 weeks?: None caffeine: Yes Review of Systems Constitutional Constitutional: Denies fatigue, Denies fever(s), Denies lethargy and Denies weakness Eyes Eyes: Denies blurry vision and Denies change in vision ENT Ears, Nose, Mouth, and Throat: Denies dizziness and Denies sore throat *Cardiovascular Cardiovascular: Denies chest pain, Denies dyspnea, Denies lightheadedness and Denies rapid heart rate *Respiratory Respiratory: Denies chest congestion, Denies cough and Denies dyspnea *Gastrointestinal Gastrointestinal: Denies abdominal pain, Denies heartburn, Denies loose stools, Denies nausea and Denies vomiting *Genitourinary Genitourinary: Denies difficulty voiding and Denies dysuria *Neurologic Neurologic: Denies dizziness and Denies weakness Endocrine Endocrine: Denies fatigue Exam Data for Last 24 hours Vital signs and Labs for Last 24 Hours: Temp Pulse Resp BP Pulse Ox O2 Del Method 97.7 F 98 H 15 137/85 98 Room Air 01/17/25 08:54 01/17/25 11:30 01/17/25 11:30 01/17/25 11:30 01/17/25 11:30 01/17/25 11:00 Laboratory Results - last 24 hr 01/17/25 08:50: WBC 7.3, RBC 4.15 L, Hgb 12.1 L, Hct 37.5, MCV 90.4, MCH 29.2, MCHC 32.3, RDW 12.8, Plt Count 259, MPV 9.1, Neut % (Auto) 72.5, Lymph % (Auto) 18.2, Mineral % (Auto) 7.0, Eos % (Auto) 1.5, Baso % (Auto) 0.5, Neut # (Auto) 5.3, Lymph # (Auto) 1.3, Mineral # (Auto) 0.5, Eos # (Auto) 0.1, Baso # (Auto) 0.0, Sodium 139, Potassium 2.9 L*, Chloride 96 L, Carbon Dioxide 34 H, Anion Gap 11.9, BUN 29 H, Creatinine 1.20 H, Estimated Creat Clear 43, Estimated GFR 44 L, Est GFR ( Amer) 53 L, Glucose 112 H, Calcium 9.9, Phosphorus 3.0, Magnesium 1.7, Total Bilirubin 1.0, AST 34, ALT 21, Alkaline Phosphatase 72, Troponin I < 0.01, NT-Pro-B Natriuret Pep 365, Total Protein 7.3, Albumin 4.6, Globulin 2.7, Albumin/Globulin Ratio 1.7 I & O for Last 24 hours: Intake & Output 01/14/25 01/15/25 01/16/25 01/17/25 23:59 23:59 23:59 23:59 Intake Total 500 / 500 Balance 500 / 500 Weight 68.946 kg Constitutional Constitutional: no acute distress and cooperative *Routine HEENT Exam Head: Present normocephalic Eye: Present EOMI ENT: Present mucous membranes moist *Routine Neck Exam Neck: Present supple and full ROM *Routine Respiratory Exam Respiratory: Present CTA bilaterally, able to speak in complete sentences and symmetric chest movement; Absent wheezes or crackles *Routine Cardiovascular Exam Cardiovascular: Present RRR, Normal S1, Normal S2 and murmur *Routine Abdominal Exam Abdominal: Present soft and normoactive bowel sounds; Absent tenderness or distended *Routine Extremities Exam Extremities: Present full ROM and pulses intact; Absent clubbing or edema *Routine Skin Exam Skin: Present intact and dry *Routine Neurological Exam Neurological: Present alert, oriented X3, moving all extremities, vision grossly intact, hearing grossly intact and normal speech Meds Home Medications and Allergies Home Medications ?Medication ?Instructions ?Recorded ?Confirmed ?Type aspirin 81 mg capsule 81 mg PO DAILY 08/27/2201/07 History atorvastatin 20 mg tablet 20 mg PO HS 08/27/22 5 History multivitamin (Daily Multi-Vitamin 1 tab PO DAILY 07/0301/17/25 History tablet) amlodipine 5 mg tablet 5 mg PO DAILY 12/25/2401/17 History Held on 01/17/25. Instructions: pcp f/u dorzolamide 22.3 mg-timolol 6.8 1 drp Eye-Both BID 01/17/25 History mg/mL eye drops hydrochlorothiazide 12.5 mg tablet 12.5 mg PO DAILY 01/17/25 History Held on 01/17/25. Instructions: until PCP f/u potassium chloride 20 mEq 40 meq (2 x 20 mEq) PO DAILY #14 01/17/25 Rx tablet,extended tabs release(part/cryst) (Klor-Con M) New Prescriptions to Start Prescriptions: potassium chloride [Klor-Con M20] Niki Corona Allergies Allergy/AdvReac Type Severity Reaction Status Date / Time hydrochlorothiazide Allergy Unknown SYNCOPE Verified 12/25/24 13:38 (HYDROCHLOROTHIAZIDE) Results Labs 01/17/25 08:50 01/17/25 08:50 Labs: Abnormal lab results 01/17/25 Range/Units 08:50 RBC 4.15 L (4.20-5.40) M/mm3 Hgb 12.1 L (12.2-16.2) g/dL Potassium 2.9 L* (3.5-5.1) mmoL/L Chloride 96 L (98-107) mmol/L Carbon Dioxide 34 H (22.0-30.0) mmol/L BUN 29 H (7-17) mg/dl Creatinine 1.20 H (0.52-1.04) mg/dl Estimated GFR 44 L (>60) ml/min Est GFR ( Amer) 53 L (>60) ML/MIN Glucose 112 H (74-100) mg/dl H & H 01/17/25 Range/Units 08:50 Hgb 12.1 L (12.2-16.2) g/dL Hct 37.5 (37.0-47.0) % All other labs normal. Assessment and Plan *Assessment and plan (1) Syncope: Status: Acute Category: Medical Code(s): R55 - Syncope and collapse (2) Dehydration: Status: Acute Category: Medical Code(s): E86.0 - Dehydration (3) Diuretic-induced hypokalemia: Status: Acute Category: Medical Code(s): E87.6 - Hypokalemia; T50.2X5A - Adverse effect of carbonic-anhydrase inhibitors, benzothiadiazides and other diuretics, initial encounter Plan Ms. Irby is a 74-year-old female who presented to the emergency department today with complaints of a syncopal episode. She has a primary medical history of hypertension, hyperlipidemia, and hypokalemia. Family is at bedside, patient and family state that she has been having recent episodes of syncope. She had a previous cardiac workup in 2022 including heart cath and echo which were normal at the time. She currently does deny any chest pain, abdominal pain, shortness of breath, dizziness, lightheadedness. She states that she was recently switched from atenolol to hydrochlorothiazide for her blood pressure. She has been keeping a log of her blood pressures and they have consistently been low. Blood pressure log shows blood pressures have been consistently running systolics 80-100, diastolics 40-60. After workup in the emergency department revealed positive orthostatics, patient received 1 L bolus. Hospital medicine consulted with the ED provider who discussed possible admission for syncopal episode. I came down to consult and speak with the patient. Discussed medication changes, stopping HCTZ and amlodipine. I believe this has exacerbated syncopal episodes. Patient blood pressure stable in the emergency department at time of assessment, 137/85. Patient's family states she is scheduled to see neurology and I discussed seeing cardiology. Echo currently pending. Patient CBC unremarkable, potassium low at 2.9 (replaced), kidney function slightly elevated creatinine 1.2?appears to be at baseline, troponins remain negative. CT of head, neck, and chest showed no acute findings. Incidentally noted a complex right thyroid nodule, will need follow-up with PCP for possible ultrasound. #Syncopal episode #Dehydration ? Patient orthostatic blood pressure show dehydration, 1 L bolus given in the ED. Patient's blood pressure stabilized. Patient feels well at this time. Discussed with patient the need for cardiac and PCP follow-up. Appointments made for next 01/23/2025. Advised patient to hold hydrochlorothiazide and amlodipine until follow-ups. Continue to keep blood pressure log. Patient is currently waiting on insurance approval to see neurology at [facility]. Advised patient and family to keep that appointment. Also discussed with patient and family safety considerations due to repeat episodes of syncope. #Hypokalemia ? It appears patient has been consistently hypokalemic at previous visits. Oral potassium given during visit, potassium 40 mEq daily sent to patient's pharmacy. Patient should have BMP checked at PCP follow-up. Also believe holding her HCTZ will help with potassium level.
[2025-01-17 12:09] LABS: Troponin I < 0.01 ng/ml (0.00-0.034)
== END 2025-01-17 12:52 | disposition home or self-care (01) ==
PROVIDERS: Emergency Provider Student in an Organized Health Care Education/Training Program; PCP Family Medicine
DX: R55 Syncope and collapse (principal); E86.0 Dehydration; E87.6 Hypokalemia; T50.2X5A Adverse effect of carbonic-anhydrase inhibitors, benzothiadiazides and other diuretics, initial encounter; E78.5 Hyperlipidemia, unspecified; I10 Essential (primary) hypertension
CPT/HCPCS: 70450; 70496; 70498; 71275; 80053; 83735; 83880; 84100; 84484; 85025; 93005; 93308; 96365; 96366; 99285; J7120; Q9967

== ENCOUNTER 2025-01-23 11:00 | Outpatient (CLI) | payer MEDICARE, SELFPAY ==
--- OUTSIDE RECORDS SUMMARY | 2024-12-04 08:05 | XMS_ITS | Encounter Summary ---
Author Organization [facility] Address [address] [place] [address] Care Team Providers Care Cargo Services Coordinator Name Role Phone Nolberto Streeter MD Primary Care Provider [phone] Aniya Kathleen MD Unavailable [phone] Encounter Details Date Type Department Care Team (Late st Contact Info) Description 12/04/2024 8:05 AM EDT Ancillary Procedure [facility] [address] [place] [address] Social History Tobacco Use Types Packs/Day [...] Encounters Date Type Department Care Team (Late st Contact Info) Description 01/31/2025 11:30 AM EDT Consult [place] [facility] [address], 1st [place] [address] Mikhail George MD [address] [place] [address] 03/15/2025 8:00 AM EST Office Visit [facility] [address] [place] [address] Anne Garland MD [address] [place] [address] 06/07/2025 9:15 AM EST Office Visit [facility] [address] [place] [address] Triston Velasquez MD [address] [place] [address] 06/28/2025 9:30 AM EST Appointment [facility] [id number] [place] [address] Aniya Kathleen MD [address] [place] [address] documented as of this encounter [...] documented as of this encounter Care Teams Cargo Services Coordinator Relationship Specialty Start Date End Date Nolberto Streeter MD [address] [place] [address] [address] [place] [address] PCP - General 09/28/22 Aniya Kathleen MD [address] [place] [address] [address] [place] [address] Consulting Physician Radiation Therapy 08/05/23 documented as of this encounter
--- OUTSIDE RECORDS SUMMARY | 2024-12-04 08:15 | XMS_ITS | Encounter Summary ---
Author Organization [facility] Address [address] [place] [address] Care Team Providers Care Tortilla Maker Name Role Phone Nolberto Streeter MD Primary Care Provider [phone] Aniya Kathleen MD Unavailable [phone] Reason for Visit * Reason Comments At high risk for open angle glaucoma of both eyes Encounter Details Date Type Department Care Team (Late st Contact Info) Description 12/04/2024 8:15 AM EDT Office Visit [facility] [address] [place] [address] Triston Velasquez MD [address] [address] At high risk for open [...] Info) Description 01/31/2025 11:30 AM EDT Consult [place] [facility] [address], [address] [place] [address] Mikhail George MD [address] [place] [address] 03/15/2025 8:00 AM EST Office Visit [facility] [address] [place] [address] Anne Garland MD [address] [place] [address] 06/07/2025 9:15 AM EST Office Visit [facility] [address] [place] [address] Triston Velasquez MD [address] [place] [address] 06/28/2025 9:30 AM EST Appointment [facility] [id number] [place] [address] Aniya Kathleen MD [address] [place] [address] documented as of this encounter [...] documented as of this encounter Care Teams Tortilla Maker Relationship Specialty Start Date End Date Nolberto Streeter MD 430 [facility] [address] [place] [address] PCP - General 09/28/22 Aniya Kathleen MD 800 [facility] [address] [place] [address] Consulting Physician Radiation Therapy 08/05/23 documented as of this encounter
--- OUTSIDE RECORDS SUMMARY | 2024-12-07 08:29 | XMS_ITS | Encounter Summary ---
Author Organization [facility] Address [address] [place] [address] Care Team Providers Care Cable Television Access Coordinator Name Role Phone Nolberto Streeter MD Primary Care Provider [phone] Aniya Kathleen MD Unavailable [phone] Reason for Visit * Reason Comments Follow-up Encounter Details Date Type Department Care Team (Latest Contact Info) Description 12/07/2024 8:29 AM EDT - 12/07/2024 11:59 PM EDT Hospital Encounter [facility] [id number] [place] [address] Aniya Kathleen MD [address] [place] [place] [address] Malignant neoplasm of overlapping sites [...] vaginla discharge and was seen by a applications scientist that, in the pelvic exam identified a [...] four extremities. No edema. Pelvic: Performed with bulk mail clerk. normal external genitalia, vagina shows possible post-radiation [...] Consult [place] [facility] [address] [place] [address] Mikhail George MD [address] [place] [address] 03/15/2025 8:00 AM EST Office Visit [facility] [address] [place] [address] Anne Garland MD [address] [facility] [facility] [address] [place] [address] 06/07/2025 9:15 AM EST Office Visit [facility] [address] [place] [address] Triston Velasquez MD [address] [place] [address] 06/28/2025 9:30 AM EST Appointment [facility] [id number] [place] [address] Aniya Kathleen MD [address] [place] [address] documented as of this encounter Visit Diagnoses [...] documented as of this encounter Care Teams Cable Television Access Coordinator Relationship Specialty Start Date End Date Nolberto Streeter MD 430 [facility] [address] [place] [address] PCP - General 09/28/22 Aniya Kathleen MD [address] [phone] Consulting Physician Radiation Therapy 08/05/23 documented as of this encounter
--- OUTSIDE RECORDS SUMMARY | 2024-12-29 10:19 | XMS_ITS | Encounter Summary ---
Author Organization Healthcare Address [address] [place] [id number] Care Team Providers Care Historiography Professor Name Role Phone Nolberto Streeter MD Primary Care Provider [phone] Aniya Kathleen MD Unavailable [phone] Reason for Referral * Consultation (Routine) - Authorized Specialty Diagnoses / Procedures Referred By Giana ferrer Referred To Contact Neurosurgery Diagnoses Other closed fracture of eleventh thoracic vertebra, initial encounter ([facility]) Fall, initial encounter Mario Montesinos MD [address] [place] [phone] Phone: tel: fax: Referral ID Status Reason Start Date Expiration Date Visits Requested Visits Authorized [id number] Authorized Specialty Services Required 12/29/2024 06/30/2026 1 1 Reason for Visit * Reason Comments Fall Encounter Details Date Type Department Care Team ([facility] Contact Info) Description 12/29/2024 10:19 AM EDT - 12/29/2024 3:18 PM EDT Emergency [facility] [address] [place] [address] Mario Montesinos MD [address] [place] [phone] Other closed fracture of eleventh thoracic vertebra, initial encounter ([facility]) (Primary Dx); Fall, initial encounter Discharge Disposition: Home or Self Care Social History Tobacco Use Types Packs/Day Years [...] Sign Reading Time Taken Comments Blood Pressure 134/100 12/29/2024 3:00 PM EDT Pulse 89 12/29/2024 3:00 PM EDT Temperature 36.4 C (97.6 F) 12/29/2024 2:58 PM EDT Respiratory Rate 20 12/29/2024 3:00 PM EDT Oxygen Saturation 99% 12/29/2024 3:00 PM EDT Inhaled Oxygen Concentration - - Weight 72.3 kg (159 lb 6.3 oz) 12/29/2024 10:23 AM EDT Height - - Body Mass Index 27.36 07/06/2024 8:02 AM EST documented in this encounter Functional Status * Calculated C-SSRS Risk Score (Lifetime/Recent) Answer Date of Assessment Author No Risk Indicated 12/29/2024 10:47 AM EDT Fabi Loaiza RN * Question Answer Date of Assessment Author 1. Wish to be (Past 1 Month) No 12/29/2024 10:47 AM EDT Deejay Dennis RN 2. Non-Specific Active Suicidal Thoughts (Past 1 Month) No 12/29/2024 10:47 AM EDT Deejay Dennis RN 6. Suicidal Behavior (Lifetime) No 12/29/2024 10:47 AM EDT Deejay Dennis RN documented as of this encounter Discharge Instructions * Discharge Instructions* Macy Coelho DO - 12/29/2024 3:04 PM EDT I have placed a referral to Neurosurgery Spine for the fracture of T11. This will not need surgery or bracing, but it is good for them to re-evaluate you in clinic. Your repeat CT scans here showed no bleeding in the brain. If she has any new or worsening symptoms please return. documented in this encounter Medications at Time [...] eyes every night. 2.5 mL 3 12/30/2023 methocarbamol (Robaxin) 750 MG tablet Take 2 tablets by mouth 3 times a day as needed for muscle spasms for up to 7 days. 42 tablet 12/29/2024 Multiple Vitamins-Mineral s (Womens Multi Vitamin & [...] as of this encounter Miscellaneous Notes * Consults - Brian Mccrary MD - 12/29/2024 1:27 PM EDTAssociated Order(s): IP CONSULT TO NEUROSURGERY Reason For Consult R frontal Lindy Requesting Service: ED Requested Date/Time: 12/29/2024 11:42 AM History Of Present Illness Tania Irby is a 74 y.o. female with a history of colon and cervical cancers now in remission, on ASA 81mg for varicose veins presenting with tSAH after fall from standing. She states that she stumbled on her flip-flops and fell from standing, striking her head. The fall was witnessed by her and she did not lose consciousness. She lives with her at baseline and completes all ADLs independently. She has minimal headache without other neurologic deficit. Past Medical History She has a past medical history of Cancer (CMS/HCC), Cataracts, bilateral, Glaucoma (increased eye pressure), Heartburn, abnormal cervical Pap smear, Hyperlipidemia, and Hypertension. Surgical History She has a past surgical history that includes Colonoscopy; endoscopy; Cholecystectomy; Colon surgery (12/01/2022); Cataract extraction, extracapsular w/ intraocular lens implant (Left, 02/27/2024); and Cataract extraction w/ intraocular lens implant (Right, 03/12/2024). Family History Family History[1] Social History She reports that she has never smoked. She has never been exposed to tobacco smoke. She has never used smokeless tobacco. She reports that she does not drink alcohol and does not use drugs. Medications Current Medications[2] Allergies Hydrochlorothiazide Review of Systems 14 point review of systems was performed and was negative except as noted per HPI. Neuro Exam GCS (EMV): 465 Awake, alert, oriented Follows commands appropriately Speech clear Pupils equal/reactive, EOMI CN 2-12 grossly intact No drift Strength 5/5 throughout Last Recorded Vitals Visit Vitals BP (!) 132/91 Pulse 81 Temp 36.4 ??C (97.5 ??F) (Oral) Resp 19 Wt 72.3 kg (159 lb 6.3 oz) LMP 09/30/1979 (Approximate) SpO2 98% BMI 27.36 kg/m?? OB Status Postmenopausal Smoking Status Never BSA 1.81 m?? Labs Results from last 7 days Lab Units 12/29/24 1113 SODIUM mmol/L 138 POTASSIUM mmol/L 2.9* CHLORIDE mmol/L 98 CO2 mmol/L 26 BUN mg/dL 30* CREATININE mg/dL 1.25* EGFR mL/min/1.73m*2 44.8 GLUCOSE mg/dL 95 CALCIUM mg/dL 9.8 Results from last 7 days Lab Units 12/29/24 1113 ALKALINE PHOSPHATASE U/L 72 BILIRUBIN TOTAL mg/dL 0.5 ALT U/L 20 AST U/L 22 Results from last 7 days Lab Units 12/29/24 1113 WBC 10*3/uL 5.48 HEMOGLOBIN g/dL 11.8 HEMATOCRIT % 35.4 PLATELETS 10*3/uL 236 Imaging I personally reviewed, independently interpreted, and read available radiology reports (as available) for the following studies, and with the following findings: CTH Small R frontal tSAH Assessment and Plan Tania Irby is a 74 y.o. female with a history of colon and cervical cancers now in remission, on ASA 81mg for varicose veins presenting with tSAH after fall from standing. Assessment/Plan Active Problems: There are no active Hospital Problems. - No acute neurosurgical intervention warranted at this time - Obtain repeat CTH 6 hours after initial to assess for ongoing bleeding - If bleed is stable on repeat scan, no further intervention warranted - Hold antiplatelet and anticoagulant medications for two weeks unless holding medications is strongly contraindicated - Hold DVT ppx for at least 24 hours following demonstration of stable bleed - Rest of care per primary team Thank you for allowing us to participate in the care of this patient. Please call if you have any further questions or concerns. Brian Mccrary MD Resident Physician, PGY-2 Department of Neurosurgery [facility] [1] No family history on file. [2] No current facility-administered medications for this encounter. Current Outpatient Medications Medication Sig Dispense Refill aspirin 81 MG EC tablet Take 1 tablet (81 mg) by mouth daily. atenolol (Tenormin) 25 MG tablet Take 1 tablet (25 mg) by mouth 2 (two) times a day. atorvastatin (Lipitor) 20 MG tablet Take 1 tablet (20 mg) by mouth daily. Dorzolamide HCl-Timolol Mal PF 2-0.5 % solution INSTILL 1 TWICE DAILY INTO EACH EYE (Patient not taking: Reported on 12/07/2024) dorzolamide-timolol (Cosopt) 2-0.5 % ophthalmic solution Administer 1 drop into both eyes in the morning and 1 drop before bedtime. 10 mL 6 dorzolamide-timolol (Cosopt) 2-0.5 % ophthalmic solution Administer 1 drop into both eyes 2 times aday. 10 mL 6 latanoprost (Xalatan) 0.005 % ophthalmic solution Administer 1 drop into both eyes every night. (Patient not taking: Reported on 12/07/2024) 2.5 mL 3 Multiple Vitamins-Minerals (Womens Multi Vitamin & Mineral) tablet Take 1 tablet by mouth 1 (one) time each day. ofloxacin (Ocuflox) 0.3 % ophthalmic solution Administer 1 drop into the left eye 3 (three) times aday. (Patient not taking: Reported on 12/07/2024) 10 mL 1 prednisoLONE acetate (Pred-Forte) 1 % ophthalmic suspension Administer 1 drop into the right eye 4 (four) times a day. (Patient not taking: Reported on 12/07/2024) 10 mL 3 Cosigned by Jose Lord MD at 12/30/2024 8:20 AM EDT Associated attestation - Jose Lord MD - 12/30/2024 8:20 AM EDT I discussed the case with the resident/fellow and agree with the findings and plan as documented. * ED Provider Notes - Macy Coelho DO - 12/29/2024 10:19 AM EDT Images from the original note were not included. - HPI Chief Complaint Patient presents with Fall This is a 74-year-old female patient, with past medical history of hypertension as well as daily aspirin use, who is presenting to the emergency department today for evaluation of a subarachnoid hemorrhage diagnosed at outside hospital. The patient was reportedly walking in the bathroom this morning when she tripped and fell backwards and struck her head on the ground. This was a mechanical fall.No presyncopal event. She did not lose consciousness. She was taken to an outside hospital and theyperformed a CT scan of the head and the C- spine found a frontal subarachnoid hemorrhage. She was administered but he Keppra. They did not have access to DDAVP. She was transferred here in stable condition. She has remained at her baseline mental status with no neurologic deficits since the fall. Patient History Past Medical History[1] Surgical History[2] Family History[3] Social History[4] Allergies: Allergies[5] Physical Exam ED Triage Vitals [12/29/24 1026] Temp Heart Rate Resp BP 36.4 ??C (97.5 ??F) 81 19 (!) 132/91 SpO2 Temp Source Heart Rate Source Patient Position 98 % Oral -- -- BP Location FiO2 (%) -- -- Physical Exam Constitutional: General: She is not in acute distress. Appearance: Normal appearance. HENT: Head: Normocephalic and atraumatic. Right Ear: External ear normal. Left Ear: External ear normal. Nose: Nose normal. Mouth/Throat: Mouth: Mucous membranes are moist. Eyes: Extraocular Movements: Extraocular movements intact. Pupils: Pupils are equal, round, and reactive to light. Cardiovascular: Rate and Rhythm: Normal rate and regular rhythm. Pulmonary: Effort: Pulmonary effort is normal. Comments: No respiratory distress Abdominal: General: Abdomen is flat. Palpations: Abdomen is soft. Tenderness: There is no abdominal tenderness. Musculoskeletal: General: No swelling or deformity. Normal range of motion. Cervical back: Normal range of motion and neck supple. Skin: General: Skin is warm and dry. Capillary Refill: Capillary refill takes less than 2 seconds. Neurological: General: No focal deficit present. Mental Status: She is alert and oriented to person, place, and time. EASI ?? Total Score: 0 Annabel Coma Scale Score: 15 TRST Assessment Total: 3 ED Course & MDM - Assessment: 74 y.o. female presents to ED with complaint of a SAH hemorrhage found on CT scan at OSH. It shouldbe noted that the chronic conditions includes HTN and daily aspirin use, which currently is at goaltherapy. This complicates the clinical picture because it Comorbidities: may be exacerbating symptoms and increases the risk for morbidity On initial evaluation of the patient they were resting comfortably in no acute distress and nontoxic in appearance. They are hemodynamically stable, saturating well on room air, and are neurologically intact. On physical examination of the patient she does not have any overt signs of traumatic injury. No deformities of the extremities. No midface instability or jaw malocclusion. No scalp lacerations, hematomas, or abrasions. No cervical spine tenderness. She does have thoracic and lumbar spine tenderness. No tenderness of the chest wall or abdominal wall. Differential Diagnosis: Subarachnoid hemorrhage, epidural hemorrhage, thoracic spine fracture, lumbar spine fracture, among others. In order to fully explore the differential diagnosis the following treatments and tests were ordered: ED Medication Administration from 12/29/2024 0832 to 12/29/2024 1506 Date/Time Order Dose Route Action 12/29/2024 1303 EDT iohexol (OMNIPaque) 350 MG/ML injection 100 mL 60 mL Intravenous Given 12/29/2024 1313 EDT potassium chloride CR (Klor-Con) ER tablet 40 mEq 40 mEq Oral Given All Other Orders Ordered Status Ordering Provider 12/29/24 1326 Inpatient consult to Neurosurgery Once Specialty: Neurosurgery Provider: (Not yet assigned) Completed BRIAN MCCRARY 12/29/[address] Head wo IV Contrast Once Final result MARIO MONTESINOS 12/29/[address] Angio Head Once Final result MARIO MONTESINOS 12/29/[address] Angio Neck Once Final result MARIO MONTESINOS 12/29/[address] Thoracic Spine wo IV Contrast Once Final result MARIO MONTESINOS 12/29/[address] Lumbar Spine wo IV Contrast Once Final result MARIO MONTESINOS 12/29/24 1107 CMP STAT Final result MARIO MONTESINOS 12/29/24 1107 CBC w/diff STAT Final result MARIO MONTESINOS 12/29/24 1107 Hepatitis C Antibody - ED Once Final result MARIO MONTESINOS 12/29/24 1107 ED Protocol - HIV 1/2 Antibody/Antigen Screen Once Final result MARIO MONTESINOS 12/29/24 1107 ED HIV 1/2 Antibody/Antigen Screen w/Reflex to HIV 1/2 Differentiation PROCEDURE ONCE Final result MARIO MONTESINOS 12/29/24 1503 Discharge Ambulatory referral to Neurosurgery Ordered MACY COELHO Workup was initiated with hematologic labs as well as CT scans of the head, CTA of the head and neck, and CT of the thoracic spine and lumbar spine without contrast. Labs personally interpreted by me are significant for hypokalemia. We have administered 40 mEq of potassium chloride at this time. CT scans of the head resulted showing no evidence of subarachnoid hemorrhage. I had an interactive discussion with the radiologist who stated that he reviewed scans were in the outside hospital as well as him here and he does not see a subarachnoid hemorrhage on either. He is confident that there was no subarachnoid hemorrhage on this scan CT scans of the spines do show an inferior endplate fracture of T11 with no vertebral height loss. There was also a right L1 transverse process fracture. These are in the region of the patient's tenderness. I do not feel that this will need any bracing or surgery. She has no neurologic deficits on exam. I have informed the patient's family and the patient of her results. I have placed a referral to Neurosurgery spine for follow up in clinic. At this time all questions have been answered and all parties are agreeable with the decision to discharge home. Clinical Impressions as of 12/29/24 1506 Other closed fracture of eleventh thoracic vertebra, initial encounter ([facility]) Fall, initial encounter Social Determinates of Health Risks (including Economic Stability, Education and level of understanding, Healthcare access and quality and concerning social factors): None identified on this visit Ultimately, this patient was Was discharged Home (Discharge) The primary encounter diagnosis was Other closed fracture of eleventh thoracic vertebra, initial encounter ([facility]). A diagnosis of Fall, initial encounter was also pertinent to this visit. . Patient was counseled on the diagnoses. Discharge medications if any are listed below. Listed medications are thought be either curative for listed diagnoses or will help control ongoing symptoms. Patient is requested to follow up with Neurosurgery in order to obtain specialty care. Instructions on follow up as well as precautions to return to the ER provided verbally by the EM provider, as well as written in patients discharge education packet. ED Prescriptions Medication Sig Dispense Start Date End Date Auth. Provider methocarbamol (Robaxin) 750 MG tablet Take 2 tablets by mouth 3 times a day as needed for muscle spasms for up to 7 days. 42 tablet 12/29/2024 01/05/2025 Macy Coelho, DO Discharge Instructions I have placed a referral to Neurosurgery Spine for the fracture of T11. This will not need surgery or bracing, but it is good for them to re-evaluate you in clinic. Your repeat CT scans here showed no bleeding in the brain. If she has any new or worsening symptoms please return. Disposition Discharge Discharge Orders Discharge Ambulatory referral to Neurosurgery Authorized - [1] Past Medical History: Diagnosis Date Cancer (CMS/HCC) cervical dx 11/28; going through chemo and radiation currenlt Cataracts, bilateral Glaucoma (increased eye pressure) Heartburn Hx of abnormal cervical Pap smear Hyperlipidemia Hypertension [2] Past Surgical History: Procedure Laterality Date CATARACT EXTRACTION EXTRACAPSULAR W/ INTRAOCULAR LENS IMPLANTATION Left 02/27/2024 CATARACT EXTRACTION W/ INTRAOCULAR LENS IMPLANT Right 03/12/2024 CHOLECYSTECTOMY COLON SURGERY 12/01/2022 COLONOSCOPY ENDOSCOPY GI biopsy [3] No family history on file. [4] Tobacco Use Smoking status: Never Passive exposure: Never Smokeless tobacco: Never Vaping Use Vaping status: Never Used Substance Use Topics Alcohol use: Never Drug use: Never [5] Allergies Allergen Reactions Hydrochlorothiazide Dizziness and Other - please document in the comment field Macy Coelho DO Resident 12/29/24 1506 Cosigned by Mario Montesinos MD at 01/03/2025 8:28 PM EDT Associated attestation - Mario Montesinos MD - 01/03/2025 8:28 PM EDT I saw and evaluated the patient with the resident/fellow. I discussed the case with the resident/fellow and agree with the findings and plan as documented. * ED Triage Notes - Gi Stevenson RN - 12/29/2024 10:19 AM EDT Patient had fall from standing around 0300, 3.5mm SAH on OSH scans. Pt takes aspirin. GCS 15. Ecqxi4e keppra and 10mg labetolol at osh. Also has right rib fx from fall 2 weeks ago. documented in this encounter Plan of Treatment Upcoming Encounters Date Type Department Care Team (Late st Contact Info) Description 01/31/2025 11:30 AM EDT Consult [facility] [address] [place] [address] Mikhail George MD [address] [place] [address] 03/15/2025 8:00 AM EST Office Visit [facility] [address] [place] [phone] Anne Garland MD [address] [facility] [address] [place] [phone] 06/07/2025 9:15 AM EST Office Visit [facility] [address] [place] [address] Triston Velasquez MD [address] [place] [phone] 06/28/2025 9:30 AM EST Appointment [facility] [address] [place] [phone] Aniya Kathleen MD [address] [place] [phone] Scheduled Referrals Name Type Priority Associated Diagnoses Order Schedule Discharge Ambulatory referral to Neurosurgery Outpatient Referral Routine Other closed fracture of eleventh thoracic vertebra, initial encounter ([facility]) Fall, initial encounter Expected: 12/29/2024 (Approximate), Expires: 07/02/2026 documented as of this encounter Procedures Procedure Name Priority Date/Time Associated Diagnosis Comments CT LUMBAR SPINE WO IV CONTRAST STAT 12/29/2024 1:[address] THORACIC SPINE WO IV CONTRAST STAT 12/29/2024 1:[address] ANGIO NECK STAT 12/29/2024 1:[address] HEAD WO IV CONTRAST STAT 1:[address] ANGIO HEAD STAT 12/29/2024 1:21 PM EDT ED HIV 1/2 ANTIBODY/ANTIGEN SCREEN WITH REFLEX TO HIV I/II DIFFERENTIATION STAT 12/29/2024 11:13 AM EDT ED PROTOCOL HIV 1/2 ANTIBODY/ANTIGEN SCREEN W/REFLEX TO HIV 1/2 ANTIBODY DIFFERENTIATION STAT 12/29/2024 11:13 AM EDT HEPATITIS C ANTIBODY - ED W/REFLEX TO HCV QUANT PCR STAT 12/29/2024 11:13 AM EDT CBC WITH AUTO DIFFERENTIAL STAT 12/29/2024 11:13 AM EDT COMPREHENSIVE METABOLIC PANEL, PLASMA STAT 12/29/2024 11:13 AM EDT documented in this encounter Results * CT Lumbar Spine wo IV Contrast (12/29/2024 1:21 PM EDT) Anatomical Region Laterality Modality Spine, L-spine Computed Tomogra phy Impressions 12/29/2024 2:11 PM EDT 2. fracture of the inferior endplate of T11 with no appreciable loss of vertebral height. Degenerative changes seen throughout the thoracic spine 3. There is fracture of the right L1 transverse process CRITICAL RESULT: No. COMMUNICATION: Per this written report. Drafted by Destini House MD on 12/29/2024 1:57 PM Final report signed by Destini House MD on 12/29/2024 2:11 PM Narrative 12/29/2024 2:11 PM EDT CLINICAL INDICATION: Fall, mid and low back pain TECHNIQUE: Contiguous axial CT images of the entire thoracic spine were reformatted from a CT of the chest/aorta. Reconstructed images in the coronal and sagittal planes were generated from the axial data set to facilitate diagnostic accuracy and/or surgical planning. Contiguous axial CT images of the entire lumbar spine were reformatted from a CT of the abdomen and pelvis. Reconstructed images in the coronal and sagittal planes were generated from the axial data set to facilitate diagnostic accuracy and/or surgical planning. Total DLP (Dose-Length Product): 2367.61 mGy.cm (accession [id number]), 2367.61 mGy.cm (accession [id number]). Please note: The reported value represents the total of one or more individual components during the CT acquisition on this date and at this time, and as such, the same value may appear in more than one CT report depending on the interpreting/reporting physicians. COMPARISON: None. FINDINGS: Thoracic Spine: Vertebrae: Subtle fracture of the anterior inferior T11 vertebrae best appreciated on coronal reconstructed image 41 of series 602. Alignment: Normal spinal alignment. Paraspinal Soft Tissues: Please see report for CT Chest/Aorta for soft tissue findings. Lumbar Spine: Vertebrae: There is fracture of the right L1 transverse process. It Is nondisplaced.. Alignment: Normal spinal alignment. Paraspinal Soft Tissues: Please see report for CT Abdomen and Pelvis for soft tissue findings. Procedure Note Destini House MD - 12/29/2024 CLINICAL INDICATION: Fall, mid and low back pain TECHNIQUE: Contiguous axial CT images of the entire thoracic spine were reformattedfrom a CT of the chest/aorta. Reconstructed images in the coronal andsagittal planes were generated from the axial data set to facilitatediagnostic accuracy and/or surgical planning. Contiguous axial CT images of the entire lumbar spine were reformattedfrom a CT of the abdomen and pelvis. Reconstructed images in the coronaland sagittal planes were generated from the axial data set to facilitatediagnostic accuracy and/or surgical planning. Total DLP (Dose-Length Product): 2367.61 mGy.cm (accession [id number]),2367.61 mGy.cm (accession [id number]). Please note: The reported valuerepresents the total of one or more individual components during the CTacquisition on this date and at this time, and as such, the same value mayappear in more than one CT report depending on the interpreting/reportingphysicians. COMPARISON: None. FINDINGS: Thoracic Spine: Vertebrae: Subtle fracture of the anterior inferior T11 vertebrae bestappreciated on coronal reconstructed image 41 of series 602. Alignment: Normal spinal alignment. Paraspinal Soft Tissues: Please see report for CT Chest/Aorta for softtissue findings. Lumbar Spine: Vertebrae: There is fracture of the right L1 transverse process. It Isnondisplaced.. Alignment: Normal spinal alignment. Paraspinal Soft Tissues: Please see report for CT Abdomen and Pelvis forsoft tissue findings. IMPRESSION: 2. fracture of the inferior endplate of T11 with no appreciable loss ofvertebral height. Degenerative changes seen throughout the thoracicspine 3. There is fracture of the right L1 transverse process CRITICAL RESULT: No. COMMUNICATION: Per this written report. Drafted by Destini House MD on 12/29/2024 1:57 PM Final report signed by Destini House MD on 12/29/2024 2:11 PM Mario Montesinos MD IMG CT PROCEDURES Final Res ult * CT Thoracic Spine wo IV Contrast (12/29/2024 1:21 PM EDT) Anatomical Region Laterality Modality Spine, T-spine Computed Tomogra phy Impressions 12/29/2024 2:11 PM EDT 2. fracture of the inferior endplate of T11 with no appreciable loss of vertebral height. Degenerative changes seen throughout the thoracic spine 3. There is fracture of the right L1 transverse process CRITICAL RESULT: No. COMMUNICATION: Per this written report. Drafted by Destini House MD on 12/29/2024 1:57 PM Final report signed by Destini House MD on 12/29/2024 2:11 PM Narrative 12/29/2024 2:11 PM EDT CLINICAL INDICATION: Fall, mid and low back pain TECHNIQUE: Contiguous axial CT images of the entire thoracic spine were reformatted from a CT of the chest/aorta. Reconstructed images in the coronal and sagittal planes were generated from the axial data set to facilitate diagnostic accuracy and/or surgical planning. Contiguous axial CT images of the entire lumbar spine were reformatted from a CT of the abdomen and pelvis. Reconstructed images in the coronal and sagittal planes were generated from the axial data set to facilitate diagnostic accuracy and/or surgical planning. Total DLP (Dose-Length Product): 2367.61 mGy.cm (accession [id number]), 2367.61 mGy.cm (accession [id number]). Please note: The reported value represents the total of one or more individual components during the CT acquisition on this date and at this time, and as such, the same value may appear in more than one CT report depending on the interpreting/reporting physicians. COMPARISON: None. FINDINGS: Thoracic Spine: Vertebrae: Subtle fracture of the anterior inferior T11 vertebrae best appreciated on coronal reconstructed image 41 of series 602. Alignment: Normal spinal alignment. Paraspinal Soft Tissues: Please see report for CT Chest/Aorta for soft tissue findings. Lumbar Spine: Vertebrae: There is fracture of the right L1 transverse process. It Is nondisplaced.. Alignment: Normal spinal alignment. Paraspinal Soft Tissues: Please see report for CT Abdomen and Pelvis for soft tissue findings. Procedure Note Destini House MD - 12/29/2024 CLINICAL INDICATION: Fall, mid and low back pain TECHNIQUE: Contiguous axial CT images of the entire thoracic spine were reformattedfrom a CT of the chest/aorta. Reconstructed images in the coronal andsagittal planes were generated from the axial data set to facilitatediagnostic accuracy and/or surgical planning. Contiguous axial CT images of the entire lumbar spine were reformattedfrom a CT of the abdomen and pelvis. Reconstructed images in the coronaland sagittal planes were generated from the axial data set to facilitatediagnostic accuracy and/or surgical planning. Total DLP (Dose-Length Product): 2367.61 mGy.cm (accession [id number]),2367.61 mGy.cm (accession [id number]). Please note: The reported valuerepresents the total of one or more individual components during the CTacquisition on this date and at this time, and as such, the same value mayappear in more than one CT report depending on the interpreting/reportingphysicians. COMPARISON: None. FINDINGS: Thoracic Spine: Vertebrae: Subtle fracture of the anterior inferior T11 vertebrae bestappreciated on coronal reconstructed image 41 of series 602. Alignment: Normal spinal alignment. Paraspinal Soft Tissues: Please see report for CT Chest/Aorta for softtissue findings. Lumbar Spine: Vertebrae: There is fracture of the right L1 transverse process. It Isnondisplaced.. Alignment: Normal spinal alignment. Paraspinal Soft Tissues: Please see report for CT Abdomen and Pelvis forsoft tissue findings. IMPRESSION: 2. fracture of the inferior endplate of T11 with no appreciable loss ofvertebral height. Degenerative changes seen throughout the thoracicspine 3. There is fracture of the right L1 transverse process CRITICAL RESULT: No. COMMUNICATION: Per this written report. Drafted by Destini House MD on 12/29/2024 1:57 PM Final report signed by Destini House MD on 12/29/2024 2:11 PM us Mario Montesinos MD IMG CT PROCEDURES Final Res ult * CT Angio Neck (12/29/2024 1:21 PM EDT) Anatomical Region Laterality Modality Carotid Artery Computed Tomogra phy Impressions 12/29/2024 1:47 PM EDT 1. No acute intracranial abnormality. 2. CTA of the head and neck without evidence of acute extracranial or intracranial arterial injury. 3. Appearance of thyroid as above, consider follow-up sonography if not previously evaluated. CRITICAL RESULT: No. COMMUNICATION: Per this written report. Drafted by Chris Urena MD on 12/29/2024 1:29 PM Final report signed by Chris Urena MD on 12/29/2024 1:47 PM Narrative 12/29/2024 1:47 PM EDT CLINICAL INDICATION: Fall this AM, 3.7 mm SAH on OSH scan TECHNIQUE: Routine contiguous axial CT images of the head were obtained without contrast administration. Contrast-enhanced CT angiogram of the head and neck was obtained after administration of intravenous iodinated contrast using 0.6 mm axial slice thickness with multiplanar reformations and maximum intensity projections. In addition, 3D images were created and reviewed. AI Utilization: None Total DLP (Dose-Length Product): 2367.61 mGy.cm (accession [id number]), 2367.61 mGy.cm (accession [id number]), 2367.61 mGy.cm (accession [id number]). Please note: The reported value represents the total of one or more individual components during the CT acquisition on this date and at this time, and as such, the same value may appear in more than one CT report depending on the interpreting/reporting physicians. COMPARISON: Outside CT of the head obtained at 0724 this morning. FINDINGS: CT Head without: The CSF spaces appear clear, there is no midline shift, or attenuation of the basilar cisterns. Chronic appearing cerebral and cerebellar volume loss. Nonspecific calcifications within the right lentiform nucleus. No evidence of acute large territory infarct. No appreciable acute hemorrhage. Calvarium and skull base without acute findings. Mastoids, middle ear cavities, paranasal sinuses aerated. Extracranial soft tissues without acute findings. CTA Head: There is normal vascular anatomy. There is no evidence of vascular injury, specifically no significant arterial stenosis, occlusion, dissection, or pseudoaneurysm. The intracranial venous structures are also fairly well opacified and appear patent. 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 CTA Neck: There is normal vascular anatomy. There is no evidence of vascular injury, specifically no significant arterial stenosis, occlusion, dissection, or pseudoaneurysm. There is 0% stenosis of the ICA origins by NASCET criteria. Tortuous LICA, and vertebral arteries. Heterogeneous right lobe of thyroid, with internal calcifications, and 2.3 cm right lower pole heterogeneous nodule. Procedure Note Chris Urena MD - 12/29/2024 CLINICAL INDICATION: Fall this AM, 3.7 mm SAH on OSH scan TECHNIQUE: Routine contiguous axial CT images of the head were obtained withoutcontrast administration. Contrast-enhanced CT angiogram of the head and neck was obtained afteradministration of intravenous iodinated contrast using 0.6 mm axial slicethickness with multiplanar reformations and maximum intensity projections.In addition, 3D images were created and reviewed. AI Utilization: None Total DLP (Dose-Length Product): 2367.61 mGy.cm (accession [id number]),2367.61 mGy.cm (accession [id number]), 2367.61 mGy.cm (accession [id number]).Please note: The reported value represents the total of one or moreindividual components during the CT acquisition on this date and at thistime, and as such, the same value may appear in more than one CT reportdepending on the interpreting/reporting physicians. COMPARISON: Outside CT of the head obtained at 0724 this morning. FINDINGS: CT Head without: The CSF spaces appear clear, there is no midline shift, or attenuation ofthe basilar cisterns. Chronic appearing cerebral and cerebellar volume loss. Nonspecific calcifications within the right lentiform nucleus. No evidence of acute large territory infarct. No appreciable acute hemorrhage. Calvarium and skull base without acute findings. Mastoids, middle ear cavities, paranasal sinuses aerated. Extracranial soft tissues without acute findings. CTA Head: There is normal vascular anatomy. There is no evidence of vascular injury,specifically no significant arterial stenosis, occlusion, dissection, orpseudoaneurysm. The intracranial venous structures are also fairly wellopacified and appear patent. 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 CTA Neck: There is normal vascular anatomy. There is no evidence of vascular injury,specifically no significant arterial stenosis, occlusion, dissection, orpseudoaneurysm. There is 0% stenosis of the ICA origins by NASCETcriteria. Tortuous LICA, and vertebral arteries. Heterogeneous right lobe of thyroid, with internal calcifications, and 2.3cm right lower pole heterogeneous nodule. IMPRESSION: 1. No acute intracranial abnormality. 2. CTA of the head and neck without evidence of acute extracranial orintracranial arterial injury. 3. Appearance of thyroid as above, consider follow-up sonography if notpreviously evaluated. CRITICAL RESULT: No. COMMUNICATION: Per this written report. Drafted by Chris Urena MD on 12/29/2024 1:29 PM Final report signed by Chris Urena MD on 12/29/2024 1:47 PM Mario Montesinos MD IMG CT PROCEDURES Final Res ult * CT Angio Head (12/29/2024 1:21 PM EDT) Anatomical Region Laterality Modality [place] Computed Tomogr aphy Impressions 12/29/2024 1:47 PM EDT 1. No acute intracranial abnormality. 2. CTA of the head and neck without evidence of acute extracranial or intracranial arterial injury. 3. Appearance of thyroid as above, consider follow-up sonography if not previously evaluated. CRITICAL RESULT: No. COMMUNICATION: Per this written report. Drafted by Chris Urena MD on 12/29/2024 1:29 PM Final report signed by Chris Urena MD on 12/29/2024 1:47 PM Narrative 12/29/2024 1:47 PM EDT CLINICAL INDICATION: Fall this AM, 3.7 mm SAH on OSH scan TECHNIQUE: Routine contiguous axial CT images of the head were obtained without contrast administration. Contrast-enhanced CT angiogram of the head and neck was obtained after administration of intravenous iodinated contrast using 0.6 mm axial slice thickness with multiplanar reformations and maximum intensity projections. In addition, 3D images were created and reviewed. AI Utilization: None Total DLP (Dose-Length Product): 2367.61 mGy.cm (accession [id number]), 2367.61 mGy.cm (accession [id number]), 2367.61 mGy.cm (accession [id number]). Please note: The reported value represents the total of one or more individual components during the CT acquisition on this date and at this time, and as such, the same value may appear in more than one CT report depending on the interpreting/reporting physicians. COMPARISON: Outside CT of the head obtained at 0724 this morning. FINDINGS: CT Head without: The CSF spaces appear clear, there is no midline shift, or attenuation of the basilar cisterns. Chronic appearing cerebral and cerebellar volume loss. Nonspecific calcifications within the right lentiform nucleus. No evidence of acute large territory infarct. No appreciable acute hemorrhage. Calvarium and skull base without acute findings. Mastoids, middle ear cavities, paranasal sinuses aerated. Extracranial soft tissues without acute findings. CTA Head: There is normal vascular anatomy. There is no evidence of vascular injury, specifically no significant arterial stenosis, occlusion, dissection, or pseudoaneurysm. The intracranial venous structures are also fairly well opacified and appear patent. 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 CTA Neck: There is normal vascular anatomy. There is no evidence of vascular injury, specifically no significant arterial stenosis, occlusion, dissection, or pseudoaneurysm. There is 0% stenosis of the ICA origins by NASCET criteria. Tortuous LICA, and vertebral arteries. Heterogeneous right lobe of thyroid, with internal calcifications, and 2.3 cm right lower pole heterogeneous nodule. Procedure Note Chris Urena MD - 12/29/2024 CLINICAL INDICATION: Fall this AM, 3.7 mm SAH on OSH scan TECHNIQUE: Routine contiguous axial CT images of the head were obtained withoutcontrast administration. Contrast-enhanced CT angiogram of the head and neck was obtained afteradministration of intravenous iodinated contrast using 0.6 mm axial slicethickness with multiplanar reformations and maximum intensity projections.In addition, 3D images were created and reviewed. AI Utilization: None Total DLP (Dose-Length Product): 2367.61 mGy.cm (accession [id number]),2367.61 mGy.cm (accession [id number]), 2367.61 mGy.cm (accession [id number]).Please note: The reported value represents the total of one or moreindividual components during the CT acquisition on this date and at thistime, and as such, the same value may appear in more than one CT reportdepending on the interpreting/reporting physicians. COMPARISON: Outside CT of the head obtained at 0724 this morning. FINDINGS: CT Head without: The CSF spaces appear clear, there is no midline shift, or attenuation ofthe basilar cisterns. Chronic appearing cerebral and cerebellar volume loss. Nonspecific calcifications within the right lentiform nucleus. No evidence of acute large territory infarct. No appreciable acute hemorrhage. Calvarium and skull base without acute findings. Mastoids, middle ear cavities, paranasal sinuses aerated. Extracranial soft tissues without acute findings. CTA Head: There is normal vascular anatomy. There is no evidence of vascular injury,specifically no significant arterial stenosis, occlusion, dissection, orpseudoaneurysm. The intracranial venous structures are also fairly wellopacified and appear patent. 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 CTA Neck: There is normal vascular anatomy. There is no evidence of vascular injury,specifically no significant arterial stenosis, occlusion, dissection, orpseudoaneurysm. There is 0% stenosis of the ICA origins by NASCETcriteria. Tortuous LICA, and vertebral arteries. Heterogeneous right lobe of thyroid, with internal calcifications, and 2.3cm right lower pole heterogeneous nodule. IMPRESSION: 1. No acute intracranial abnormality. 2. CTA of the head and neck without evidence of acute extracranial orintracranial arterial injury. 3. Appearance of thyroid as above, consider follow-up sonography if notpreviously evaluated. CRITICAL RESULT: No. COMMUNICATION: Per this written report. Drafted by Chris Urena MD on 12/29/2024 1:29 PM Final report signed by Chris Urena MD on 12/29/2024 1:47 PM us Mario Montesinos MD IMG CT PROCEDURES Final Res ult * CT Head wo IV Contrast (12/29/2024 1:21 PM EDT) Anatomical Region Laterality Modality Head Computed Tomogra phy Impressions 12/29/2024 1:47 PM EDT 1. No acute intracranial abnormality. 2. CTA of the head and neck without evidence of acute extracranial or intracranial arterial injury. 3. Appearance of thyroid as above, consider follow-up sonography if not previously evaluated. CRITICAL RESULT: No. COMMUNICATION: Per this written report. Drafted by hCris Urena MD on 12/29/2024 1:29 PM Final report signed by Chris Urena MD on 12/29/2024 1:47 PM Narrative 12/29/2024 1:47 PM EDT CLINICAL INDICATION: Fall this AM, 3.7 mm SAH on OSH scan TECHNIQUE: Routine contiguous axial CT images of the head were obtained without contrast administration. Contrast-enhanced CT angiogram of the head and neck was obtained after administration of intravenous iodinated contrast using 0.6 mm axial slice thickness with multiplanar reformations and maximum intensity projections. In addition, 3D images were created and reviewed. AI Utilization: None Total DLP (Dose-Length Product): 2367.61 mGy.cm (accession [id number]), 2367.61 mGy.cm (accession [id number]), 2367.61 mGy.cm (accession [id number]). Please note: The reported value represents the total of one or more individual components during the CT acquisition on this date and at this time, and as such, the same value may appear in more than one CT report depending on the interpreting/reporting physicians. COMPARISON: Outside CT of the head obtained at 0724 this morning. FINDINGS: CT Head without: The CSF spaces appear clear, there is no midline shift, or attenuation of the basilar cisterns. Chronic appearing cerebral and cerebellar volume loss. Nonspecific calcifications within the right lentiform nucleus. No evidence of acute large territory infarct. No appreciable acute hemorrhage. Calvarium and skull base without acute findings. Mastoids, middle ear cavities, paranasal sinuses aerated. Extracranial soft tissues without acute findings. CTA Head: There is normal vascular anatomy. There is no evidence of vascular injury, specifically no significant arterial stenosis, occlusion, dissection, or pseudoaneurysm. The intracranial venous structures are also fairly well opacified and appear patent. 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 CTA Neck: There is normal vascular anatomy. There is no evidence of vascular injury, specifically no significant arterial stenosis, occlusion, dissection, or pseudoaneurysm. There is 0% stenosis of the ICA origins by NASCET criteria. Tortuous LICA, and vertebral arteries. Heterogeneous right lobe of thyroid, with internal calcifications, and 2.3 cm right lower pole heterogeneous nodule. Procedure Note Chris Urena MD - 12/29/2024 CLINICAL INDICATION: Fall this AM, 3.7 mm SAH on OSH scan TECHNIQUE: Routine contiguous axial CT images of the head were obtained withoutcontrast administration. Contrast-enhanced CT angiogram of the head and neck was obtained afteradministration of intravenous iodinated contrast using 0.6 mm axial slicethickness with multiplanar reformations and maximum intensity projections.In addition, 3D images were created and reviewed. AI Utilization: None Total DLP (Dose-Length Product): 2367.61 mGy.cm (accession [id number]),2367.61 mGy.cm (accession [id number]), 2367.61 mGy.cm (accession [id number]).Please note: The reported value represents the total of one or moreindividual components during the CT acquisition on this date and at thistime, and as such, the same value may appear in more than one CT reportdepending on the interpreting/reporting physicians. COMPARISON: Outside CT of the head obtained at 0724 this morning. FINDINGS: CT Head without: The CSF spaces appear clear, there is no midline shift, or attenuation ofthe basilar cisterns. Chronic appearing cerebral and cerebellar volume loss. Nonspecific calcifications within the right lentiform nucleus. No evidence of acute large territory infarct. No appreciable acute hemorrhage. Calvarium and skull base without acute findings. Mastoids, middle ear cavities, paranasal sinuses aerated. Extracranial soft tissues without acute findings. CTA Head: There is normal vascular anatomy. There is no evidence of vascular injury,specifically no significant arterial stenosis, occlusion, dissection, orpseudoaneurysm. The intracranial venous structures are also fairly wellopacified and appear patent. 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 CTA Neck: There is normal vascular anatomy. There is no evidence of vascular injury,specifically no significant arterial stenosis, occlusion, dissection, orpseudoaneurysm. There is 0% stenosis of the ICA origins by NASCETcriteria. Tortuous LICA, and vertebral arteries. Heterogeneous right lobe of thyroid, with internal calcifications, and 2.3cm right lower pole heterogeneous nodule. IMPRESSION: 1. No acute intracranial abnormality. 2. CTA of the head and neck without evidence of acute extracranial orintracranial arterial injury. 3. Appearance of thyroid as above, consider follow-up sonography if notpreviously evaluated. CRITICAL RESULT: No. COMMUNICATION: Per this written report. Drafted by Chris Urena MD on 12/29/2024 1:29 PM Final report signed by Chris Urena MD on 12/29/2024 1:47 PM Mario Montesinos MD IMG CT PROCEDURES Final Res ult * ED HIV 1/2 Antibody/Antigen Screen w/Reflex to HIV 1/2 Differentiation (12/29/2024 11:13 AM EDT) [facility] HIV 1 & 2 Antibody/Antigen Screen Non Reactive Non Reactive 12/29/2024 12:13 PM EDT [facility] Comment:Screening for HIV 1 & 2 antibodies, and P24 antigen is NONREACTIVE. No confirmatory testing is required. Blood Venous blood specimen / Unknown Venipuncture / Unknown 12/29/2024 11:13 AM EDT 12/29/2024 11:32 AM EDT Mario Montesinos MD LAB BLOOD ORDERABLES Final Result [facility] [address] [place] [address] * Hepatitis C Antibody - ED (12/29/2024 11:13 AM EDT) [facility] Hepatitis C Antibody Negative Negative 12/29/2024 12:10 PM EDT [facility] Blood Venous blood specimen / Unknown Venipuncture / Unknown 12/29/2024 11:13 AM EDT 12/29/2024 11:29 AM EDT Mario Montesinos MD LAB BLOOD ORDERABLES Final Result [facility] [address] [place] [address] * (ABNORMAL) CBC w/diff (12/29/2024 11:13 AM EDT) Pathologist [facility] WBC Count 5.48 3.70 - 10.30 10*3/uL LAB HEMATOLOGY METHOD 12/29/2024 11:17 AM EDT [facility] RBC Count 3.92 3.90 - 5.20 10*6/uL LAB HEMATOLOGY METHOD 12/29/2024 11:17 AM EDT [facility] HGB 11.8 11.2 - 15.7 g/dL LAB HEMATOLOGY METHOD 12/29/2024 11:17 AM EDT [facility] HCT 35.4 34.0 - 45.0 % LAB HEMATOLOGY METHOD 12/29/2024 11:17 AM EDT [facility] Platelet Count 236 155 - 369 10*3/uL LAB HEMATOLOGY METHOD 12/29/2024 11:17 AM EDT [facility] MCV 90 79 - 98 fL LAB HEMATOLOGY METHOD 12/29/2024 11:17 AM EDT [facility] MCH 30.1 26.0 - 32.0 pg LAB HEMATOLOGY METHOD 12/29/2024 11:17 AM EDT [facility] MCHC 33.3 30.7 - 35.5 g/dL LAB HEMATOLOGY METHOD 12/29/2024 11:17 AM EDT [facility] RDW 13.1 11.5 - 14.5 % LAB HEMATOLOGY METHOD 12/29/2024 11:17 AM EDT [facility] MPV 8.1(L) 8.8 - 12.5 fL LAB HEMATOLOGY METHOD 12/29/2024 11:17 AM EDT [facility] nRBC 0.0 <=0.0 per 100 WBCs LAB HEMATOLOGY METHOD 12/29/2024 11:17 AM EDT [facility] Differential Type Automated LAB HEMATOLOGY METHOD 12/29/2024 11:17 AM EDT [facility] Neutrophils % 69 % LAB HEMATOLOGY METHOD 12/29/2024 11:17 AM EDT [facility] Lymphocytes % 21 % LAB HEMATOLOGY METHOD 12/29/2024 11:17 AM EDT [facility] Monocytes % 7 % LAB HEMATOLOGY METHOD 12/29/2024 11:17 AM EDT [facility] Eosinophils % 2 % LAB HEMATOLOGY METHOD 12/29/2024 11:17 AM EDT [facility] Basophils % 1 % LAB HEMATOLOGY METHOD 12/29/2024 11:17 AM EDT [facility] Immature Granulocytes % 0 % LAB HEMATOLOGY METHOD 12/29/2024 11:17 AM EDT [facility] Neutrophils Absolute 3.81 1.60 - 6.10 10*3/uL LAB HEMATOLOGY METHOD 12/29/2024 11:17 AM EDT [facility] Lymphocytes Absolute 1.16(L) 1.20 - 3.90 10*3/uL LAB HEMATOLOGY METHOD 12/29/2024 11:17 AM EDT [facility] Monocytes Absolute 0.36 0.30 - 0.90 10*3/uL LAB HEMATOLOGY METHOD 12/29/2024 11:17 AM EDT [facility] Eosinophils Absolute 0.10 0.00 - 0.50 10*3/uL LAB HEMATOLOGY METHOD 12/29/2024 11:17 AM EDT [facility] Basophils Absolute 0.04 0.00 - 0.10 10*3/uL LAB HEMATOLOGY METHOD 12/29/2024 11:17 AM EDT [facility] Immature Granulocytes Absolute 0.01 0.00 - 0.06 10*3/uL LAB HEMATOLOGY METHOD 12/29/2024 11:17 AM EDT [facility] Blood Venous blood specimen / Unknown Venipuncture / Unknown 12/29/2024 11:13 AM EDT 12/29/2024 11:15 AM EDT [facility] - 12/29/2024 11:17 AM EDT Therapeutic decision making should be based on absolute values, rather than percentages. us Mario Montesinos MD LAB BLOOD ORDERABLES Final Result [facility] [address] [place] [address] * (ABNORMAL) CMP (12/29/2024 11:13 AM EDT) Glucose, Plasma 95 74 - 99 mg/dL 12/29/2024 11:37 AM EDT [facility] BUN, Plasma 30(H) 8 - 23 mg/dL 12/29/2024 11:37 AM EDT [facility] Creatinine, Plasma 1.25(H) 0.60 - 1.10 mg/dL 12/29/2024 11:37 AM EDT [facility] BUN/Creatinine Ratio 24 12/29/2024 11:37 AM EDT [facility] Sodium, Plasma 138 136 - 145 mmol/L 12/29/2024 11:37 AM EDT [facility] Potassium, Plasma 2.9(L) 3.6 - 4.9 mmol/L 12/29/2024 11:37 AM EDT [facility] Chloride, Plasma 98 97 - 107 mmol/L 12/29/2024 11:37 AM EDT [facility] CO2, Plasma 26 22 - 29 mmol/L 12/29/2024 11:37 AM EDT [facility] Anion Gap 14 6 - 16 mmol/L 12/29/2024 11:37 AM EDT [facility] Total Calcium, Plasma 9.8 8.9 - 10.2 mg/dL 12/29/2024 11:37 AM EDT [facility] Total Protein 7.1 6.3 - 7.9 g/dL 12/29/2024 11:37 AM EDT [facility] Albumin, Plasma 4.2 3.5 - 5.2 g/dL 12/29/2024 11:37 AM EDT [facility] AST, Plasma 22 10 - 35 U/L 12/29/2024 11:37 AM EDT [facility] ALT, Plasma 20 10 - 35 U/L 12/29/2024 11:37 AM EDT [facility] Alkaline Phosphatase, Plasma 72 46 - 142 U/L 12/29/2024 11:37 AM EDT [facility] Total Bilirubin, Plasma 0.5 0.2 - 1.1 mg/dL 12/29/2024 11:37 AM EDT [facility] eGFRcr 44.8 mL/min/1.7 3m*2 12/29/2024 11:37 AM EDT [facility] Comment:Reported eGFRcr in m L/min/1.73m2 is based the CKD-EPI 2020 equation that does not use a race coefficient. Blood Venous blood specimen / Unknown Venipuncture / Unknown 12/29/2024 11:13 AM EDT 12/29/2024 11:15 AM EDT us Mario Montesinos MD LAB BLOOD ORDERABLES Final Result [facility] [address] [place] [address] documented in this encounter Visit Diagnoses Diagnosis Other closed fracture of eleventh thoracic vertebra, initial encounter ([facility])- Primary Fall, initial encounter documented in this encounter Administered Medications Inactive Administered Medications - up to 3 most recent administrations Medication Order MAR Action Action Date Dose Rate Site iohexol (OMNIPaque) 350 MG/ML injection 100 mL 100 mL, Intravenous, Once in imaging, 1 dose, Starting on 12/29/24 at 1303, Until 12/29/24 at 1303, Routine, Imaging Protocol Orders Given 12/29/2024 1:03 PM EDT 60 mL potassium chloride CR (Klor-Con) ER tablet 40 mEq 40 mEq, Oral, Once, 1 dose, On 12/29/24 at 1255, Routine Given 12/29/2024 1:13 PM EDT 40 mEq documented in this encounter Active and Recently Administered Medications Times are shown in EDT. Scheduled Medication Order 12/27/2024 12/28/2024 12/29/2024 iohexol (OMNIPaque) 350 MG/ML injection 100 mL (COMPLETED) 100 mL, Intravenous, Once in imaging, 1 dose, Starting on 12/29/24 at 1303, Until 12/29/24 at 1303, Routine, Imaging Protocol Orders 1303 (Given - Provid er: Nanci [place]) potassium chloride CR (Klor-Con) ER tablet 40 mEq (COMPLETED) 40 mEq, Oral, Once, 1 dose, On 12/29/24 at 1255, Routine 1313 (Given - Provid er: Fabi Dennis RN) documented in this encounter Additional Health Concerns Assessment Noted Time A fall risk assessment has been complete d for the patient 12/07/2024 8:48 AM EDT A Body Mass Index follow-up plan has been documented for the patient 12/04/2024 9:30 AM EDT documented as of this encounter Care Teams Historiography Professor Relationship Specialty Start Date End Date Nolberto Streeter MD [address] [facility] [address] [place] [address] PCP - General 09/28/22 Aniya Kathleen MD [address] [facility] [address] [place] [address] Consulting Physician Radiation Therapy 08/05/23 documented as of this encounter
--- OUTSIDE RECORDS SUMMARY | 2025-01-23 11:06 | XMS_ITS | Encounter Summary ---
Author Organization [facility] Address [address] [place] [address] Care Team Providers Care Molder Pipe Covering Name Role Phone Nolberto Streeter MD Primary Care Provider [phone] Aniya Kathleen MD Unavailable [phone] Encounter Details Date Type Department Care Team (Late st Contact Info) Description 09/30/2022 Lab Requisition [facility] [address] [place] [address] Anne Garland MD [id number] [place] [address] Other specified noninflammatory disorders of uterus Social [...] Consult [place] [facility] [address], [address] [place] [address] Mikhail George MD [address] [place] [address] 03/15/2025 8:00 AM EST Office Visit [facility] [address] [place] [address] Anne Garland MD [address] [place] [address] 06/07/2025 9:15 AM EST Office Visit [facility] [address] [place] [address] Triston Velasquez MD [address] [facility] [address] [place] [address] 06/28/2025 9:30 AM EST Appointment [facility] Rad[facility] [id number] [place] [address] Aniya Kathleen MD [address] [place] [address] documented as of this encounter Procedures Procedure Name Priority Date/Time Associated Diagnosis Comments SURGICAL PATHOLOGY CONSULT Routine 09/30/2022 10:59 AM EDT Other specified noninflammatory disorders of uterus documented in this encounter Results * Surgical Pathology Consult (09/30/2022 10:59 AM EDT) Case Report Sugical Pathology Consult Case: [id number] Authorizing Provider: Anne Garland MD Collected: 09/30/2022 1053 Ordering Location: [facility] Lab Received: 09/30/2022 1052 Pathologist: Xiomara Almonte MD Specimen: Cervix, [id number] 10/05/2022 3:42 PM EDT [facility] Final Diagnosis A. CERVIX, BIOPSY (OUTSIDE SLIDES [id number], 09/16/22): - AT LEAST ENDOCERVICAL ADENOCARCINOMA IN SITU; NO DEFINITE INVASION IDENTIFIED 10/05/2022 3:42 PM EDT [facility] at 1542 EDT Comment The tumor is morphologically similar to the subsequent biopsy [id number]. Please refer to that report for the immunohistochemical results. 10/05/2022 3:42 PM EDT [facility] Clinical Information N85.8 - Other specified noninflammatory disorders of uterus [ICD-10-CM] 10/05/2022 3:42 PM EDT [facility] Gross Description A. [id number] Received along with a corresponding pathology report from [facility] is 1 slide labeled outside case: [id number] collected on 09/16/2022. 10/05/2022 3:42 PM EDT [facility] Note: A resident was involved in the service. I attest I examined the relevant preparations for the specimens and confirmed the diagnosis or interpretation. 10/05/2022 3:42 PM EDT [facility] Tissue Cervix uteri structure / Unknown 09/30/2022 10:59 AM EDT 09/30/2022 10:59 AM EDT Anne Garland MD LAB PATHOLOGY ORDERABLES Final Result Performing Organization Address City/State/[facility] Phone Number [facility] [address] [place] [id number] documented in this encounter Visit Diagnoses Diagnosis Other specified noninflammatory disorders of uterus documented in this encounter Additional Health Concerns Assessment Noted Time A fall risk assessment has been complete d for the patient 09/29/2022 12:27 PM EDT A Body Mass Index follow-up plan has been documented for the patient 10/05/2022 9:28 AM EDT documented as of this encounter Care Teams Molder Pipe Covering Relationship Specialty Start Date End Date Nolberto Streeter MD [address] [place] [address] [address]1 [address]1 AILEEN Catherine [id number] PCP - General 09/28/22 Aniya Kathleen MD [address] [phone] Consulting Physician Radiation Therapy 08/05/23 documented as of this encounter
--- OUTSIDE RECORDS SUMMARY | 2025-01-23 11:06 | XMS_ITS | Encounter Summary ---
Author Organization [facility] Address [address] [place] [address] Care Team Providers Care Inspector Insulation Name Role Phone Nolberto Streeter MD Primary Care Provider [phone] Aniya Kathleen MD Unavailable [phone] Encounter Details Date Type Department Care Team [...] Consult [place] [facility] [address] [place] [address] Mikhail George MD [address] [place] [address] 03/15/2025 8:00 AM EST Office Visit [facility] [address] [place] [address] Anne Garland MD [address] [place] [address] 06/07/2025 9:15 AM EST Office Visit [facility] [address] [facility] [place] [address] Triston Velasquez MD [address] [facility] [address] [place] [address] 06/28/2025 9:30 AM EST Appointment [facility] [address] [facility] [address] [place] [address] Aniya Kathleen MD 800 [facility] [address] [place] [address] documented as of this encounter Visit Diagnoses Not on filedocumented in this encounter Additional Health Concerns Assessment Noted Time A fall risk assessment has been complete d for the patient 12/04/2024 8:31 AM EDT A Body Mass Index follow-up plan has been documented for the patient 12/04/2024 9:30 AM EDT documented as of this encounter Care Teams Inspector Insulation Relationship Specialty Start Date End Date Nolberto Streeter MD [address] [place] [address] [address]1 [address] [place] [address] PCP - General 09/28/22 Aniya Kathleen MD 800 [facility] [address] [place] [phone] Consulting Physician Radiation Therapy 08/05/23 documented as of this encounter
--- OUTSIDE RECORDS SUMMARY | 2025-01-23 11:06 | XMS_ITS | Encounter Summary ---
Author Organization [facility] Address [address] [place] [address] Care Team Providers Care User Interface Artist Name Role Phone Nolberto Streeter MD Primary Care Provider [phone] Aniya Kathleen MD Unavailable [phone] Encounter Details Date Type Department Care Team (Late st Contact Info) Description 01/18/2025 Telephone [place] [facility] [address] [place] [address] None, None [phone] Social History Tobacco Use Types Packs/Day Years [...] as of this encounter Miscellaneous Notes * Telephone Encounter - Ruel Townsend W - 01/18/2025 9:12 AM EDT Patient Phone Message Reason for Call: Patient daughter calling for scheduling from referral needing appt yoselin Best contact number and optimal time of day to reach caller: [phone] Note: Please do not reply to this message. Follow-up communication and further actions as a result of this message need to be communicated with the patient directly, if the patient is not active onMyChart. If the patient is active on MyChart, they will receive notification of the communication/outcome via MyChart. documented in this encounter Plan of Treatment Upcoming Encounters Date Type Department Care Team (Late st Contact Info) Description 01/31/2025 11:30 AM EDT Consult [place] [facility] [address] [place] [address] Mikhail George MD [address] [place] [address] 03/15/2025 8:00 AM EST Office Visit [facility] [address] [place] [address] Anne Garland MD [address] [place] [address] 06/07/2025 9:15 AM EST Office Visit [facility] [address] [place] [address] Triston Velasquez MD [address] [facility] [address] [place] [address] 06/28/2025 9:30 AM EST Appointment [facility] [id number] [place] [address] Aniya Kathleen MD [address] [facility] [address] [place] [address] documented as of this encounter Visit Diagnoses Not on filedocumented in this encounter Additional Health Concerns Assessment Noted Time A fall risk assessment has been complete d for the patient 12/07/2024 8:48 AM EDT A Body Mass Index follow-up plan has been documented for the patient 12/04/2024 9:30 AM EDT documented as of this encounter Care Teams User Interface Artist Relationship Specialty Start Date End Date Nolberto Streeter MD [address] [place] [address] [address]1 [address]1 [place] [address] PCP - General 09/28/22 Aniya Kathleen MD [address] [place] [address] [address] [place] [address] Consulting Physician Radiation Therapy 08/05/23 documented as of this encounter
--- OUTSIDE RECORDS SUMMARY | 2025-01-23 11:06 | XMS_ITS | Encounter Summary ---
Author Organization [facility] Address [address] [place] [address] Care Team Providers Care Recreation Facility Manager Name Role Phone Nolbreto Streeter MD Primary Care Provider [phone] Aniya Kathleen MD Unavailable [phone] Encounter Details Date Type Department Care Team (Late st Contact Info) Description 12/04/2024 Telephone [facility] [address] [facility] [address] [place] [address] Aniya Kathleen MD [address] [place] [address] Social History Tobacco Use Types [...] Info) Description 01/31/2025 11:30 AM EDT Consult [place] [facility] [address] [place] [address] Mikhail George MD [address] [place] [address] 03/15/2025 8:00 AM EST Office Visit [facility] [address] [place] [address] Anne Garland MD [address] [place] [address] 06/07/2025 9:15 AM EST Office Visit [facility] [address] [place] [address] Triston Velasquez MD [address] [place] [address] 06/28/2025 9:30 AM EST Appointment [facility] [id number] [place] [address] Aniya Kathleen MD [address] [place] [address] documented as of this encounter Visit Diagnoses Not on filedocumented in this encounter Additional Health Concerns Assessment Noted Time A fall risk assessment has been complete d for the patient 12/04/2024 8:31 AM EDT A Body Mass Index follow-up plan has been documented for the patient 12/04/2024 9:30 AM EDT documented as of this encounter Care Teams Recreation Facility Manager Relationship Specialty Start Date End Date Nolberto Streeter MD [address] [place] [address] [address]1 [address] [place] [address] PCP - General 09/28/22 Aniya Kathleen MD 800 [facility] [address] [place] [address] Consulting Physician Radiation Therapy 08/05/23 documented as of this encounter
--- OUTSIDE RECORDS SUMMARY | 2025-01-23 11:06 | XMS_ITS | Encounter Summary ---
Author Organization [facility] Address [address] [place] [address] Care Team Providers Care Instruction Librarian Name Role Phone Nolberto Streeter MD Primary Care Provider [phone] Aniya Kathleen MD Unavailable [phone] Encounter Details Date Type Department Care Team (Late st Contact Info) Description 09/28/2022 Lab Requisition [facility] [address] [place] [address] Heriberto Gupta MD [address] [facility] [address] [place] [address] Malignant neoplasm of colon, unspecified [...] Consult [place] [facility] [address] [place] [address] Mikhail George MD [address] [place] [address] 03/15/2025 8:00 AM EST Office Visit [facility] [address] [place] [address] Anne Garland MD [address] [facility] [address] [place] [address] 06/07/2025 9:15 AM EST Office Visit [facility] [address] [place] [address] Triston Velasquez MD [address] [place] [address] 06/28/2025 9:30 AM EST Appointment [facility] [address]V [place] [address] Aniya Kathleen MD [address] [place] [address] documented as of this encounter Procedures Procedure Name Priority Date/Time Associated Diagnosis Comments SURGICAL PATHOLOGY CONSULT Routine 09/28/2022 1:02 PM EDT Malignant neoplasm of colon, unspecified (CMS/HCC) documented in this encounter Results * Surgical Pathology Consult (09/28/2022 1:02 PM EDT) Case Report Sugical Pathology Consult Case: [id number] Authorizing Provider: Heriberto Gupta MD Collected: 09/28/2022 1302 Ordering Location: [facility] Lab Received: 09/28/2022 1302 Pathologist: Jose Antonio Victor MD Specimen: Colon, [id number] 10/06/2022 6:56 PM EDT [facility] Final Diagnosis ASCENDING COLON, MASS, BIOPSY (OUTSIDE: [id number]; COLLECTION: 08/27/2022): - TUBULAR ADENOMA; LOW GRADE DYSPLASIA ONLY (SEE COMMENT) 10/06/2022 6:56 PM EDT [facility] at 1856 EDT Comment The apparent impression of a mass lesion is noted. Sections reveal the presence of low grade dysplasia, harboring some villous features which may indicate an advanced polyp, but no evidence of high grade dysplasia or carcinoma. Given this discordance, the specimen may not be entirely traveling representative of the targeted lesion. 10/06/2022 6:56 PM EDT [facility] Clinical Information C18.9 - Malignant neoplasm of colon, unspecified [ICD-10-CM] 10/06/2022 6:56 PM EDT [facility] Gross Description A. [id number] Received along with a corresponding pathology report from [facility] are 1 slide labeled outside case: [id number] collected on 08/27/2022. 10/06/2022 6:56 PM EDT [facility] Note: A resident was involved in the service. I attest I examined the relevant preparations for the specimens and confirmed the diagnosis or interpretation. 10/06/2022 6:56 PM EDT [facility] Tissue Colon structure / Unknown 09/28/2022 1:02 PM EDT 09/28/2022 1:02 PM EDT us Heriberto Gupta MD LAB PATHOLOGY ORDERABLES Final Result [facility] [address] [place] [address] documented in this encounter Visit Diagnoses Diagnosis Malignant neoplasm of colon, unspecified (CMS/HCC) documented in this encounter Additional Health Concerns Assessment Noted Time A fall risk assessment has been complete d for the patient 09/28/2022 8:00 AM EDT A Body Mass Index follow-up plan has been documented for the patient 10/05/2022 9:28 AM EDT documented as of this encounter Care Teams Instruction Librarian Relationship Specialty Start Date End Date Nolberto Streeter MD [address] [facility] [address] [place] [address] PCP - General 09/28/22 Aniya Kathleen MD [address] [facility] [address] [place] [address] Consulting Physician Radiation Therapy 08/05/23 documented as of this encounter
--- OUTSIDE RECORDS SUMMARY | 2025-01-23 11:06 | XMS_ITS | Encounter Summary ---
Author Organization [facility] Address [address] [place] [address] Care Team Providers Care Hadoop Developer Name Role Phone Nolberto Streeter MD Primary Care Provider [phone] Aniya Kathleen MD Unavailable [phone] Encounter Details Date Type Department Care [...] Consult [place] [facility] [address] 1[address] [place] [address] Mikhail George MD [address] [place] [address] 03/15/2025 8:00 AM EST Office Visit [facility] [address] [place] [address] Anne Garland MD [address] [place] [address] 06/07/2025 9:15 AM EST Office Visit [facility] [address] [place] [address] Triston Velasquez MD [address] [facility] [address] [place] [address] 06/28/2025 9:30 AM EST Appointment [facility] [address] [facility] [address] [place] [address] Aniya Kathleen MD [address] [facility] [address] [place] [address] documented as of this encounter Visit Diagnoses Not on filedocumented in this encounter Additional Health Concerns Assessment Noted Time A fall risk assessment has been complete d for the patient 12/07/2024 8:48 AM EDT A Body Mass Index follow-up plan has been documented for the patient 12/04/2024 9:30 AM EDT documented as of this encounter Care Teams Hadoop Developer Relationship Specialty Start Date End Date Nolberto Streeter MD [address] [place] [address] [address] [place] [address] PCP - General 09/28/22 Aniya Kathleen MD [address] [facility] [address] [place] [address] Consulting Physician Radiation Therapy 08/05/23 documented as of this encounter
--- OUTSIDE RECORDS SUMMARY | 2025-01-23 11:06 | XMS_ITS | Encounter Summary ---
Author Organization Healthcare Address [address] [place] [address] Care Team Providers Care Hammer Smith Name Role Phone Nolberto Streeter MD Primary Care Provider [phone] Aniya Kathleen MD Unavailable Encounter Details Date Type Department Care Team (Late st Contact Info) Description 08/27/2022 Orders Only External Location [address] [place] [address] Mack Ibrahim MD [address] [place], [place] [id number] Social History Tobacco Use Types Packs/Day Years [...] Info) Description 01/31/2025 11:30 AM EDT Consult [place] [facility] [address] 1[address] [place] [address] Mikhail George MD [address] [place] [address] 03/15/2025 8:00 AM EST Office Visit [facility] [address] [place] [address] Anne Garland MD [address] [place] [address] 06/07/2025 9:15 AM EST Office Visit [facility] [address] [place] [address] Triston Velasquez MD [address] [place] [address] 06/28/2025 9:30 AM EST Appointment [facility] [address] [facility]. [address] [place] [address] Aniya Kathleen MD [id number] [place] [address] documented as of this encounter [...] on filedocumented in this encounter Care Teams Hammer Smith Relationship Specialty Start Date End Date Nolberto Streeter MD [address] [place] [address] [address] [place] [id number] PCP - General 09/28/22 Aniya Kathleen MD [address] [address] Consulting Physician Radiation Therapy 08/05/23 documented as of this encounter
--- OUTSIDE RECORDS SUMMARY | 2025-01-23 11:07 | XMS_ITS | Encounter Summary ---
Author Organization Healthcare Address [address] [place] [address] Care Team Providers Care Photograph Editor Name Role Phone Nolberto Streeter MD Primary Care Provider [phone] Aniya Kathleen MD Unavailable [phone] Encounter Details Date Type Department Care Team (Late st Contact Info) Description 12/29/2024 Orders Only External Location [address] [place] [address] Provider, External Social History Tobacco Use Types [...] Info) Description 01/31/2025 11:30 AM EDT Consult [place] [facility] [address] 1st [place] [address] Mikhail George MD [address] [place] [address] 03/15/2025 8:00 AM EST Office Visit [facility] [address] [place] [address] Anne Garland MD [address] [facility] [address] [place] [address] 06/07/2025 9:15 AM EST Office Visit [facility] [address] [place] [address] Triston Velasquez MD [address] [place] [address] 06/28/2025 9:30 AM EST Appointment [facility] [address] [place] [address] Aniya Kathleen MD [address] [place] [address] documented as of this encounter Procedures Procedure [...] documented as of this encounter Care Teams Photograph Editor Relationship Specialty Start Date End Date Nolberto Streeter MD [address] [facility] [address] [place] [address] PCP - General 09/28/22 Aniya Kathleen MD [address] [facility] [address] [address] [place] [address] Consulting Physician Radiation Therapy 08/05/23 documented as of this encounter
--- OUTSIDE RECORDS SUMMARY | 2025-01-23 11:07 | XMS_ITS | Encounter Summary ---
Author Organization Healthcare Address [address] [place] [address] Care Team Providers Care Plastic Sewer Name Role Phone Nolberto Streeter MD Primary Care Provider [phone] Aniya Kathleen MD Unavailable [phone] Encounter Details Date Type Department Care Team (Late st Contact Info) Description 12/29/2024 Orders Only External Location [address] [place] [address] Provider, External Social History Tobacco Use Types [...] No 12/29/2024 10:47 AM EDT Deejay Dennis, IAN 6. Suicidal Behavior (Lifetime) No 12/29/2024 10:47 AM EDT Deejay Dennis RN documented as of this encounter Plan of Treatment Upcoming Encounters Date Type Department Care Team (Late st Contact Info) Description 01/31/2025 11:30 AM EDT Consult [place] [facility] [address] 1st [place] [address] Mikhail George MD [address] [place] [address] 03/15/2025 8:00 AM EST Office Visit [facility] [address] [place] [address] Anne Garland MD [address] [facility] [address] [place] [address] 06/07/2025 9:15 AM EST Office Visit [facility] [address] [place] [address] Triston Velasquez MD [address] [place] [address] 06/28/2025 9:30 AM EST Appointment [facility] [address] [place] [address] Aniya Kathleen MD [address] [place] [address] documented as of this encounter Procedures Procedure [...] documented as of this encounter Care Teams Plastic Sewer Relationship Specialty Start Date End Date Nolberto Streeter MD [address] [facility] [address] [place] [address] PCP - General 09/28/22 Aniya Kathleen MD 800 [facility] [address] [place] [address] Consulting Physician Radiation Therapy 08/05/23 documented as of this encounter
--- OUTSIDE RECORDS SUMMARY | 2025-01-23 11:07 | XMS_ITS | Encounter Summary ---
Author Organization Healthcare Address [address] [place] [address] Care Team Providers Care Industrial Chemicals Supervisor Name Role Phone Nolberto Streeter MD Primary Care Provider [phone] Aniya Kathleen MD Unavailable [phone] Encounter Details Date Type Department Care Team (Late st Contact Info) Description 12/29/2024 Orders Only External Location [address] [place] [address] Provider, External Social History Tobacco Use Types [...] Consult [place] [facility] [address] 1[address] [place] [address] Mikhail George MD [address] [place] [address] 03/15/2025 8:00 AM EST Office Visit [facility] [address] [place] [address] Anne Garland MD [address] [facility] [address] [place] [address] 06/07/2025 9:15 AM EST Office Visit [facility] [address] [place] [address] Triston Velasquez MD [address] [place] [address] 06/28/2025 9:30 AM EST Appointment [facility] [address] [place] [address] Aniya Kathleen MD [address] [place] [address] documented as of this encounter Procedures Procedure [...] documented as of this encounter Care Teams Industrial Chemicals Supervisor Relationship Specialty Start Date End Date Nolberto Streeter MD [address] [facility] [address] [place] [address] PCP - General 09/28/22 Aniya Kathleen MD 800 [facility] [address] [place] [address] Consulting Physician Radiation Therapy 08/05/23 documented as of this encounter
--- OUTSIDE RECORDS SUMMARY | 2025-01-23 11:07 | XMS_ITS | Encounter Summary ---
Author Organization Healthcare Address [address] [place] [address] Care Team Providers Care Sprinkling System Installer Name Role Phone Nolberto Streeter MD Primary Care Provider Aniya Kathleen MD Unavailable [phone] Encounter Details Date Type Department Care Team (Late st Contact Info) Description 12/29/2024 Orders Only External Location [address] [place] [address] Provider, External Social History Tobacco Use Types [...] Info) Description 01/31/2025 11:30 AM EDT Consult [place] [facility] [address] 1[address] [place] [address] Mikhail George MD [address] [place] [address] 03/15/2025 8:00 AM EST Office Visit [facility] [address] [place] [address] Anne Garland MD [address] [facility] [address] [place] [address] 06/07/2025 9:15 AM EST Office Visit [facility] [address] [place] [address] Triston Velasquez MD [address] [place] [address] 06/28/2025 9:30 AM EST Appointment [facility] [address] [place] [address] Aniya Kathleen MD [address] [place] [address] documented as of this encounter Procedures Procedure [...] documented as of this encounter Care Teams Sprinkling System Installer Relationship Specialty Start Date End Date Nolberto Streeter MD [address] [facility] [address] [place] [address] PCP - General 09/28/22 Aniya Kathleen MD 800 [facility] [address] [place] [address] Consulting Physician Radiation Therapy 08/05/23 documented as of this encounter
--- OUTSIDE RECORDS SUMMARY | 2025-01-23 11:07 | XMS_ITS | Clinical Summary ---
Author Organization [facility] Address [address] [place] [address] Care Team Providers Care Vertical Lathe Operator Name Role Phone Nolberto Streeter MD Primary Care Provider [phone] Aniya Kathleen MD Unavailable [phone] Allergies Active Allergy Reactions Criticality Noted Date Comments Hydrochlorothiazide Dizziness,Other - pl ease document in the comment field Low 08/27/2022 Medications atenolol (Tenormin) 25 MG tablet Take 1 tablet (25 mg) by mouth 2 (two) times a day. 07/11/19 23 Active aspirin 81 MG EC tablet Take 1 tablet (81 mg) by mouth daily. Active Multiple Vitamins-Pike als (Womens Multi Vitamin & Mineral) tablet [...] to 7 days. 42 tablet 12/30/19 25 025 Discontinued Active Problems Problem Noted Date Diagnosed Date Primary hypertension 12/06/2022 Malignant neoplasm of overlapping sites of cervi x 11/30/2022 Cancer Staging:Clinical:FIGO Stage IIA2(cT2a2, cN0, cM0) - Signed by Anne Garland MD on 12/06/2022 Adenomatous polyp of ascending colon 10/05/2022 Overview (10/05/2022): Added automatically from request for surgery [id number] Resolved Problems Problem Noted Date Diagnosed Date Resolved Date Malignant neoplasm of cervix , unspecified site 12/09/2022 12/10/2022 Malignant neoplasm of ascending colon 09/29/2022 11/30/2022 Encounters Date Type Department Care Team Description 01/18/2025 Telephone [place] [facility] [address] 1[address] [place] [address] None, None 12/29/2024 10:19 AM EDT - 12/29/2024 3:18 PM EDT Emergency [facility] Emergency Department [address] [place] [address] Eric Montesinos MD Other closed fracture of eleventh thoracic vertebra, initial encounter ([facility]) (Primary Dx); Fall, initial encounter Discharge Disposition: Home or Self Care 12/29/2024 Travel 12/29/2024 Orders Only External Location [address] [place] [address] Provider, External 12/29/2024 Orders Only External Location [address] [place] [address] Provider, External 12/29/2024 Orders Only External Location [address] [place] [address] Provider, External 12/29/2024 Orders Only External Location [address] [place] [address] Provider, External 12/07/2024 8:29 AM EDT - 12/07/2024 11:59 PM EDT Hospital Encounter [facility] Radiation [address] [address] Aniya Kathleen MD Malignant neoplasm of overlapping sites of cervix ([facility]) (Primary Dx) Discharge Disposition: Still a Patient 12/07/2024 Travel 12/04/2024 8:15 AM EDT Office Visit [facility] [address] [place] [address] Triston Velasquez MD At high risk for open angle glaucoma of both eyes (Primary Dx); Pseudophakia of both eyes 12/04/2024 8:05 AM EDT Ancillary Procedure [facility] [address] [place] [address] 12/04/2024 Telephone [facility] [address] [address] Aniya Kathleen MD 12/04/2024 Travel [...] Consult [place] [facility] [address], 1[address] [place] [address] Mikhail George MD [address] [place] [address] 03/15/2025 8:00 AM EST Office Visit [facility] [address] [place] [address] Anne Garland MD [address] Singer [facility] [address] [place] [address] 06/07/2025 9:15 AM EST Office Visit [facility] [address] [place] [address] Triston Velasquez MD [address] [place] [address] 06/28/2025 9:30 AM EST Appointment [facility] [id number] [place] [address] Aniya Kathleen MD [address] [place] [address] Health Maintenance Due Date Last Done Comments [facility]-Bone Density Scan 1950 [facility]-Medicare Annual Wellness (AWV) 1950 [facility]-Infant/Child/Adol SDOH Screenings 1950 [facility]- SDOH Screenings 1966 [facility]-Adult SDOH Screenings 1966 [facility]-Pneumococcal Vaccine: 50+ Years (1 of 2 - PCV) 12/14/1967 [facility]-Zoster Vaccines (1 of 2) 12/14/1967 [facility]-RSV Vaccine: 60+ Years or (1 - 1-dose 75+ series) 12/14/2023 [id number] Vaccine (8 - Moderna risk 2023- season) 2025 05/07/2024, 03/03/2023, 02/10/2022, Additional history [...] Total DLP (Dose-Length Product): 2367.61 mGy.cm (accession [id number]), 2367.61 mGy.cm (accession [id number]). Please note: The reported value represents the [...] Total DLP (Dose-Length Product): 2367.61 mGy.cm (accession [id number]),2367.61 mGy.cm (accession [id number]). Please note: The reported valuerepresents the total [...] Total DLP (Dose-Length Product): 2367.61 mGy.cm (accession [id number]), 2367.61 mGy.cm (accession [id number]). Please note: The reported value represents the [...] Total DLP (Dose-Length Product): 2367.61 mGy.cm (accession [id number]),2367.61 mGy.cm (accession [id number]). Please note: The reported valuerepresents the total [...] Total DLP (Dose-Length Product): 2367.61 mGy.cm (accession [id number]), 2367.61 mGy.cm (accession [id number]), 2367.61 mGy.cm (accession [id number]). Please note: The reported value represents the [...] Total DLP (Dose-Length Product): 2367.61 mGy.cm (accession [id number]),2367.61 mGy.cm (accession [id number]), 2367.61 mGy.cm (accession [id number]).Please note: The reported value represents the total [...] Total DLP (Dose-Length Product): 2367.61 mGy.cm (accession [id number]), 2367.61 mGy.cm (accession [id number]), 2367.61 mGy.cm (accession [id number]). Please note: The reported value represents the [...] Total DLP (Dose-Length Product): 2367.61 mGy.cm (accession [id number]),2367.61 mGy.cm (accession [id number]), 2367.61 mGy.cm (accession [id number]).Please note: The reported value represents the total [...] 1:21 PM EDT) Anatomical Region Laterality Modality [place] Computed Tomogr aphy Impressions 12/29/2024 [...] Total DLP (Dose-Length Product): 2367.61 mGy.cm (accession [id number]), 2367.61 mGy.cm (accession [id number]), 2367.61 mGy.cm (accession [id number]). Please note: The reported value represents the [...] Total DLP (Dose-Length Product): 2367.61 mGy.cm (accession [id number]),2367.61 mGy.cm (accession [id number]), 2367.61 mGy.cm (accession [id number]).Please note: The reported value represents the total [...] HIV 1/2 Differentiation (12/29/2024 11:13 AM EDT) [facility] HIV 1 & 2 Antibody/Antigen Screen Non Reactive Non Reactive 12/29/2024 12:13 PM EDT [facility] Comment:Screening for HIV 1 & 2 antibodies, and P24 antigen is NONREACTIVE. No confirmatory testing is required. Blood Venous blood specimen / Unknown Venipuncture / Unknown 12/29/2024 11:13 AM EDT 12/29/2024 11:32 AM EDT Eric Montesinos MD LAB BLOOD ORDERABLES Final Result Performing Organization Address City/[facility]/ZIP Co de Phone Number [facility] [address] [place] [address] * Hepatitis C Antibody - ED (12/29/2024 11:13 AM EDT) [facility] Hepatitis C Antibody Negative Negative 12/29/2024 12:10 PM EDT [facility] Blood Venous blood specimen / Unknown Venipuncture / Unknown 12/29/2024 11:13 AM EDT 12/29/2024 11:29 AM EDT Eric Montesinos MD LAB BLOOD ORDERABLES Final Result Performing Organization Address City/[facility]/ZIP Co de Phone Number [facility] [address] [place] [address] * (ABNORMAL) CBC w/diff (12/29/2024 11:13 AM EDT) [facility] WBC Count 5.48 3.70 - 10.30 10*3/uL LAB HEMATOLOGY METHOD 12/29/2024 11:17 AM EDT [facility] RBC Count 3.92 3.90 - 5.20 10*6/uL LAB HEMATOLOGY METHOD 12/29/2024 11:17 AM EDT [facility] HGB 11.8 11.2 - 15.7 g/dL LAB HEMATOLOGY METHOD 12/29/2024 11:17 AM EDT [facility] HCT 35.4 34.0 - 45.0 % LAB HEMATOLOGY METHOD 12/29/2024 11:17 AM EDT [facility] Platelet Count 236 155 - 369 10*3/uL LAB HEMATOLOGY METHOD 12/29/2024 11:17 AM EDT [facility] MCV 90 79 - 98 fL LAB HEMATOLOGY METHOD 12/29/2024 11:17 AM EDT [facility] MCH 30.1 26.0 - 32.0 pg LAB HEMATOLOGY METHOD 12/29/2024 11:17 AM EDT [facility] MCHC 33.3 30.7 - 35.5 g/dL LAB HEMATOLOGY METHOD 12/29/2024 11:17 AM EDT [facility] RDW 13.1 11.5 - 14.5 % LAB HEMATOLOGY METHOD 12/29/2024 11:17 AM EDT [facility] MPV 8.1(L) 8.8 - 12.5 fL LAB HEMATOLOGY METHOD 12/29/2024 11:17 AM EDT [facility] nRBC 0.0 <=0.0 per 100 WBCs LAB HEMATOLOGY METHOD 12/29/2024 11:17 AM EDT [facility] Differential Type Automated LAB HEMATOLOGY METHOD 12/29/2024 11:17 AM EDT [facility] Neutrophils % 69 % LAB HEMATOLOGY METHOD 12/29/2024 11:17 AM EDT [facility] Lymphocytes % 21 % LAB HEMATOLOGY METHOD 12/29/2024 11:17 AM EDT [facility] Monocytes % 7 % LAB HEMATOLOGY METHOD 12/29/2024 11:17 AM EDT [facility] Eosinophils % 2 % LAB HEMATOLOGY METHOD 12/29/2024 11:17 AM EDT [facility] Basophils % 1 % LAB HEMATOLOGY METHOD 12/29/2024 11:17 AM EDT [facility] Immature Granulocytes % 0 % LAB HEMATOLOGY METHOD 12/29/2024 11:17 AM EDT [facility] Neutrophils Absolute 3.81 1.60 - 6.10 10*3/uL LAB HEMATOLOGY METHOD 12/29/2024 11:17 AM EDT [facility] Lymphocytes Absolute 1.16(L) 1.20 - 3.90 10*3/uL LAB HEMATOLOGY METHOD 12/29/2024 11:17 AM EDT [facility] Monocytes Absolute 0.36 0.30 - 0.90 10*3/uL LAB HEMATOLOGY METHOD 12/29/2024 11:17 AM EDT [facility] Eosinophils Absolute 0.10 0.00 - 0.50 10*3/uL LAB HEMATOLOGY METHOD 12/29/2024 11:17 AM EDT [facility] Basophils Absolute 0.04 0.00 - 0.10 10*3/uL LAB HEMATOLOGY METHOD 12/29/2024 11:17 AM EDT [facility] Immature Granulocytes Absolute 0.01 0.00 - 0.06 10*3/uL LAB HEMATOLOGY METHOD 12/29/2024 11:17 AM EDT [facility] Blood Venous blood specimen / Unknown Venipuncture / Unknown 12/29/2024 11:13 AM EDT 12/29/2024 11:15 AM EDT Narrative [facility] - 12/29/2024 11:17 AM EDT Therapeutic decision making should be based on absolute values, rather than percentages. Eric Montesinos MD LAB BLOOD ORDERABLES Final Result [facility] [address] [place] [address] * (ABNORMAL) CMP (12/29/2024 11:13 AM EDT) Glucose, Plasma 95 74 - 99 mg/dL 12/29/2024 11:37 AM EDT [facility] BUN, Plasma 30(H) 8 - 23 mg/dL 12/29/2024 11:37 AM EDT [facility] Creatinine, Plasma 1.25(H) 0.60 - 1.10 mg/dL 12/29/2024 11:37 AM EDT [facility] BUN/Creatinine Ratio 24 12/29/2024 11:37 AM EDT [facility] Sodium, Plasma 138 136 - 145 mmol/L 12/29/2024 11:37 AM EDT [facility] Potassium, Plasma 2.9(L) 3.6 - 4.9 mmol/L 12/29/2024 11:37 AM EDT [facility] Chloride, Plasma 98 97 - 107 mmol/L 12/29/2024 11:37 AM EDT [facility] CO2, Plasma 26 22 - 29 mmol/L 12/29/2024 11:37 AM EDT [facility] Anion Gap 14 6 - 16 mmol/L 12/29/2024 11:37 AM EDT [facility] Total Calcium, Plasma 9.8 8.9 - 10.2 mg/dL 12/29/2024 11:37 AM EDT [facility] Total Protein 7.1 6.3 - 7.9 g/dL 12/29/2024 11:37 AM EDT [facility] Albumin, Plasma 4.2 3.5 - 5.2 g/dL 12/29/2024 11:37 AM EDT [facility] AST, Plasma 22 10 - 35 U/L 12/29/2024 11:37 AM EDT [facility] ALT, Plasma 20 10 - 35 U/L 12/29/2024 11:37 AM EDT [facility] Alkaline Phosphatase, Plasma 72 46 - 142 U/L 12/29/2024 11:37 AM EDT [facility] Total Bilirubin, Plasma 0.5 0.2 - 1.1 mg/dL 12/29/2024 11:37 AM EDT [facility] eGFRcr 44.8 mL/min/1.7 3m*2 12/29/2024 11:37 AM EDT [facility] Comment:Reported eGFRcr in m L/min/1.73m2 is based the CKD-EPI 2020 equation that does not use a race coefficient. Blood Venous blood specimen / Unknown Venipuncture / Unknown 12/29/2024 11:13 AM EDT 12/29/2024 11:15 AM EDT us Eric Montesinos MD LAB BLOOD ORDERABLES Final Result [facility] [address] [place] [address] * XR OUTSIDE IMAGES (12/29/2024 7:29 AM [...] Final Result from Last 3 Months Insurance [facility] MEDIC[facility] Advance Directives * Full Code (Latest Code Status on File) Date Activated Date Inactivated Comments 10/27/2022 11:51 AM 10/30/2022 2:28 PM Question Answer Comments Patient has decision-making capacity? Yes Care Teams Vertical Lathe Operator Relationship Specialty Start Date End Date Nolberto Streeter MD [address] [facility] [facility] [address] [place] [address] PCP - General 09/28/22 Aniya Kathleen MD [address] [place], [place] [address]D [place] [address] Consulting Physician Radiation Therapy 08/05/23
--- OUTSIDE RECORDS SUMMARY | 2025-01-23 11:07 | XMS_ITS | Encounter Summary ---
Author Organization [facility] Address [address] [place] [address] Care Team Providers Care Supervisor Canvas Products Name Role Phone Nolberto Streeter MD Primary Care Provider [phone] Aniya Kathleen MD Unavailable [phone] Encounter Details Date Type Department Care [...] Consult [place] [facility] [address], 1st [place] [address] Mikhail George MD [address] [place] [address] 03/15/2025 8:00 AM EST Office Visit [facility] [address] [place] [address] Anne Garland MD [address] [facility] [address] [place] [address] 06/07/2025 9:15 AM EST Office Visit [facility] [address] [place] [address] Triston Velasquez MD [address] [place] [address] 06/28/2025 9:30 AM EST Appointment [facility] [id number] [place] [address] Aniya Kathleen MD [address] [place] [address] documented as of this encounter Visit Diagnoses Not on filedocumented in this encounter Additional Health Concerns Assessment Noted Time A fall risk assessment has been complete d for the patient 12/07/2024 8:48 AM EDT A Body Mass Index follow-up plan has been documented for the patient 12/04/2024 9:30 AM EDT documented as of this encounter Care Teams Supervisor [employer] Relationship Specialty Start Date End Date Nolberto tSreeter MD [address] [facility] [address] [place] [address] PCP - General 09/28/22 Aniya Kathleen MD [address] [facility] [address] [place] [address] Consulting Physician Radiation Therapy 08/05/23 documented as of this encounter
--- OUTSIDE RECORDS SUMMARY | 2025-01-23 11:07 | XMS_ITS ---
Author Organization [facility] Address [address] [place] [address] Care Team Providers Care Distribution Systems Serviceperson Name Role Phone Nolberto Streeter MD Primary Care Provider [phone] Aniya Kathleen MD Unavailable [phone] Active Problems Problem Noted Date Diagnosed Date Primary hypertension 12/06/2022 Malignant neoplasm of overlapping sites of cervi x 11/30/2022 Cancer Staging:Clinical:FIGO Stage IIA2(cT2a2, cN0, cM0) - Signed by Anne Garland MD on 12/06/2022 Adenomatous polyp of ascending colon 10/05/2022 Overview (10/05/2022): Added automatically from request for surgery [id number] Current Treatment and Therapy Plans No current plan information found. Past Treatment and Therapy Plans Line Care Plan Name Start Date Discontinue Date Treatment Medications Discontinue Reason Plan Provider (ONC) MED ONC OUTPATIENT ELECTROLYTE REPLACEMENT PROTOCOL 01/11/2023 02/17/2024 No medications scheduled. Therapy Complete Anne Graland MD Oncology Treatment Plan Name Start Date [...] Fraction Dose Fractions Total Dose Plans Planned [id number] 12/29/2022 - 02/07/2023 220 cGy 5 ,500 cGy Reference Points Delivered [id number] 12/29/2022 - 02/07/2023 5,500 cGy Resolved Problems Problem Noted Date Diagnosed Date Resolved Date Malignant neoplasm of cervix , unspecified site 12/09/2022 12/10/2022 Malignant neoplasm of ascending colon 09/29/2022 11/30/2022
== END 2025-01-23 23:59 | disposition home or self-care (01) ==
LOC: RT 11:01
PROVIDERS: PCP Family Medicine; Visit Provider Internal Medicine
DX: Z01.810 Encounter for preprocedural cardiovascular examination (principal); I47.10 Supraventricular tachycardia, unspecified; R55 Syncope and collapse
CPT/HCPCS: 93225; 93227

== ENCOUNTER 2025-01-25 12:52 | Outpatient (CLI) | payer MEDICARE, SELFPAY ==
--- OUTSIDE RECORDS SUMMARY | 2024-12-04 08:05 | XMS_ITS | Encounter Summary ---
Author Organization Healthcare Address [address] [place] [address] Care Team Providers Care Supervisor Veneer Name Role Phone Nolberto Streeter MD Primary Care Provider [phone] Aniya Kathleen MD Unavailable [phone] Encounter Details Date Type Department Care Team (Late st Contact Info) Description 12/04/2024 8:05 AM EDT Ancillary Procedure [facility] [address] [place] [address] Social History Tobacco Use Types Packs/Day Years Used Date Smoking Tobacco: Never Passive Smoke Exposure: Never Smokeless Tobacco: Never Alcohol Use Standard Drinks/Week Comments Never 0 (1 standard drink = 0.6 oz pur e alcohol) PHQ-2 Answer Date Recorded Patient Health Questionnaire-2 Score 0 08/17/2024 PHQ-2A Answer Date Recorded Patient Health Questionnaire-2 Score 0 03/25/2023 Comments No Sex and Gender Information Value Date Recorded Sex Assigned at Female 10/27/2022 8:11 AM EDT Legal Sex Female 3:50 PM EDT Gender Identity Female 10/27/2022 8:11 AM EDT Sexual Orientation Not on file documented as of this encounter Plan of Treatment Upcoming Encounters Date Type Department Care Team (Late Contact Info) Description 01/31/2025 11:30 AM EDT Consult [place] [facility] [address], [address] [place] [address] Mikhail George MD [address] [place] [address] 03/15/2025 8:00 AM EST Office Visit [facility] [address] [place] [address] Anne Garland MD [address] [place] [address] 06/07/2025 9:15 AM EST Office Visit [facility] [address] [place] [address] Triston Velasquez MD [address] [place] [address] 06/28/2025 9:30 AM EST Appointment [facility] [id number] [place] [address] Aniya Kathleen MD [address] [place] [address] documented as of this encounter Procedures Procedure Name Priority Date/Time Associated Diagnosis Comments OCT, OPTIC NERVE - OU - BOTH EYES Routine 12/04/2024 9:24 AM EDT At high risk for open angle glaucoma of both eyes documented in this encounter Results * OCT, Optic Nerve - OU - Both Eyes (12/04/2024 9:24 AM EDT) Anatomical Region Laterality Modality Head Optical Coherenc e Tomography Narrative 12/04/2024 9:24 AM EDT Right Eye Images reviewed and comparison made to baseline. To assess optic nerve function and for use in future follow-up. Reliability: good and adequate. Left Eye Images reviewed and comparison made to baseline. To assess optic nerve function and for use in future follow-up. Reliability: good and adequate. Notes Stable rnfl ou Triston Velasquez MD OPHTH TOMOGRAPHY Final Result documented in this encounter Visit Diagnoses Not on filedocumented in this encounter Additional Health Concerns Assessment Noted Time A fall risk assessment has been complete d for the patient 12/04/2024 8:31 AM EDT A Body Mass Index follow-up plan has been documented for the patient 12/04/2024 9:30 AM EDT documented as of this encounter Care Teams Supervisor Veneer Relationship Specialty Start Date End Date Nolberto Streeter MD [address] [place] [address] [address] [place] [address] PCP - General 09/28/22 Aniya Kathleen MD [address] [facility] [address] [place] [address] Consulting Physician Radiation Therapy 08/05/23 documented as of this encounter
--- OUTSIDE RECORDS SUMMARY | 2024-12-04 08:15 | XMS_ITS | Encounter Summary ---
Author Organization [facility] Address [address] [place] [address] Care Team Providers Care Facility Engineer Name Role Phone Nolberto Streeter MD Primary Care Provider Aniya Kathleen MD Unavailable [phone] Reason for Visit * Reason Comments At high risk for open angle glaucoma of both eyes Encounter Details Date Type Department Care Team (Late st Contact Info) Description 12/04/2024 8:15 AM EDT Office Visit [facility] [address] [place] [address] Triston Velasquez MD [address] [address] At high risk for open [...] Info) Description 01/31/2025 11:30 AM EDT Consult [place] [facility] [address], [address] [place] [address] Mikhail George MD [address] [place] [address] 03/15/2025 8:00 AM EST Office Visit [facility] [address] [address] Anne Garland MD [address] [place] [address] 06/07/2025 9:15 AM EST Office Visit [facility] [address] [place] [address] Triston Velasquez MD [address] [place] [address] 06/28/2025 9:30 AM EST Appointment [facility] [id number] [place] [address] Aniya Kathleen MD [address] [place] [address] documented as of this encounter [...] documented as of this encounter Care Teams Facility Engineer Relationship Specialty Start Date End Date Nolberto Streeter MD 430 [facility] [address] [place] [address] PCP - General 09/28/22 Aniya Kathleen MD 800 [facility] [address] [place] [address] Consulting Physician Radiation Therapy 08/05/23 documented as of this encounter
--- OUTSIDE RECORDS SUMMARY | 2024-12-07 08:29 | XMS_ITS | Encounter Summary ---
Author Organization [facility] Address [address] [place] [address] Care Team Providers Care Emg Technician Name Role Phone Nolberto Streeter MD Primary Care Provider [phone] Aniya Kathleen MD Unavailable [phone] Reason for Visit * Reason Comments Follow-up Encounter Details Date Type Department Care Team (Latest Contact Info) Description 12/07/2024 8:29 AM EDT - 12/07/2024 11:59 PM EDT Hospital Encounter [facility] [id number] [place] [address] Aniya Kathleen MD [address] [place] [address] Malignant neoplasm of overlapping sites [...] vaginla discharge and was seen by a film archivist that, in the pelvic exam identified a [...] four extremities. No edema. Pelvic: Performed with elastic attacher zigzag. normal external genitalia, vagina shows possible post-radiation [...] Consult [place] [facility] [address] [place] [address] Mikhail George MD [address] [place] [address] 03/15/2025 8:00 AM EST Office Visit [facility] [address] [place] [address] Anne Garland MD [address] [facility] [address] [place] [address] 06/07/2025 9:15 AM EST Office Visit [facility] [address] [place] [address] Triston Velasquez MD [address] [place] [address] 06/28/2025 9:30 AM EST Appointment [facility] [id number] [place] [address] Aniya Kathleen MD [address] [place] [address] documented as of this encounter Visit Diagnoses [...] documented as of this encounter Care Teams Emg Technician Relationship Specialty Start Date End Date Nolberto Streeter MD 430 [facility] [address] [place] [address] PCP - General 09/28/22 Aniya Kathleen MD [address] [address] Consulting Physician Radiation Therapy 08/05/23 documented as of this encounter
--- OUTSIDE RECORDS SUMMARY | 2024-12-29 10:19 | XMS_ITS | Encounter Summary ---
Author Organization Healthcare Address [address] [place] [address] Care Team Providers Care Hydrometallurgical Engineer Name Role Phone Nolberto Streeter MD Primary Care Provider Aniya Kathleen MD Unavailable [phone] Reason for Referral * Consultation (Routine) - Authorized Specialty Diagnoses / Procedures Referred By Giana ferrer Referred To Contact Neurosurgery Diagnoses Other closed fracture of eleventh thoracic vertebra, initial encounter ([facility]) Fall, initial encounter Mario Montesinos MD [address] [place] [phone] Phone: tel: fax: Referral ID Status Reason Start Date Expiration Date Visits Requested Visits Authorized [id number] Authorized Specialty Services Required 12/29/2024 06/30/2026 1 1 Reason for Visit * Reason Comments Fall Encounter Details Date Type Department Care Team ([facility] Contact Info) Description 12/29/2024 10:19 AM EDT - 12/29/2024 3:18 PM EDT Emergency [facility] [address] [place] [address] Mario Montesinos MD [address] [place] [phone] Other closed fracture of eleventh thoracic vertebra, initial encounter ([facility]) (Primary Dx); Fall, initial encounter [...] encounter Discharge Instructions * Discharge Instructions* Macy Rajan DO - 12/29/2024 3:04 PM EDT I [...] CONSULT TO NEUROSURGERY Reason For Consult R waldemar Israel Requesting Service: ED Requested Date/Time: 12/29/2024 11:42 [...] PGY-2 Department of Neurosurgery [facility] [1] No family history on file. [...] documented. * ED Provider Notes - Macy Rajan DO - 12/29/2024 10:19 AM EDT Images [...] 1503 Discharge Ambulatory referral to Neurosurgery Ordered MELITON, MACY T Workup was initiated with hematologic labs as [...] fracture of eleventh thoracic vertebra, initial encounter ([facility]) Fall, initial encounter Social Determinates of Health Risks (including Economic Stability, Education and level of understanding, Healthcare access and quality and concerning social factors): None identified on this visit Ultimately, this patient was Was discharged Home (Discharge) The primary encounter diagnosis was Other closed fracture of eleventh thoracic vertebra, initial encounter ([facility]). A diagnosis of Fall, initial [...] 7 days. 42 tablet 12/29/2024 01/05/2025 Macy Rajan, DO Discharge Instructions I have placed a [...] please document in the comment field Macy Rajan DO Resident 12/29/24 1506 Cosigned by Mario [...] OSH scans. Pt takes aspirin. GCS 15. [id number] keppra and 10mg labetolol at osh. Also has right rib fx from fall 2 weeks ago. documented in this encounter Plan of Treatment Upcoming Encounters Date Type Department Care Team (Late st Contact Info) Description 01/31/2025 11:30 AM EDT Consult [place] [facility] [address] [place] [address] Mikhail George MD [address] [place] [address] 03/15/2025 8:00 AM EST Office Visit [facility] [address] [place] [phone] Anne Garland MD [address] [facility] [address] [place] [phone] 06/07/2025 9:15 AM EST Office Visit [facility] [address] [place] [address] Triston Velasquez MD [address] [place] [phone] 06/28/2025 9:30 AM EST Appointment [facility] [id number] [place] [phone] Aniya Kathleen MD [address] [place] [phone] Scheduled Referrals Name Type Priority Associated Diagnoses Order Schedule Discharge Ambulatory referral to Neurosurgery Outpatient Referral Routine Other closed fracture of eleventh thoracic vertebra, initial encounter ([facility]) Fall, initial encounter Expected: 12/29/2024 [...] Total DLP (Dose-Length Product): 2367.61 mGy.cm (accession [id number]), 2367.61 mGy.cm (accession [id number]). Please note: The reported value represents the [...] Total DLP (Dose-Length Product): 2367.61 mGy.cm (accession [id number]),2367.61 mGy.cm (accession [id number]). Please note: The reported valuerepresents the total [...] Total DLP (Dose-Length Product): 2367.61 mGy.cm (accession [id number]), 2367.61 mGy.cm (accession [id number]). Please note: The reported value represents the [...] Total DLP (Dose-Length Product): 2367.61 mGy.cm (accession [id number]),2367.61 mGy.cm (accession [id number]). Please note: The reported valuerepresents the total [...] Total DLP (Dose-Length Product): 2367.61 mGy.cm (accession [id number]), 2367.61 mGy.cm (accession [id number]), 2367.61 mGy.cm (accession [id number]). Please note: The reported value represents the [...] Total DLP (Dose-Length Product): 2367.61 mGy.cm (accession [id number]),2367.61 mGy.cm (accession [id number]), 2367.61 mGy.cm (accession [id number]).Please note: The reported value represents the total [...] 1:21 PM EDT) Anatomical Region Laterality Modality [place] [facility] [place] Computed Tomogr aphy Impressions 12/29/2024 [...] Total DLP (Dose-Length Product): 2367.61 mGy.cm (accession [id number]), 2367.61 mGy.cm (accession [id number]), 2367.61 mGy.cm (accession [id number]). Please note: The reported value represents the [...] Total DLP (Dose-Length Product): 2367.61 mGy.cm (accession [id number]),2367.61 mGy.cm (accession [id number]), 2367.61 mGy.cm (accession [id number]).Please note: The reported value represents the total [...] Total DLP (Dose-Length Product): 2367.61 mGy.cm (accession [id number]), 2367.61 mGy.cm (accession [id number]), 2367.61 mGy.cm (accession [id number]). Please note: The reported value represents the [...] Total DLP (Dose-Length Product): 2367.61 mGy.cm (accession [id number]),2367.61 mGy.cm (accession [id number]), 2367.61 mGy.cm (accession [id number]).Please note: The reported value represents the total [...] HIV 1/2 Differentiation (12/29/2024 11:13 AM EDT) [facility] HIV 1 & 2 Antibody/Antigen Screen Non Reactive Non Reactive 12/29/2024 12:13 PM EDT [facility] Comment:Screening for HIV 1 & 2 antibodies, and P24 antigen is NONREACTIVE. No confirmatory testing is required. Blood Venous blood specimen / Unknown Venipuncture / Unknown 12/29/2024 11:13 AM EDT 12/29/2024 11:32 AM EDT Mario Montesinos MD LAB BLOOD ORDERABLES Final Result [facility] [address] [place] [address] * Hepatitis C Antibody - ED (12/29/2024 11:13 AM EDT) [facility] Hepatitis C Antibody Negative Negative 12/29/2024 12:10 PM EDT [facility] Blood Venous blood specimen / Unknown Venipuncture / Unknown 12/29/2024 11:13 AM EDT 12/29/2024 11:29 AM EDT Mario Montesinos MD LAB BLOOD ORDERABLES Final Result [facility] [address] [place] [address] * (ABNORMAL) CBC w/diff (12/29/2024 11:13 AM EDT) Pathologist [facility] WBC Count 5.48 3.70 - 10.30 10*3/uL LAB HEMATOLOGY METHOD 12/29/2024 11:17 AM EDT [facility] RBC Count 3.92 3.90 - 5.20 10*6/uL LAB HEMATOLOGY METHOD 12/29/2024 11:17 AM EDT [facility] HGB 11.8 11.2 - 15.7 g/dL LAB HEMATOLOGY METHOD 12/29/2024 11:17 AM EDT [facility] HCT 35.4 34.0 - 45.0 % LAB HEMATOLOGY METHOD 12/29/2024 11:17 AM EDT [facility] Platelet Count 236 155 - 369 10*3/uL LAB HEMATOLOGY METHOD 12/29/2024 11:17 AM EDT [facility] MCV 90 79 - 98 fL LAB HEMATOLOGY METHOD 12/29/2024 11:17 AM EDT [facility] MCH 30.1 26.0 - 32.0 pg LAB HEMATOLOGY METHOD 12/29/2024 11:17 AM EDT [facility] MCHC 33.3 30.7 - 35.5 g/dL LAB HEMATOLOGY METHOD 12/29/2024 11:17 AM EDT [facility] RDW 13.1 11.5 - 14.5 % LAB HEMATOLOGY METHOD 12/29/2024 11:17 AM EDT [facility] MPV 8.1(L) 8.8 - 12.5 fL LAB HEMATOLOGY METHOD 12/29/2024 11:17 AM EDT [facility] nRBC 0.0 <=0.0 per 100 WBCs LAB HEMATOLOGY METHOD 12/29/2024 11:17 AM EDT [facility] Differential Type Automated LAB HEMATOLOGY METHOD 12/29/2024 11:17 AM EDT [facility] Neutrophils % 69 % LAB HEMATOLOGY METHOD 12/29/2024 11:17 AM EDT [facility] Lymphocytes % 21 % LAB HEMATOLOGY METHOD 12/29/2024 11:17 AM EDT [facility] Monocytes % 7 % LAB HEMATOLOGY METHOD 12/29/2024 11:17 AM EDT [facility] Eosinophils % 2 % LAB HEMATOLOGY METHOD 12/29/2024 11:17 AM EDT [facility] Basophils % 1 % LAB HEMATOLOGY METHOD 12/29/2024 11:17 AM EDT [facility] Immature Granulocytes % 0 % LAB HEMATOLOGY METHOD 12/29/2024 11:17 AM EDT [facility] Neutrophils Absolute 3.81 1.60 - 6.10 10*3/uL LAB HEMATOLOGY METHOD 12/29/2024 11:17 AM EDT [facility] Lymphocytes Absolute 1.16(L) 1.20 - 3.90 10*3/uL LAB HEMATOLOGY METHOD 12/29/2024 11:17 AM EDT [facility] Monocytes Absolute 0.36 0.30 - 0.90 10*3/uL LAB HEMATOLOGY METHOD 12/29/2024 11:17 AM EDT [facility] Eosinophils Absolute 0.10 0.00 - 0.50 10*3/uL LAB HEMATOLOGY METHOD 12/29/2024 11:17 AM EDT [facility] Basophils Absolute 0.04 0.00 - 0.10 10*3/uL LAB HEMATOLOGY METHOD 12/29/2024 11:17 AM EDT [facility] Immature Granulocytes Absolute 0.01 0.00 - 0.06 10*3/uL LAB HEMATOLOGY METHOD 12/29/2024 11:17 AM EDT [facility] Blood Venous blood specimen / Unknown Venipuncture / Unknown 12/29/2024 11:13 AM EDT 12/29/2024 11:15 AM EDT [facility] - 12/29/2024 11:17 AM EDT Therapeutic decision making should be based on absolute values, rather than percentages. us Mario Montesinos MD LAB BLOOD ORDERABLES Final Result [facility] [address] [place] [address] * (ABNORMAL) CMP (12/29/2024 11:13 AM EDT) Glucose, Plasma 95 74 - 99 mg/dL 12/29/2024 11:37 AM EDT [facility] BUN, Plasma 30(H) 8 - 23 mg/dL 12/29/2024 11:37 AM EDT [facility] Creatinine, Plasma 1.25(H) 0.60 - 1.10 mg/dL 12/29/2024 11:37 AM EDT [facility] BUN/Creatinine Ratio 24 12/29/2024 11:37 AM EDT [facility] Sodium, Plasma 138 136 - 145 mmol/L 12/29/2024 11:37 AM EDT [facility] Potassium, Plasma 2.9(L) 3.6 - 4.9 mmol/L 12/29/2024 11:37 AM EDT [facility] Chloride, Plasma 98 97 - 107 mmol/L 12/29/2024 11:37 AM EDT [facility] CO2, Plasma 26 22 - 29 mmol/L 12/29/2024 11:37 AM EDT [facility] Anion Gap 14 6 - 16 mmol/L 12/29/2024 11:37 AM EDT [facility] Total Calcium, Plasma 9.8 8.9 - 10.2 mg/dL 12/29/2024 11:37 AM EDT [facility] Total Protein 7.1 6.3 - 7.9 g/dL 12/29/2024 11:37 AM EDT [facility] Albumin, Plasma 4.2 3.5 - 5.2 g/dL 12/29/2024 11:37 AM EDT [facility] AST, Plasma 22 10 - 35 U/L 12/29/2024 11:37 AM EDT [facility] ALT, Plasma 20 10 - 35 U/L 12/29/2024 11:37 AM EDT [facility] Alkaline Phosphatase, Plasma 72 46 - 142 U/L 12/29/2024 11:37 AM EDT [facility] Total Bilirubin, Plasma 0.5 0.2 - 1.1 mg/dL 12/29/2024 11:37 AM EDT [facility] eGFRcr 44.8 mL/min/1.7 3m*2 12/29/2024 11:37 AM EDT [facility] Comment:Reported eGFRcr in m L/min/1.73m2 is based the CKD-EPI 2020 equation that does not use a race coefficient. Blood Venous blood specimen / Unknown Venipuncture / Unknown 12/29/2024 11:13 AM EDT 12/29/2024 11:15 AM EDT us Mario Montesinos MD LAB BLOOD ORDERABLES Final Result [facility] [address] [place] [address] documented in this encounter Visit Diagnoses Diagnosis Other closed fracture of eleventh thoracic vertebra, initial encounter ([facility])- Primary Fall, initial encounter documented [...] documented as of this encounter Care Teams Hydrometallurgical Engineer Relationship Specialty Start Date End Date Nolberto Streeter MD [address] [facility] [address] [place] [address] PCP - General 09/28/22 Aniya Kathleen MD [address] [facility] [address] [place] [address] Consulting Physician Radiation Therapy 08/05/23 documented as of this encounter
--- OUTSIDE RECORDS SUMMARY | 2025-01-25 12:56 | XMS_ITS | Encounter Summary ---
Author Organization [facility] Address [address] [place] [address] Care Team Providers Care Printing Manager Name Role Phone Nolberto Streeter MD Primary Care Provider [phone] Aniya Kathleen MD Unavailable [phone] Encounter Details Date Type Department Care Team (Late st Contact Info) Description 08/27/2022 Orders Only External Location [address] [place] [address] Mack Ibrahim MD [address] [place], [place] [id number] Social History Tobacco Use Types Packs/Day Years [...] Consult [place] [facility] [address], 1st [place] [address] Mikhail George MD [address] [place] [address] 03/15/2025 8:00 AM EST Office Visit [facility] [address] [place] [address] Anne Garland MD [address] Singer [address] [place] [address] 06/07/2025 9:15 AM EST Office Visit [facility] [address] [facility] [place] [address] Triston Velasquez MD [address] [facility] [address] [place] [address] 06/28/2025 9:30 AM EST Appointment [facility] [address] [facility]. [id number] [place] [address] Aniya Kathleen MD [id number] [place] [address] documented as of this encounter [...] on filedocumented in this encounter Care Teams Printing Manager Relationship Specialty Start Date End Date Nolberto Streeter MD [address] [place] [address] [address] [place] [address] PCP - General 09/28/22 Aniya Kathleen MD [address] [address] Consulting Physician Radiation Therapy 08/05/23 documented as of this encounter
--- OUTSIDE RECORDS SUMMARY | 2025-01-25 12:56 | XMS_ITS | Encounter Summary ---
Author Organization [facility] Address [address] [place] [address] Care Team Providers Care Media Marketing Manager Name Role Phone Nolberto Streeter MD Primary Care Provider [phone] Aniya Kathleen MD Unavailable [phone] Encounter Details Date Type Department Care [...] Consult [place] [facility] [address], 1[address] [place] [address] Mikhail George MD [address] [place] [address] 03/15/2025 8:00 AM EST Office Visit [facility] [address] [place] [address] Anne Garland MD [address] [facility] [address] [place] [address] 06/07/2025 9:15 AM EST Office Visit [facility] [address] [place] [address] Triston Velasquez MD [address] [place] [address] 06/28/2025 9:30 AM EST Appointment [facility] [id number] [place] [address] Aniya Kathleen MD [address] [place] [address] documented as of this encounter Visit Diagnoses Not on filedocumented in this encounter Additional Health Concerns Assessment Noted Time A fall risk assessment has been complete d for the patient 12/07/2024 8:48 AM EDT A Body Mass Index follow-up plan has been documented for the patient 12/04/2024 9:30 AM EDT documented as of this encounter Care Teams Media Marketing Manager Relationship Specialty Start Date End Date Nolberto Streeter MD [address] [facility] [address] [place] [address] PCP - General 09/28/22 Aniya Kathleen MD 800 [facility] [address] [place] [address] Consulting Physician Radiation Therapy 08/05/23 documented as of this encounter
--- OUTSIDE RECORDS SUMMARY | 2025-01-25 12:56 | XMS_ITS | Encounter Summary ---
Author Organization [facility] Address [address] [place] [address] Care Team Providers Care Director Transportation Name Role Phone Nolberto Streeter MD Primary Care Provider [phone] Aniya Kathleen MD Unavailable [phone] Encounter Details Date Type Department Care Team (Late st Contact Info) Description 12/29/2024 Orders Only External Location [address] [place] [address] Provider, External Social History Tobacco Use Types [...] Consult [place] [facility] [address] 1[address] [place] [address] Mikhail George MD [address] [place] [address] 03/15/2025 8:00 AM EST Office Visit [facility] [address] [facility] [place] [address] Anne Garland MD [address] [facility] [address] [place] [address] 06/07/2025 9:15 AM EST Office Visit [facility] [address] [place] [address] Triston Velasquez MD [address] [place] [address] 06/28/2025 9:30 AM EST Appointment [facility] [id number] [place] [address] Aniya Kathleen MD [address] [place] [address] documented as of this encounter Procedures Procedure [...] documented as of this encounter Care Teams Director Transportation Relationship Specialty Start Date End Date Nolberto Streeter MD [address] [facility] [address] [place] [address] PCP - General 09/28/22 Aniya Kathleen MD 800 [facility] [address] [place] [address] Consulting Physician Radiation Therapy 08/05/23 documented as of this encounter
--- OUTSIDE RECORDS SUMMARY | 2025-01-25 12:56 | XMS_ITS | Encounter Summary ---
Author Organization [facility] Address [address] [place] [address] Care Team Providers Care Trolley Operator Name Role Phone Nolberto Streeter MD Primary Care Provider [phone] Aniya Kathleen MD Unavailable [phone] Encounter Details Date Type Department Care Team (Late st Contact Info) Description 12/04/2024 Telephone [facility] [address] [facility] [address] [place] [address] Aniya Kathleen MD [address] [place] [address] Social History Tobacco Use Types [...] Consult [place] [facility] [address], [address] [place] [address] Mikhail George MD [address] [place] [address] 03/15/2025 8:00 AM EST Office Visit [facility] [address] [place] [address] Anne Garland MD [address] [place] [address] 06/07/2025 9:15 AM EST Office Visit [facility] [address] [place] [address] Triston Velasquez MD [address] [place] [address] 06/28/2025 9:30 AM EST Appointment [facility] [id number] [place] [address] Aniya Kathleen MD [address] [place] [address] documented as of this encounter Visit Diagnoses Not on filedocumented in this encounter Additional Health Concerns Assessment Noted Time A fall risk assessment has been complete d for the patient 12/04/2024 8:31 AM EDT A Body Mass Index follow-up plan has been documented for the patient 12/04/2024 9:30 AM EDT documented as of this encounter Care Teams Trolley Operator Relationship Specialty Start Date End Date Nolberto Streeter MD [address] [place] [address] [address] [place] [address] PCP - General 09/28/22 Aniya Kathleen MD 800 [facility] [address] [place] [address] Consulting Physician Radiation Therapy 08/05/23 documented as of this encounter
--- OUTSIDE RECORDS SUMMARY | 2025-01-25 12:56 | XMS_ITS | Encounter Summary ---
Author Organization Healthcare Address [address] [place] [address] Care Team Providers Care Research Leader Name Role Phone Nolberto Streeter MD Primary Care Provider [phone] Aniya Kathleen MD Unavailable [phone] Encounter Details Date Type Department Care Team (Late st Contact Info) Description 12/29/2024 Orders Only External Location [address] [place] [address] Provider, External Social History Tobacco Use Types [...] Consult [place] [facility] [address], 1[address] [place] [address] Mikhail George MD [address] [place] [address] 03/15/2025 8:00 AM EST Office Visit [facility] [address] [place] [address] Anne Garland MD [address] [facility] [address] [place] [address] 06/07/2025 9:15 AM EST Office Visit [facility] [address] [place] [address] Triston Velasquez MD [address] [place] [address] 06/28/2025 9:30 AM EST Appointment [facility] [id number] [place] [address] Aniya Kathleen MD [address] [place] [address] documented as of this encounter Procedures Procedure [...] documented as of this encounter Care Teams Research Leader Relationship Specialty Start Date End Date Nolberto Streeter MD 430 [facility] [address] [place] [address] PCP - General 09/28/22 Aniya Kathleen MD 800 [facility] [address] [place] [address] Consulting Physician Radiation Therapy 08/05/23 documented as of this encounter
--- OUTSIDE RECORDS SUMMARY | 2025-01-25 12:56 | XMS_ITS | Encounter Summary ---
Author Organization Healthcare Address [address] [place] [address] Care Team Providers Care Chain Maker Loom Control Name Role Phone Nolberto Streeter MD Primary Care Provider [phone] Aniya Kathleen MD Unavailable [phone] Encounter Details Date Type Department Care Team (Late st Contact Info) Description 01/18/2025 Telephone [place] [facility] [address], [address] [place] [address] None, None [address] [id number] Social History Tobacco Use Types Packs/Day Years [...] optimal time of day to reach caller: [phone] Note: Please do not reply to this [...] Info) Description 01/31/2025 11:30 AM EDT Consult [place] [facility] [address], 1[address] [place] [address] Mikhail George MD [address] [place] [address] 03/15/2025 8:00 AM EST Office Visit [facility] [address] [place] [address] Anne Garland MD 800 [facility] [address] Singer [facility] [address] [place] [address] 06/07/2025 9:15 AM EST Office Visit [facility] [address] [place] [address] Triston Velasquez MD [address] [facility] [address] [place] [address] 06/28/2025 9:30 AM EST Appointment [facility] [address] [place] [address] Aniya Kathleen MD 800 [facility] [address] [place] [address] documented as of this encounter Visit Diagnoses Not on filedocumented in this encounter Additional Health Concerns Assessment Noted Time A fall risk assessment has been complete d for the patient 12/07/2024 8:48 AM EDT A Body Mass Index follow-up plan has been documented for the patient 12/04/2024 9:30 AM EDT documented as of this encounter Care Teams Chain Maker Loom Control Relationship Specialty Start Date End Date Nolberto Streeter MD [address] [place] [address] [address] [place] [address] PCP - General 09/28/22 Aniya Kathleen MD [address] [place] [address] [address] [place] [address] Consulting Physician Radiation Therapy 08/05/23 documented as of this encounter
--- OUTSIDE RECORDS SUMMARY | 2025-01-25 12:56 | XMS_ITS | Encounter Summary ---
Author Organization Healthcare Address [address] [place] [address] Care Team Providers Care Campus Interviews Intern Name Role Phone Nolberto Streeter MD Primary Care Provider [phone] Aniya Kathleen MD Unavailable [phone] Encounter Details Date Type Department Care Team (Late st Contact Info) Description 12/29/2024 Orders Only External Location [address] [place] [address] Provider, External Social History Tobacco Use Types [...] Consult [place] [facility] [address], 1st [place] [address] Mikhail George MD [address] [place] [address] 03/15/2025 8:00 AM EST Office Visit [facility] [address] [facility] [address] Anne Garland MD [address] [facility] [address] [place] [address] 06/07/2025 9:15 AM EST Office Visit [facility] [address] [place] [address] Triston Velasquez MD [address] [place] [address] 06/28/2025 9:30 AM EST Appointment [facility] [id number] [place] [address] Aniya Kathleen MD [address] [place] [address] documented as of this encounter Procedures Procedure [...] documented as of this encounter Care Teams Campus Interviews Intern Relationship Specialty Start Date End Date Nolberto Streeter MD 430 [facility] [address] [place] [address] PCP - General 09/28/22 Aniya Kathleen MD 800 [facility] [address] [place] [address] Consulting Physician Radiation Therapy 08/05/23 documented as of this encounter
--- OUTSIDE RECORDS SUMMARY | 2025-01-25 12:56 | XMS_ITS | Encounter Summary ---
Author Organization Healthcare Address [address] [place] [address] Care Team Providers Care Switchboard Operator Assistant Name Role Phone Nolberto Streeter MD Primary Care Provider [phone] Aniya Kathleen MD Unavailable Encounter Details Date Type Department Care Team (Late st Contact Info) Description 12/29/2024 Orders Only External Location [address] [place] [address] Provider, External Social History Tobacco Use Types [...] Consult [place] [facility] [address], 1[address] [place] [address] Mikhail George MD [address] [place] [address] 03/15/2025 8:00 AM EST Office Visit [facility] [address] [place] [address] Anne Garland MD [address] [facility] [address] [place] [address] 06/07/2025 9:15 AM EST Office Visit [facility] [address] [place] [address] Triston Velasquez MD [address] [place] [address] 06/28/2025 9:30 AM EST Appointment [facility] [id number] [place] [address] Aniya Kathleen MD [address] [place] [address] documented as of this encounter Procedures Procedure [...] documented as of this encounter Care Teams Switchboard Operator Assistant Relationship Specialty Start Date End Date Nolberto Streeter MD 430 [facility] [address] [place] [address] PCP - General 09/28/22 Ainya Kathleen MD 800 [facility] [address] [place] [address] Consulting Physician Radiation Therapy 08/05/23 documented as of this encounter
--- OUTSIDE RECORDS SUMMARY | 2025-01-25 12:56 | XMS_ITS | Encounter Summary ---
Author Organization Healthcare Address [address] [place] [address] Care Team Providers Care Sheep Or Calf Grader Name Role Phone Nolberto Streeter MD Primary Care Provider [phone] Aniya Kathleen MD Unavailable [phone] Encounter Details Date Type Department Care [...] Consult [place] [facility] [address], 1[address] [place] [address] Mikhail George MD [address] [place] [address] 03/15/2025 8:00 AM EST Office Visit [facility] [address] [place] [address] Anne Garland MD [address] Singer dg [address] [place] [address] 06/07/2025 9:15 AM EST Office Visit [facility] [address] [facility] [place] [address] Triston Velasquez MD 110 [facility] [address] [place] [address] 06/28/2025 9:30 AM EST Appointment [facility] 800 [facility] [id number] [place] [address] Aniya Kathleen MD 800 [facility] [address] [place] [address] documented as of this encounter Visit Diagnoses Not on filedocumented in this encounter Additional Health Concerns Assessment Noted Time A fall risk assessment has been complete d for the patient 12/04/2024 8:31 AM EDT A Body Mass Index follow-up plan has been documented for the patient 12/04/2024 9:30 AM EDT documented as of this encounter Care Teams Sheep Or Calf Grader Relationship Specialty Start Date End Date Nolberto Streeter MD [address] [place] [address] [address] [place] [address] PCP - General 09/28/22 Aniya Kathleen MD 800 [facility] [address] [place] [address] Consulting Physician Radiation Therapy 08/05/23 documented as of this encounter
--- OUTSIDE RECORDS SUMMARY | 2025-01-25 12:56 | XMS_ITS | Encounter Summary ---
Author Organization Healthcare Address [address] [place] [address] Care Team Providers Care Inclusion Specialist Name Role Phone Nolberto Streeter MD Primary Care Provider [phone] Aniya Kathleen MD Unavailable [phone] Encounter Details Date Type Department Care Team (Late st Contact Info) Description 09/28/2022 Lab Requisition [facility] [address] [place] [address] Heriberto Gupta MD [address] [facility] [address] [place] [address] Malignant neoplasm of colon, unspecified [...] Consult [place] [facility] [address], 1st [place] [address] Mikhail George MD [address] [place] [address] 03/15/2025 8:00 AM EST Office Visit [facility] [address] [place] [address] Anne Garland MD [address] [facility] [address] [place] [address] 06/07/2025 9:15 AM EST Office Visit [facility] [address] [place] [address] Triston Velasquez MD [address] [place] [address] 06/28/2025 9:30 AM EST Appointment [facility] [id number] [place] [address] Aniya Kathleen MD [address] [place] [address] documented as of this encounter Procedures Procedure Name Priority Date/Time Associated Diagnosis Comments SURGICAL PATHOLOGY CONSULT Routine 09/28/2022 1:02 PM EDT Malignant neoplasm of colon, unspecified (CMS/HCC) documented in this encounter Results * Surgical Pathology Consult (09/28/2022 1:02 PM EDT) Case Report Sug[facility] Pathology Consult Case: [id number] Authorizing Provider: Heriberto Gupta MD Collected: 09/28/2022 1302 Ordering Location: [facility] Lab Received: 09/28/2022 1302 Pathologist: Jose Antonio Victor MD Specimen: Colon, [id number] 10/06/2022 6:[address] [facility] Final Diagnosis ASCENDING COLON, MASS, BIOPSY (OUTSIDE: [id number]; COLLECTION: 08/27/2022): - TUBULAR ADENOMA; LOW GRADE DYSPLASIA ONLY (SEE COMMENT) 10/06/2022 6:56 PM EDT [facility] at 1856 EDT Comment The apparent impression of a mass lesion is noted. Sections reveal the presence of low grade dysplasia, harboring some villous features which may indicate an advanced polyp, but no evidence of high grade dysplasia or carcinoma. Given this discordance, the specimen may not be entirely education courses sales representative of the targeted lesion. 10/06/2022 6:56 PM EDT [facility] Clinical Information C18.9 - Malignant neoplasm of colon, unspecified [ICD-10-CM] 10/06/2022 6:[address] [facility] Gross Description A. [id number] Received along with a corresponding pathology report from [facility] are 1 slide labeled outside case: [id number] collected on 08/27/2022. 10/06/2022 6:56 PM EDT [facility] Note: A resident was involved in the service. I attest I examined the relevant preparations for the specimens and confirmed the diagnosis or interpretation. 10/06/2022 6:56 PM EDT [facility] Tissue Colon structure / Unknown 09/28/2022 1:02 PM EDT 09/28/2022 1:02 PM EDT us Heriberto Gupta MD LAB PATHOLOGY ORDERABLES Final Result [facility] [address] [place] [address] documented in this encounter Visit Diagnoses Diagnosis Malignant neoplasm of colon, unspecified (CMS/HCC) documented in this encounter Additional Health Concerns Assessment Noted Time A fall risk assessment has been complete d for the patient 09/28/2022 8:00 AM EDT A Body Mass Index follow-up plan has been documented for the patient 10/05/2022 9:28 AM EDT documented as of this encounter Care Teams Inclusion Specialist Relationship Specialty Start Date End Date Nolberto Streeter MD 430 [facility] [address] [place] [address] PCP - General 09/28/22 Aniya Kathleen MD [address] [place] [address] Consulting Physician Radiation Therapy 08/05/23 documented as of this encounter
--- OUTSIDE RECORDS SUMMARY | 2025-01-25 12:56 | XMS_ITS ---
Author Organization [facility] Address [address] [place] [address] Care Team Providers Care Central Office Installer Name Role Phone Nolberto Streeter MD Primary Care Provider [phone] Aniya Kathleen MD Unavailable [phone] Active Problems Problem Noted Date Diagnosed Date Primary hypertension 12/06/2022 Malignant neoplasm of overlapping sites of cervi x 11/30/2022 Cancer Staging:Clinical:FIGO Stage IIA2(cT2a2, cN0, cM0) - Signed by Anne Garland MD on 12/06/2022 Adenomatous polyp of ascending colon 10/05/2022 Overview (10/05/2022): Added automatically from request for surgery [id number] Current Treatment and Therapy Plans No current [...] Fraction Dose Fractions Total Dose Plans Planned [id number] 12/29/2022 - 02/07/2023 220 cGy 5 ,500 cGy Reference Points Delivered [id number]_55Gy 12/29/2022 - 02/07/2023 5,500 cGy Resolved Problems Problem Noted Date Diagnosed Date Resolved Date Malignant neoplasm of cervix , unspecified site 12/09/2022 12/10/2022 Malignant neoplasm of ascending colon 09/29/2022 11/30/2022
--- OUTSIDE RECORDS SUMMARY | 2025-01-25 12:56 | XMS_ITS | Encounter Summary ---
Author Organization Healthcare Address [address] [place] [address] Care Team Providers Care Library Science Professor Name Role Phone Nolberto Streeter MD Primary Care Provider [phone] Aniya Kathleen MD Unavailable [phone] Encounter Details Date Type Department Care [...] Consult [place] [facility] [address], 1[address] [place] [address] Mikhail George MD [address] [place] [address] 03/15/2025 8:00 AM EST Office Visit [facility] [address] [place] [address] Anne Garland MD [address] Singer dg [address] [place] [address] 06/07/2025 9:15 AM EST Office Visit [facility] [address] [place] [address] Triston Velasquez MD 110 [facility] [address] [place] [address] 06/28/2025 9:30 AM EST Appointment [facility] 800 [facility]. [address] [place] [address] Aniya Kathleen MD 800 [facility] [address] [place] [address] documented as of this encounter Visit Diagnoses Not on filedocumented in this encounter Additional Health Concerns Assessment Noted Time A fall risk assessment has been complete d for the patient 12/07/2024 8:48 AM EDT A Body Mass Index follow-up plan has been documented for the patient 12/04/2024 9:30 AM EDT documented as of this encounter Care Teams Library Science Professor Relationship Specialty Start Date End Date Nolberto Streeter MD [address] [place] [address] [address] [place] [address] PCP - General 09/28/22 Aniya Kathleen MD 800 [facility] [address] [place] [address] Consulting Physician Radiation Therapy 08/05/23 documented as of this encounter
--- OUTSIDE RECORDS SUMMARY | 2025-01-25 12:56 | XMS_ITS | Encounter Summary ---
Author Organization Healthcare Address [address] [id number] Care Team Providers Care Naval Architect Specialist Name Role Phone Nolberto Streeter MD Primary Care Provider Aniya Kathleen MD Unavailable [phone] Encounter Details Date Type Department Care Team (Late st Contact Info) Description 09/30/2022 Lab Requisition [facility] [address] [place] [address] Anne Garland MD [address] [place] [address] Other specified noninflammatory disorders of uterus Social [...] Consult [place] [facility] [address], 1[address] [place] [address] Mikhail George MD [address] [place] [address] 03/15/2025 8:00 AM EST Office Visit [facility] [address] [place] [address] Anne Garland MD [address] Vik[address] Singer [facility] [address] [place] [address] 06/07/2025 9:15 AM EST Office Visit [facility] [address] [place] [address] Triston Velasquez MD [address] [facility] [address] [place] [address] 06/28/2025 9:30 AM EST Appointment [facility] [id number] [place] [address] Aniya Kathleen MD [address] [place] [address] documented as of this encounter Procedures Procedure Name Priority Date/Time Associated Diagnosis Comments SURGICAL PATHOLOGY CONSULT Routine 09/30/2022 10:59 AM EDT Other specified noninflammatory disorders of uterus documented in this encounter Results * Surgical Pathology Consult (09/30/2022 10:59 AM EDT) Case Report Sugical Pathology Consult Case: [id number] Authorizing Provider: Anne Garland MD Collected: 09/30/2022 1051 Ordering Location: [facility] Lab Received: 09/30/2022 1057 Pathologist: Xiomara Almonte MD Specimen: Cervix, [id number] 10/05/2022 3:42 PM EDT [facility] Final Diagnosis A. CERVIX, BIOPSY (OUTSIDE SLIDES [id number], 09/16/22): - AT LEAST ENDOCERVICAL ADENOCARCINOMA IN SITU; NO DEFINITE INVASION IDENTIFIED 10/05/2022 3:42 PM EDT [facility] at 1542 EDT Comment The tumor is morphologically similar to the subsequent biopsy [id number]. Please refer to that report for the immunohistochemical results. 10/05/2022 3:42 PM EDT [facility] Clinical Information N85.8 - Other specified noninflammatory disorders of uterus [ICD-10-CM] 10/05/2022 3:42 PM EDT [facility] Gross Description A. [id number] Received along with a corresponding pathology report from [facility] is 1 slide labeled outside case: [id number] collected on 09/16/2022. 10/05/2022 3:42 PM EDT [facility] Note: A resident was involved in the service. I attest I examined the relevant preparations for the specimens and confirmed the diagnosis or interpretation. 10/05/2022 3:42 PM EDT [facility] Tissue Cervix uteri structure / Unknown 09/30/2022 10:59 AM EDT 09/30/2022 10:59 AM EDT Anne Garland MD LAB PATHOLOGY ORDERABLES Final Result Performing Organization Address City/State/[facility] Phone Number [facility] [address] [place] [address] documented in this encounter Visit Diagnoses Diagnosis Other specified noninflammatory disorders of uterus documented in this encounter Additional Health Concerns Assessment Noted Time A fall risk assessment has been complete d for the patient 09/29/2022 12:27 PM EDT A Body Mass Index follow-up plan has been documented for the patient 10/05/2022 9:28 AM EDT documented as of this encounter Care Teams Naval Architect Specialist Relationship Specialty Start Date End Date Nolberto Streeter MD [address] [place] [address] [address]1 [address]1 [place] [address] PCP - General 09/28/22 Aniya Kathleen MD [address] [address] Consulting Physician Radiation Therapy 08/05/23 documented as of this encounter
--- OUTSIDE RECORDS SUMMARY | 2025-01-25 12:57 | XMS_ITS | Clinical Summary ---
Author Organization [facility] Address [address] [place] [address] Care Team Providers Care Business Reporting Developer Name Role Phone Nolberto Streeter MD Primary Care Provider [phone] Aniya Kathleen MD Unavailable [phone] Allergies Active Allergy Reactions Criticality Noted Date Comments Hydrochlorothiazide Dizziness,Other - pl ease document in the comment field Low 08/27/2022 Medications atenolol (Tenormin) 25 MG tablet Take 1 tablet (25 mg) by mouth 2 (two) times a day. 07/11/19 Active aspirin 81 MG EC tablet Take 1 tablet (81 mg) by mouth daily. Active Multiple Vitamins-Boiler Assistant Operator als (Womens Multi Vitamin & Mineral) tablet [...] drop before bedtime. 10 mL 6 08/01/19 Active dorzolamide-ti molol (Cosopt) 2-0.5 % ophthalmic solution Administer 1 drop into both eyes 2 times a day. 10 mL 6 12/05/19 25 Active methocarbamol (Robaxin) 750 MG tablet Take 2 tablets by mouth 3 times a day as needed for muscle spasms for up to 7 days. 42 tablet 12/30/19 Active methocarbamol (Robaxin) 750 MG tablet Take [...] (10/05/2022): Added automatically from request for surgery [id number] Resolved Problems Problem Noted Date Diagnosed Date Resolved Date Malignant neoplasm of cervix , unspecified site 12/09/2022 12/10/2022 Malignant neoplasm of ascending colon 09/29/2022 11/30/2022 Encounters Date Type Department Care Team Description 01/18/2025 Telephone [facility] [address] [place] [address] None, None 12/29/2024 10:19 AM EDT - 12/29/2024 3:18 PM EDT Emergency [facility] [address] [place] [address] Eric Montesinos MD Other closed fracture of eleventh thoracic vertebra, initial encounter ([facility]) (Primary Dx); Fall, initial encounter Discharge Disposition: Home or Self Care 12/29/2024 Travel 12/29/2024 Orders Only External Location [address] [place] [id number] Provider, External 12/29/2024 Orders Only External Location [address] [place] [id number] Provider, External 12/29/2024 Orders Only External Location [address] [place] [address] Provider, External 12/29/2024 Orders Only External Location [address] [place] [address] Provider, External 12/07/2024 8:29 AM EDT - 12/07/2024 11:59 PM EDT Hospital Encounter [facility] [address] [address] Aniya Kathleen MD Malignant neoplasm of overlapping sites of cervix ([facility]) (Primary Dx) Discharge Disposition: Still a Patient 12/07/2024 Travel 12/04/2024 8:15 AM EDT Office Visit [facility] [address] [place] [id number] Triston Velasquez MD At high risk for open angle glaucoma of both eyes (Primary Dx); Pseudophakia of both eyes 12/04/2024 8:05 AM EDT Ancillary Procedure [facility] [address] [place] [address] 12/04/2024 Telephone [facility] [address] [address] Aniya Kathleen MD 12/04/2024 Travel [...] Consult [place] [facility] [address] [place] [address] Mikhail George MD [address] [place] [address] 03/15/2025 8:00 AM EST Office Visit [facility] [address] [place] [address] Anne Garland MD [address] Singer [facility] [address] [place] [address] 06/07/2025 9:15 AM EST Office Visit [facility] [address] [place] [address] Triston Velasquez MD [address] [place] [address] 06/28/2025 9:30 AM EST Appointment [facility] [address] [place] [address] Aniya Kathleen MD [address] [place] [address] Health Maintenance Due Date Last Done Comments [facility]-Bone Density Scan 1950 [facility]-Medicare Annual Wellness (AWV) 1950 [facility]-/Child/Adol SDOH Screenings 1950 [facility]- SDOH Screenings 1966 [facility]-Adult SDOH Screenings 1966 [facility]-Pneumococcal Vaccine: 50+ Years (1 of 2 - PCV) 12/14/1967 [facility]-Zoster Vaccines (1 of 2) 12/14/1967 [facility]-RSV Vaccine: 60+ Years or (1 - 1-dose 75+ series) 12/14/2023 [id number] Vaccine (8 - Moderna risk 2023- season) [...] AM EDT CT NEURO OUTSIDE IMAGES 12/30/19 25 7:[address] NEURO OUTSIDE IMAGES [...] Total DLP (Dose-Length Product): 2367.61 mGy.cm (accession [id number]), 2367.61 mGy.cm (accession [id number]). Please note: The reported value represents the [...] Total DLP (Dose-Length Product): 2367.61 mGy.cm (accession [id number]),2367.61 mGy.cm (accession [id number]). Please note: The reported valuerepresents the total [...] on 12/29/2024 2:11 PM Eric Montesinos MD IM CT PROCEDURES Final Res ult * CT [...] Total DLP (Dose-Length Product): 2367.61 mGy.cm (accession [id number]), 2367.61 mGy.cm (accession [id number]). Please note: The reported value represents the [...] Total DLP (Dose-Length Product): 2367.61 mGy.cm (accession [id number]),2367.61 mGy.cm (accession [id number]). Please note: The reported valuerepresents the total [...] Total DLP (Dose-Length Product): 2367.61 mGy.cm (accession [id number]), 2367.61 mGy.cm (accession [id number]), 2367.61 mGy.cm (accession [id number]). Please note: The reported value represents the [...] Total DLP (Dose-Length Product): 2367.61 mGy.cm (accession [id number]),2367.61 mGy.cm (accession [id number]), 2367.61 mGy.cm (accession [id number]).Please note: The reported value represents the total [...] Total DLP (Dose-Length Product): 2367.61 mGy.cm (accession [id number]), 2367.61 mGy.cm (accession [id number]), 2367.61 mGy.cm (accession [id number]). Please note: The reported value represents the [...] Total DLP (Dose-Length Product): 2367.61 mGy.cm (accession [id number]),2367.61 mGy.cm (accession [id number]), 2367.61 mGy.cm (accession [id number]).Please note: The reported value represents the total [...] on 12/29/2024 1:47 PM Eric Montesinos MD IMG CT PROCEDURES Final Res ult * CT Angio Head (12/29/2024 1:21 PM EDT) Anatomical Region Laterality Modality [place] Computed Tomogr aphy Impressions 12/29/2024 [...] Total DLP (Dose-Length Product): 2367.61 mGy.cm (accession [id number]), 2367.61 mGy.cm (accession [id number]), 2367.61 mGy.cm (accession [id number]). Please note: The reported value represents the [...] Total DLP (Dose-Length Product): 2367.61 mGy.cm (accession [id number]),2367.61 mGy.cm (accession [id number]), 2367.61 mGy.cm (accession [id number]).Please note: The reported value represents the total [...] HIV 1/2 Differentiation (12/29/2024 11:13 AM EDT) [facility] HIV 1 & 2 Antibody/Antigen Screen Non Reactive Non Reactive 12/29/2024 12:13 PM EDT [facility] Comment:Screening for HIV 1 & 2 antibodies, and P24 antigen is NONREACTIVE. No confirmatory testing is required. Blood Venous blood specimen / Unknown Venipuncture / Unknown 12/29/2024 11:13 AM EDT 12/29/2024 11:32 AM EDT Eric Montesinos MD LAB BLOOD ORDERABLES Final Result Performing Organization Address City/[facility]/ZIP Co de Phone Number [facility] [address] [place] [address] * Hepatitis C Antibody - ED (12/29/2024 11:13 AM EDT) [facility] Hepatitis C Antibody Negative Negative 12/29/2024 12:10 PM EDT [facility] Blood Venous blood specimen / Unknown Venipuncture / Unknown 12/29/2024 11:13 AM EDT 12/29/2024 11:29 AM EDT Eric Montesinos MD LAB BLOOD ORDERABLES Final Result Performing Organization Address City/[facility]/ZIP Co de Phone Number [facility] [address] [place] [address] * (ABNORMAL) CBC w/diff (12/29/2024 11:13 AM EDT) [facility] WBC Count 5.48 3.70 - 10.30 10*3/uL LAB HEMATOLOGY METHOD 12/29/2024 11:17 AM EDT [facility] RBC Count 3.92 3.90 - 5.20 10*6/uL LAB HEMATOLOGY METHOD 12/29/2024 11:17 AM EDT [facility] HGB 11.8 11.2 - 15.7 g/dL LAB HEMATOLOGY METHOD 12/29/2024 11:17 AM EDT [facility] HCT 35.4 34.0 - 45.0 % LAB HEMATOLOGY METHOD 12/29/2024 11:17 AM EDT [facility] Platelet Count 236 155 - 369 10*3/uL LAB HEMATOLOGY METHOD 12/29/2024 11:17 AM EDT [facility] MCV 90 79 - 98 fL LAB HEMATOLOGY METHOD 12/29/2024 11:17 AM EDT [facility] MCH 30.1 26.0 - 32.0 pg LAB HEMATOLOGY METHOD 12/29/2024 11:17 AM EDT [facility] MCHC 33.3 30.7 - 35.5 g/dL LAB HEMATOLOGY METHOD 12/29/2024 11:17 AM EDT [facility] RDW 13.1 11.5 - 14.5 % LAB HEMATOLOGY METHOD 12/29/2024 11:17 AM EDT [facility] MPV 8.1(L) 8.8 - 12.5 fL LAB HEMATOLOGY METHOD 12/29/2024 11:17 AM EDT [facility] nRBC 0.0 <=0.0 per 100 WBCs LAB HEMATOLOGY METHOD 12/29/2024 11:17 AM EDT [facility] Differential Type Automated LAB HEMATOLOGY METHOD 12/29/2024 11:17 AM EDT [facility] Neutrophils % 69 % LAB HEMATOLOGY METHOD 12/29/2024 11:17 AM EDT [facility] Lymphocytes % 21 % LAB HEMATOLOGY METHOD 12/29/2024 11:17 AM EDT [facility] Monocytes % 7 % LAB HEMATOLOGY METHOD 12/29/2024 11:17 AM EDT [facility] Eosinophils % 2 % LAB HEMATOLOGY METHOD 12/29/2024 11:17 AM EDT [facility] Basophils % 1 % LAB HEMATOLOGY METHOD 12/29/2024 11:17 AM EDT [facility] Immature Granulocytes % 0 % LAB HEMATOLOGY METHOD 12/29/2024 11:17 AM EDT [facility] Neutrophils Absolute 3.81 1.60 - 6.10 10*3/uL LAB HEMATOLOGY METHOD 12/29/2024 11:17 AM EDT [facility] Lymphocytes Absolute 1.16(L) 1.20 - 3.90 10*3/uL LAB HEMATOLOGY METHOD 12/29/2024 11:17 AM EDT [facility] Monocytes Absolute 0.36 0.30 - 0.90 10*3/uL LAB HEMATOLOGY METHOD 12/29/2024 11:17 AM EDT [facility] Eosinophils Absolute 0.10 0.00 - 0.50 10*3/uL LAB HEMATOLOGY METHOD 12/29/2024 11:17 AM EDT [facility] Basophils Absolute 0.04 0.00 - 0.10 10*3/uL LAB HEMATOLOGY METHOD 12/29/2024 11:17 AM EDT [facility] Immature Granulocytes Absolute 0.01 0.00 - 0.06 10*3/uL LAB HEMATOLOGY METHOD 12/29/2024 11:17 AM EDT [facility] Blood Venous blood specimen / Unknown Venipuncture / Unknown 12/29/2024 11:13 AM EDT 12/29/2024 11:15 AM EDT Narrative [facility] - 12/29/2024 11:17 AM EDT Therapeutic decision making should be based on absolute values, rather than percentages. Eric Montesinos MD LAB BLOOD ORDERABLES Final Result [facility] [address] [place] [address] * (ABNORMAL) CMP (12/29/2024 11:13 AM EDT) Glucose, Plasma 95 74 - 99 mg/dL 12/29/2024 11:37 AM EDT [facility] BUN, Plasma 30(H) 8 - 23 mg/dL 12/29/2024 11:37 AM EDT [facility] Creatinine, Plasma 1.25(H) 0.60 - 1.10 mg/dL 12/29/2024 11:37 AM EDT [facility] BUN/Creatinine Ratio 24 12/29/2024 11:37 AM EDT [facility] Sodium, Plasma 138 136 - 145 mmol/L 12/29/2024 11:37 AM EDT [facility] Potassium, Plasma 2.9(L) 3.6 - 4.9 mmol/L 12/29/2024 11:37 AM EDT [facility] Chloride, Plasma 98 97 - 107 mmol/L 12/29/2024 11:37 AM EDT [facility] CO2, Plasma 26 22 - 29 mmol/L 12/29/2024 11:37 AM EDT [facility] Anion Gap 14 6 - 16 mmol/L 12/29/2024 11:37 AM EDT [facility] Total Calcium, Plasma 9.8 8.9 - 10.2 mg/dL 12/29/2024 11:37 AM EDT [facility] Total Protein 7.1 6.3 - 7.9 g/dL 12/29/2024 11:37 AM EDT [facility] Albumin, Plasma 4.2 3.5 - 5.2 g/dL 12/29/2024 11:37 AM EDT [facility] AST, Plasma 22 10 - 35 U/L 12/29/2024 11:37 AM EDT [facility] ALT, Plasma 20 10 - 35 U/L 12/29/2024 11:37 AM EDT [facility] Alkaline Phosphatase, Plasma 72 46 - 142 U/L 12/29/2024 11:37 AM EDT [facility] Total Bilirubin, Plasma 0.5 0.2 - 1.1 mg/dL 12/29/2024 11:37 AM EDT [facility] eGFRcr 44.8 mL/min/1.7 3m*2 12/29/2024 11:37 AM EDT [facility] Comment:Reported eGFRcr in m L/min/1.73m2 is based the CKD-EPI 2020 equation that does not use a race coefficient. Blood Venous blood specimen / Unknown Venipuncture / Unknown 12/29/2024 11:13 AM EDT 12/29/2024 11:15 AM EDT us Eric Montesinos MD LAB BLOOD ORDERABLES Final Result [facility] [address] [place] [address] * XR OUTSIDE IMAGES (12/29/2024 7:29 AM [...] good and adequate. Notes Stable rnfl ou us Triston Velasquez MD OPHTH TOMOGRAPHY Final Result from Last 3 Months Insurance [facility] MEDICARE Advance Directives * Full Code (Latest Code Status on File) Date Activated Date Inactivated Comments 10/27/2022 11:51 AM 10/30/2022 2:28 PM Question Answer Comments Patient has decision-making capacity? Yes Care Teams Business Reporting Developer Relationship Specialty Start Date End Date Nolberto Streeter MD [address] [facility] [address] [place] [address] PCP - General 09/28/22 Aniya Kathleen MD [address] [place] [address] [address] [place] [address] Consulting Physician Radiation Therapy 08/05/23
== END 2025-01-25 23:59 | disposition home or self-care (01) ==
LOC: RT 12:54
PROVIDERS: PCP Family Medicine; Visit Provider Internal Medicine
DX: Z01.810 Encounter for preprocedural cardiovascular examination (principal); I49.1 Atrial premature depolarization; I47.19 Other supraventricular tachycardia; I49.3 Ventricular premature depolarization
CPT/HCPCS: 93270

== ENCOUNTER 2025-02-22 06:03 | Day surgery (SDC) | payer MEDICARE, SELFPAY ==
[2025-02-21 12:58] VITALS: BMI 26.9
--- NOTE | 2025-02-22 06:04 | P.HP_ITS ---
HPI HPI HPI: Patient is a 74-year-old female whom I had performed colonoscopy on for positive Cologuard on 08/27/2022. She was found to have Jeff circumferential irregular colon mass in the ascending colon with biopsies revealing only tubular adenoma. It was concerning that this was sampling error and she had a colon cancer present. She ultimately underwent right hemicolectomy for colon cancer at [facility] by Dr. Heriberto Gupta. She also has been cared for by the gynecologic oncology team at [facility]. Consensus was for follow-up colonoscopy within 1 year. I performed colonoscopy on 06/24/2023 which revealed rare diverticulosis with no evidence of any polyps or local recurrence. Her oncology team requested 2 colonoscopies within 1 year for assurance. I performed another colonoscopy on 02/10/2024 which revealed no evidence of any recurrence at the ileocolic anastomosis but granulation tissue was biopsied. There was rare sigmoid diverticulosis and internal anal papillae. [facility] Disclaimer: The information contained in this section may have been updated after the patient was seen, as this information can be updated by other users. Medical History Fatigue Dizziness Impacted cerumen of both ears Hearing loss COVID-19 Colon cancer Cervical cancer Adenocarcinoma in situ of cervix Cervical mass Hyperlipidemia Hypertension Surgical History History of colon resection History of colonoscopy History of cholecystectomy Family History Other No significant family history Social History (Updated 02/22/25 @ 06:37 by Melody Alicea RN) Smoking Status: Never smoker alcohol intake: never substance use type: denies use current occupational status: unemployed Travel in the last 8 weeks?: None caffeine: Yes Have you lived/traveled outside US in past 30 days?: No Contact w/someone who lives/traveled outside US past 30 days?: No Exposure to someone with infectious disease in past 14 days?: No Do you have a fever (greater than 100.4 F or 38 C)?: No Have you tested positive for COVID-19?: No Exposed to someone with COVID-19 in past 14 days?: No Do you have a sore throat?: No Do you have a cough?: No Do you have any weakness?: No Are you experiencing any nausea/vomitting?: No Do you have any diarrhea?: No Are you experiencing any unusual bleeding?: No Do you have any muscle aches/pain?: No Do you have any abdominal pain?: No Are you experiencing loss of taste or smell?: No Other Medical History Have you received the Pneumonia Vaccine: Yes Meds Home Medications and Allergies Home Medications ?Medication ?Instructions ?Recorded ?Confirmed ?Type aspirin 81 mg capsule 81 mg PO DAILY 08/27/2202/06 History atorvastatin 20 mg tablet 20 mg PO HS 08/27/22 5 History multivitamin (Daily Multi-Vitamin 1 tab PO DAILY 07/0302/22/25 History tablet) dorzolamide 22.3 mg-timolol 6.8 1 drp Eye-Both BID 02/22/25 History mg/mL eye drops New Prescriptions to Start Prescriptions: Allergies Allergy/AdvReac Type Severity Reaction Status Date / Time hydrochlorothiazide Allergy Unknown SYNCOPE Verified 02/22/25 06:53 (HYDROCHLOROTHIAZIDE) Exam Data for Last 24 hours I & O for Last 24 hours: Intake & Output 02/19/25 02/20/25 02/21/25 02/22/25 11:59 11:59 11:59 11:59 Weight 152 lb Constitutional Constitutional: no acute distress *Routine HEENT Exam Head: Present normocephalic Eye: Present EOMI and PERRL ENT: Present mucous membranes moist *Routine Neck Exam Neck: Present supple; Absent lymphadenopathy *Routine Respiratory Exam Respiratory: Present CTA bilaterally *Routine Cardiovascular Exam Cardiovascular: Present RRR *Routine Abdominal Exam Abdominal: Present soft and normoactive bowel sounds; Absent tenderness *Routine Rectal Exam Rectal:: deferred *Routine Genitalia Exam Genitalia:: deferred *Routine Extremities Exam Extremities: Absent cyanosis, clubbing or edema *Routine Skin Exam Skin: Present warm; Absent rash *Routine Neurological Exam Neurological: Present alert and oriented X3 Assessment and Plan *Assessment and plan (1) History of colon cancer: Status: Acute Category: Medical Code(s): Z85.038 - Personal history of other malignant neoplasm of large intestine Plan Colonoscopy
[2025-02-22 06:36] VITALS: BP 159/98; PULSE 92; RESP 16; TEMP 36.2; O2SAT 98; BMI 26.9
[2025-02-22] MEDS: LACTATED RINGERS 1000ML 1,000 ML 50 ML IV (06:56)
--- NOTE | 2025-02-22 07:09 | EXP.ANES.CKL ---
[facility] Disclaimer: The information contained in this section may have been updated after the patient was seen, as this information can be updated by other users. Medical History Fatigue Dizziness Impacted cerumen of both ears Hearing loss COVID-19 Colon cancer Cervical cancer Adenocarcinoma in situ of cervix Cervical mass Hyperlipidemia Hypertension Surgical History History of colon resection History of colonoscopy History of cholecystectomy Family History Other No significant family history Social History (Updated 02/22/25 @ 06:37 by Melody Alicea RN) Smoking Status: Never smoker alcohol intake: never substance use type: denies use current occupational status: unemployed Travel in the last 8 weeks?: None caffeine: Yes Have you lived/traveled outside US in past 30 days?: No Contact w/someone who lives/traveled outside US past 30 days?: No Exposure to someone with infectious disease in past 14 days?: No Do you have a fever (greater than 100.4 F or 38 C)?: No Have you tested positive for COVID-19?: No Exposed to someone with COVID-19 in past 14 days?: No Do you have a sore throat?: No Do you have a cough?: No Do you have any weakness?: No Are you experiencing any nausea/vomitting?: No Do you have any diarrhea?: No Are you experiencing any unusual bleeding?: No Do you have any muscle aches/pain?: No Do you have any abdominal pain?: No Are you experiencing loss of taste or smell?: No [facility] Anesthesia Checklist Patient Identification Patient Identification: Arm Band and Verbal (Name & ) Structural Data Admitted From: Home Planned Operative Procedure/s: colonoscopy Consent for Planned Operative Procedure(s) Verified: Yes Verified Documents: Surgical Consent NPO Status Verified Time NPO: 00:00 Additional verifications Anesthesia Reactions: No Airway Assessment Mallampati Score:: Class II C-Spine Mobility Assessed: Yes TMJ Mobility Assessed: Yes Dentition: Good Dentition Neurological Assessment Level of Consciousness: Awake, Alert and Appropriate Hx Seizures: No Numbness or tingling in extremities: No Anesthesia Plan Anesthesia Risk discussed: Yes Anesthesia Plan: Verified ASA Class: II Anesthesia Type: MAC
--- NOTE | 2025-02-22 07:48 | HMH.SCOPE ---
Procedure: Date: 02/22/25 Patient Date of :: 1950 Procedure Performed:: Total colonoscopy to ileocolic anastomosis with polypectomy using snare and biopsy Indications:: Patient is a 74-year-old female whom I had performed colonoscopy on for positive Cologuard on 08/27/2022. She was found to have Jeff circumferential irregular colon mass in the ascending colon with biopsies revealing only tubular adenoma. It was concerning that this was sampling error and she had a colon cancer present. She ultimately underwent right hemicolectomy for colon cancer at [facility] by Dr. Heriberto Gupta. She also has been cared for by the gynecologic oncology team at [facility]. Consensus was for follow-up colonoscopy within 1 year. I performed colonoscopy on 06/24/2023 which revealed rare diverticulosis with no evidence of any polyps or local recurrence. Her oncology team requested 2 colonoscopies within 1 year for assurance. I performed another colonoscopy on 02/10/2024 which revealed no evidence of any recurrence at the ileocolic anastomosis but granulation tissue was biopsied. There was rare sigmoid diverticulosis and internal anal papillae. Performing Provider:: Mack Ibrahim MD Referring Provider:: Jannet Streeter MD Sedation:: MAC sedation Procedure:: Patient history was obtained and appropriate physical examination was performed. Patient's medications and allergies were reviewed. Informed consent was obtained after explaining the benefits, alternatives, and risks of the procedure including, but not limited to, bleeding, perforation, missed lesions, and adverse reaction to anesthesia medications. Patient was transported to endoscopy procedure room. Patient was connected to monitoring devices. Throughout the procedure the patient's blood pressure, pulse, and oxygen saturations were monitored continuously. Patient identification and planned procedure were verified by the staff. Patient was positioned in lateral decubitus position. Digital anorectal exam was performed. Variable stiffness Olympus colonoscope was inserted and advanced under direct visualization to the ileocolic anastomosis. Adequacy of the colonic preparation was noted. The colonoscope was then slowly withdrawn while carefully examining the color, texture, anatomy, and integrity of the mucosoa circumferentially. Within the rectum retroflexion was performed. Colonoscope was then withdrawn. Impression: Colonic preparation was good. Some use of irrigation was used for assurance of visualization. Ileocolic anastomosis was encountered at approximately 100 cm. In the descending colon there was a possible diminutive sessile polyp removed with cold snare. It was retrieved with biopsy forceps with additional tissue removed with biopsy forceps. There were a few sigmoid diverticuli. There was an area of minor irritation and prominence of the mucosa within the rectum and this was biopsied with cold biopsy forceps. Retroflexion revealed somewhat prolapsing internal hemorrhoids and anal papilla. Findings:: Polyp Diverticulosis Irregular mucosa in the rectum, likely inconsequential. Biopsied Internal hemorrhoids Recommendations:: Follow-up colonoscopy pending pathology. Likely 2 years. However if rectal biopsies show adenomatous component may need early sigmoidoscopy. Complications:: None immediately apparent Estimated blood obtained (mL): 1 Colonoscopy Component Colonoscopy Component Was a colonoscopy performed during today's procedure?: Yes Recommended follow up colonoscopy of at least 10 years?: No If no, follow up colonoscopy recommended in ___ years?: See above Reason for not recommending >/= 10 yr follow-up interval?: See above
[2025-02-22 07:49] VITALS: BP 83/45; PULSE 83; RESP 16; TEMP 36.1; O2SAT 98
[2025-02-22 07:59] VITALS: BP 99/59; PULSE 80; O2SAT 100
[2025-02-22 08:09] VITALS: BP 117/74; PULSE 82; O2SAT 100
[2025-02-22 08:19] VITALS: BP 138/91; PULSE 84; O2SAT 100
== END 2025-02-22 08:19 | disposition home or self-care (01) ==
PROVIDERS: PCP Family Medicine; Visit Provider Surgery
PROC: 0DJD8ZZ Inspection of Lower Intestinal Tract, Via Natural or Artificial Opening Endoscopic (ICD-10-PCS; principal; 2025-02-22 07:30)
DX: K63.5 Polyp of colon (principal); K57.30 Diverticulosis of large intestine without perforation or abscess without bleeding; K64.8 Other hemorrhoids; K62.89 Other specified diseases of anus and rectum; E78.5 Hyperlipidemia, unspecified; Z85.41 Personal history of malignant neoplasm of cervix uteri; Z90.49 Acquired absence of other specified parts of digestive tract; Z86.0101 Personal history of adenomatous and serrated colon polyps; Z88.8 Allergy status to other drugs, medicaments and biological substances; Z79.899 Other long term (current) drug therapy
CPT/HCPCS: 45380; 45385; 88305; J2003; J2704; J7120